=== PATIENT | female | born 1965 | race Caucasian/White ===

== ENCOUNTER → 2016-08-24 | Day surgery (SDC) | payer BC, OTHER ==
[2016-08-21 11:35] VITALS: Ht 162.6 cm; Wt 115.5 kg
[~2016-08-24] VITALS: Ht 162.6 cm; Wt 115.5 kg
[~2016-08-24] MED LIST: ATROPINE SULFATE 0.1 MG/ML 5ML SYR IV PRN; CALC500C70 PO; CYAN500T PO; EpHEDrine SULFATE INJ 50 MG/ML AMP IV PRN; FENTANYL CITRATE INJ 50 MCG/1 ML 2 ML VIAL ONE; LANS15CA6 PO; MULT-506 PO; PROPOFOL IV EMULSION 10 MG/ML 20 ML VIAL IV ONE; SIMV40TA2 PO; SODIUM CHLORIDE 0.9% 500ML 500 ML IV ONE; SUCR1TAB29 PO; SUMA50TA15 PO; ZNTT/150 PO
--- NOTE | 2016-08-24 11:50 | Endo History and Physical ---
History & Physical Date of Service: Aug 24, 2016. Chief Complaint: Reflux Referring Physician: Ramses Ng History of Present Illness 50 yo CF who presents for EGD secondary to GERD Past Medical History Arthritis, Reflux, Hypertension Past Surgical History Hx Cardiac Surgery: No Hx Internal Defibrillator: No Hx Pacemaker: No Hx Abdominal Surgery: Yes (MACI BSO, LAP BAND AND REMOVED AND GASTRIC BYPASS, LAP LYNN, APPY) Hx of Implantable Prosthesis: No Hx Post-Op Nausea and Vomiting: Yes Hx Cancer Surgery: No Hx Thoracic Surgery: No Hx Orthopedic: Yes (RT FOOT SURGERY) Hx Urinary Tract Surgery: Yes (CYSTO STONE BASKETING, LITHORIPSY, BLADDER SLING AND REPAIR TEAR) Social History Smoking Status: Never Smoker Hx Substance Use: No Hx Alcohol Use: No Allergies Coded Allergies: Penicillins (Verified Allergy, Unknown, ? REMEMBER, 08/24/16) Current Medications Reported Home Medications Medications Dose Route/Sig Max Daily Dose Days Date Category Carafate (Sucralfate) 1 Gm Tab 1 Tab PO QID 30 08/21/16 Reported Imitrex (Sumatriptan Succinate) 50 Mg Tab 50 Mg PO PRN PRN 08/21/16 Reported Prevacid (Lansoprazole) 15 Mg Capcr 15 Mg PO QAM 08/21/16 Reported Multivitamin (Multivitamins) Tab 1 Tab PO QAM 04/04/15 Reported Vitamin B-12 (Cyanocobalamin) 500 Mcg Tab 500 Mcg PO QAM 04/04/15 Reported Os-Chinedu 500 Plus D (Calcium/Vitamin D) Tab 1 Tab PO QAM 04/04/15 Reported Zocor (Simvastatin) 40 Mg Tab 40 Mg PO HS 10/25/08 Reported Zantac (Ranitidine HCl) 150 Mg Tab 300 Mg PO HS 10/25/08 Reported Vital Signs Weight (Kilograms): 115.45 Height (Feet): 5 Height (Inches): 4 Date Time Temp Pulse Resp B/P (MAP) Pulse Ox O2 Delivery O2 Flow Rate FiO2 08/24/16 11:26 36.6 88 20 149/87 (107) 95 Room Air Physical Exam General Appearance: WD/WN, no apparent distress Respiratory/Chest: Auscultation: breath sounds normal Cardiovascular: Heart Auscultation: RRR Abdomen: Bowel Sounds: normal Inspection & Palpation: soft, non-distended, no tenderness, guarding & rebound Assessment and Plan Assessment: 50 yo CF who presents for EGD secondary to GERD Plan: Proceed with EGD.
--- NOTE | 2016-08-24 12:12 | Discharge Instructions ---
Endoscopy Patient Instructions Date / Procedure(s) Performed Aug 24, 2016. EGD Allergy Information Coded Allergies: Penicillins (Verified Allergy, Unknown, ? REMEMBER, 08/24/16) Discharge Date / Findings Aug 24, 2016. Normal EGD s/p Ynaet-En-Y gastric bypass Medication Instructions OK to resume all medications today as prescribed Reported Home Medications Medications Dose Route/Sig Max Daily Dose Days Date Category Carafate (Sucralfate) 1 Gm Tab 1 Tab PO QID 30 08/21/16 Reported Imitrex (Sumatriptan Succinate) 50 Mg Tab 50 Mg PO PRN PRN 08/21/16 Reported Prevacid (Lansoprazole) 15 Mg Capcr 15 Mg PO QAM 08/21/16 Reported Multivitamin (Multivitamins) Tab 1 Tab PO QAM 04/04/15 Reported Vitamin B-12 (Cyanocobalamin) 500 Mcg Tab 500 Mcg PO QAM 04/04/15 Reported Os-Chinedu 500 Plus D (Calcium/Vitamin D) Tab 1 Tab PO QAM 04/04/15 Reported Zocor (Simvastatin) 40 Mg Tab 40 Mg PO HS 10/25/08 Reported Zantac (Ranitidine HCl) 150 Mg Tab 300 Mg PO HS 10/25/08 Reported Provider Instructions Activity Restrictions - No exercising or heavy lifting for 24 hours. - Do not drink alcohol the day of the procedure. - Do not drive a car or operate machinery until the day after the procedure. - Do not make any important decisions or sign important papers in 24 hours after the procedure. Following Day: - Return to full activity which may include returning to work/school. Diet Start your diet with liquids and light foods (jello, soup, juice, toast). Then eat your usual diet if not nauseated. Treatment For Common After Affects For mild abdominal pain, bloating, or excessive gas: - Rest - Eat lightly - Lie on right side Follow-Up Information Follow-up with Ramses Ng as scheduled Anesthesia Information What You Should Know You have had a procedure that required some medicine to reduce anxiety and discomfort. This treatment is called moderate sedation. After receiving the treatment, you may be sleepy, but you will be able to breathe on your own. The effects of the treatment may last for several hours. Follow these instructions along with Activity/Diet recommendations noted above: * Do NOT do anything where dizziness or clumsiness would be dangerous. * Rest quietly at home today, then you can be up and about tomorrow. * Have a responsible person stay with you the rest of today. * You may have had an I.V. today. If so, you may take the dressing off later today. Recommendations Call your doctor if: * Trouble breathing * Continuous vomiting for more than 24 hours * Temperature above 101 degrees * Severe abdominal pain or bloating * Pain not relieved by pain medicine ordered * There is increased drainage or redness from any incision * A large amount of rectal bleeding greater than 2-3 tablespoons. (If you had a polyp/s removed or have hemorrhoids, a small amount of blood - from the rectum is to be expected.) * You have any unanswered questions or concerns. IN THE EVENT OF A SERIOUS EMERGENCY, GO TO THE NEAREST EMERGENCY ROOM Your discharge instructions were prepared by provider Juan Jose Kat. Patient Instructions Signature Page Promise Wiseman Patient (or Guardian) Signature/Date: I have read and understand the instructions given to me by my caregivers. Caregiver/RN/Doctor Signature/Date: The above-named patient and/or guardian has received patient instructions on this date. + Original Patient Signature Page (only) stays with chart. Please make copy for patient.
--- NOTE | 2016-08-24 12:15 | GI REPORT ---
Procedure Date: 08/24/2016 11:46 AM Procedure: Upper GI endoscopy Indications: Suspected gastro-esophageal reflux disease Medicines: Monitored Anesthesia Care Complications: No immediate complications. Estimated Blood Loss: Estimated blood loss: none. Procedure: Pre-Anesthesia Assessment: - Prior to the procedure, a History and Physical was performed, and patient medications and allergies were reviewed. The patient's tolerance of previous anesthesia was also reviewed. The risks and benefits of the procedure and the sedation options and risks were discussed with the patient. All questions were answered, and informed consent was obtained. Prior Anticoagulants: The patient has taken no previous anticoagulant or antiplatelet agents. ASA Grade Assessment: III - A patient with severe systemic disease. After reviewing the risks and benefits, the patient was deemed in satisfactory condition to undergo the procedure. After obtaining informed consent, the endoscope was passed under direct vision. Throughout the procedure, the patient's blood pressure, pulse, and oxygen saturations were monitored continuously. The scope was introduced through the mouth, and advanced to the second part of duodenum. The upper GI endoscopy was accomplished without difficulty. The patient tolerated the procedure well. Findings: The esophagus was normal. Evidence of a Yanet-en-Y gastrojejunostomy was found. The gastrojejunal anastomosis was characterized by healthy appearing mucosa. This was traversed. The [id number] limb was not examined as it could not be found. The examined jejunum was normal. Impression: - Normal esophagus. - Yanet-en-Y gastrojejunostomy with gastrojejunal anastomosis characterized by healthy appearing mucosa. - Normal examined jejunum. - No specimens collected. Recommendation: - Resume previous diet. - Continue present medications. - Return to GI clinic as previously scheduled. Juan Jose Kat DO 08/24/2016 12:15:01 PM This report has been signed electronically. Note Initiated On: 08/24/2016 11:46 AM I attest to the content of the Intraoperative Record and orders documented therein, exceptions below
--- NOTE | 2016-08-24 12:32 | Anesthesiology Progress Note ---
Anesthesia Post Op Note Date & Time Aug 24, 2016 at 12:32 Vital Signs Pain Intensity: 0 Vital Signs Past 12 Hours Date Time Temp Pulse Resp B/P (MAP) Pulse Ox O2 Delivery O2 Flow Rate FiO2 08/24/16 12:18 77 16 137/77 (97) 94 Room Air 08/24/16 12:03 82 20 112/64 (80) 92 Room Air 08/24/16 11:26 36.6 88 20 149/87 (107) 95 Room Air Notes Mental Status: alert / awake / arousable, participated in evaluation Pt Amnestic to Procedure: Yes Nausea / Vomiting: adequately controlled Pain: adequately controlled Airway Patency, RR, SpO2: stable & adequate BP & HR: stable & adequate Hydration State: stable & adequate Anesthetic Complications: no major complications apparent
[2016-08-24 12:33] VITALS: BP 135/80; PULSE 82; O2SAT 95
== END | disposition home or self-care (01) ==
LOC: C.GI 11:08
PROVIDERS: ATTEND Internal Medicine
DX: K21.9 Gastro-esophageal reflux disease without esophagitis (principal); Z88.0 Allergy status to penicillin; Z98.84 Bariatric surgery status; Z90.49 Acquired absence of other specified parts of digestive tract; Z90.89 Acquired absence of other organs; Z98.890 Other specified postprocedural states; E66.01 Morbid (severe) obesity due to excess calories; Z68.41 Body mass index [BMI] 40.0-44.9, adult

== ENCOUNTER 2019-05-18 08:39 | Inpatient (IN) ==
--- NOTE | 2019-05-18 09:00 | Emergency Department Note ---
History of Present Illness General Chief complaint: Infection Stated complaint: PASSED KIDNEY STONE POSSIBLE INFECTION Time Seen by Provider: 05/18/19 08:53 History of Present Illness Maximum Pain Intensity: 8 This is a 53-year-old female that presents to the emergency department via priv ate vehicle with complaints of "passed kidney stone, possible infection". The patient states that on May 05 she underwent a laser procedure for nephrolithiasis. She notes that she then passed a part of the stone on Wednesday. She notes that since the procedure she has been experiencing low back pain, and now intermittent fevers, chills/aches, low back pain, diarrhea, nausea, vomiting. She notes the pain is achy like and does not radiate. Pain is worse with flexion and there are no upper respiratory symptoms. No recent travel. She did receive her flu vaccination. She notes decreased appetite. She notes watery bowel movements. She notes lower quadrant abdominal pain with pressure. She is worried there could be an infection. Overall discomfort is an 8/10. Home Medications Home Medications Medication Instructions Recorded Confirmed Type cyanocobalamin (vitamin B-12) 500 mcg PO QDL 05/18/19 05/18/19 History [Vitamin B-12] cyclobenzaprine 10 mg PO DAILY PRN 05/18/19 05/18/19 History famotidine [Pepcid] 20 mg PO BID 05/18/19 05/18/19 History metformin [Glucophage] 500 mg PO BID 05/18/19 05/18/19 History rosuvastatin [Crestor] 10 mg PO HS 05/18/19 05/18/19 History sumatriptan succinate [Imitrex] 50 mg PO DAILY PRN MDD 100 mg 05/18/19 05/18/19 History Allergies Allergy/AdvReac Type Severity Reaction Status Date / Time Penicillins Allergy Unknown ? REMEMBER Verified 05/18/19 09:29 codeine AdvReac Migraine Verified 05/18/19 09:29 levofloxacin [From Levaquin] AdvReac Dizziness Verified 05/18/19 09:29 Past Med/Surg History Medical History Hyperlipidemia Nephrolithiasis Type 2 diabetes mellitus Surgical History Status post laser lithotripsy of ureteral calculus Family History Father Myocardial infarction Uncle Myocardial infarction Uncle Myocardial infarction Denies family history of Stroke Social History Preferred Language: Romansh Communication Ability: Effective Director Of Convention Services Required: No Beliefs That Will Affect Care: None Current Living Situation: Spouse Feels Safe at Home: Yes Smoking Status: Never smoker Second Hand Exposure: No ; Hx Alcohol Use: No Hx Substance Use: No Review of Systems A total of 10 systems reviewed and were otherwise negative Physical Exam Vital Signs Vital Signs - 24 hr 05/18/19 08:43 05/18/19 11:00 Temperature 36.9 C Temperature Source Oral Pulse Rate 117 H Pulse Rate [Right Finger] 97 H Pulse Rhythm Regular Pulse Strength Normal Respiratory Rate 20 20 Respiratory Effort / Characteristics Non-Labored Spontaneous Non-Labored Spontaneous Respiratory Depth Normal Normal Respiratory Pattern Regular Regular Blood Pressure 168/82 H Blood Pressure [Right Arm] 178/70 H Blood Pressure Mean 110 Blood Pressure Mean [Right Arm] 106 Blood Pressure Position Sitting Blood Pressure Position [Right Arm] Lying Pulse Oximetry 93 93 Oxygen Delivery Method Room Air Room Air Sepsis Recent Fever Within 48 Hours Yes Sepsis New/Unexplained Change in Mental Status No Sepsis Action Taken by Nursing No Action Required VITAL SIGNS - Vital signs and nursing notes were reviewed. Tachycardic and afebrile. GENERAL -53-year-old female appearing her stated age who is in no acute distress. Communicates well with provider and answers questions appropriately. SKIN - Without rashes. HEAD - NC/AT. EYES - PERRL with EOMI bilaterally. Sclera anicteric. EARS - No deformities of external structures noted on gross examination bilaterally. NOSE - Midline and without cyanosis. No epistaxis or purulent drainage noted. MOUTH/OROPHARYNX - Without perioral cyanosis. No lymphadenopathy noted. No nuchal rigidity. LUNGS - Chest wall symmetric without accessory muscle use, intercostals retractions, or central cyanosis. Normal vesicular breath sounds CTA B/L. No wheezes, rales, or rhonchi appreciated. CARDIAC - RRR with S1/S2. No murmur, rubs, or gallops appreciated. ABDOMEN - Abdominal contour normal without pulsations or visible masses. BS normoactive all four quadrants. No tenderness, palpable masses, hepatosplenomegaly, or ascites noted. EXTREMITIES - No clubbing or peripheral cyanosis. No pretibial edema present. +5/5 strength noted in UE/LE bilaterally. NEUROLOGIC - Cranial nerves II through XII grossly intact. PSYCH - A&O, and cooperates fully with examiner. Pt is very pleasant and interacts well with examiner. Course Administered Medications Lactated Ringer's (Lr) 1,000 mls @ 120 mls/hr IV .Q8H20M FRED Stop: 06/17/19 14:18 Last Admin: 05/18/19 14:39 Dose: 120 mls/hr Documented by: [id number] Ioversol (Optiray 320 100ml) 93 ml IV ONCE PRN PRN Reason: Interaction Checking Stop: 05/22/19 10:42 Last Admin: 05/18/19 10:43 Dose: 93 ml Documented by: [id number] Discontinued Medications Sodium Chloride (Nss 1000ml) 1,000 mls @ 999 mls/hr IV .Q1H1M FRED Stop: 05/18/19 10:15 Last Infusion: 05/18/19 11:00 Dose: 0 mls/hr Documented by: [id number] Admin: 05/18/19 09:57 Dose: 999 mls/hr Documented by: [id number] Sodium Chloride (Nss 1000ml) 1,000 mls @ 999 mls/hr IV .Q1H1M FRED Stop: 05/18/19 12:45 Last Infusion: 05/18/19 15:08 Dose: 0 mls/hr Documented by: [id number] Admin: 05/18/19 12:32 Dose: 999 mls/hr Documented by: [id number] Ceftriaxone Sodium (Rocephin) 2,000 mg in 70 mls @ 140 mls/hr IV NOW STA Stop: 05/18/19 12:14 Last Infusion: 05/18/19 15:08 Dose: 0 mls/hr Documented by: [id number] Admin: 05/18/19 12:32 Dose: 140 mls/hr Documented by: [id number] Medical Decision Making Laboratory Data Result diagrams: 05/18/19 09:24 05/18/19 09:24 Lab Results 05/18/19 05/18/19 05/18/19 Range/Units 09:24 09:24 09:24 WBC 8.08 (4.8-10.8) K/uL RBC 4.74 (4.2-5.4) M/uL Hgb 14.7 (12.0-16.0) g/dL Hct 42.2 (37-47) % MCV 89.0 (80-100) fL MCH 31.0 (25-34) pg MCHC 34.8 (32-36) g/dL RDW Std Deviation 39.6 (36.4-46.3) fL RDW Coeff of Sayda 12.2 (11.5-14.5) % Plt Count 154 (130-400) K/uL MPV 9.5 (7.4-10.4) fL Immature Gran % (Auto) 0.4 % Neut % (Auto) 74.5 % Lymph % (Auto) 12.6 % [place] % (Auto) 11.0 % Eos % (Auto) 0.9 % Baso % (Auto) 0.6 % Immature Gran # (Auto) 0.03 H (0.00-0.02) K/uL Neut # (Auto) 6.02 (1.4-6.5) K/uL Lymph # (Auto) 1.02 L (1.2-3.4) K/uL [place] # (Auto) 0.89 H (0.11-0.59) K/uL Eos # (Auto) 0.07 (0-0.5) K/uL Baso # (Auto) 0.05 (0-0.2) K/uL Sodium 133 L (136-145) mmol/L Potassium 3.8 (3.5-5.1) mmol/L Chloride 102 (98-107) mmol/L Carbon Dioxide 24 (21-32) mmol/L Anion Gap 7.0 (3-11) BUN 12 (7-18) mg/dl Creatinine 0.95 (0.6-1.2) mg/dl Est Cr Clr Drug Dosing 84.5 ml/min Est GFR ( Amer) 79.3 Est GFR (Non-Af Amer) 68.4 BUN/Creatinine Ratio 12.3 (10-20) Glucose 268 H (70-99) mg/dl Calcium 8.9 (8.5-10.1) mg/dl Total Bilirubin 0.7 (0.2-1) mg/dl AST 17 (15-37) U/L ALT 45 (12-78) U/L Alkaline Phosphatase 102 (45-117) U/L Total Protein 7.4 (6.4-8.2) gm/dl Albumin 3.1 L (3.4-5.0) gm/dl Globulin 4.3 H (2.5-4.0) gm/dl Albumin/Globulin Ratio 0.7 L (0.9-2) Urine Color Dark Yellow Urine Appearance Cloudy A (Clear) Urine pH 5.5 (4.5-7.5) Ur Specific [place] 1.027 (1.000-1.030) Urine Protein 1+ H (Negative) Urine Glucose (UA) 3+ H (Negative) Urine Ketones 3+ H (Negative) Urine Blood 2+ H (Negative) Urine Nitrite Negative (Negative) Urine Bilirubin Negative (Negative) Urine Urobilinogen Negative (Negative) Ur Leukocyte Esterase Trace H (Negative) Urine WBC (Auto) >30 H (0-5) /hpf Urine RBC (Auto) 5-10 H (0-4) /hpf U Hyaline Cast (Auto) 10-30 H (0-5) /lpf U Epithel Cells (Auto) 20-30 H (0-5) /lpf Urine Bacteria (Auto) 2+ H (Negative) Urine Yeast Budding A (None Prsent) POC Ur Test (NEG) 05/18/19 Range/Units 09:24 WBC (4.8-10.8) K/uL RBC (4.2-5.4) M/uL Hgb (12.0-16.0) g/dL Hct (37-47) % MCV (80-100) fL MCH (25-34) pg MCHC (32-36) g/dL RDW Std Deviation (36.4-46.3) fL RDW Coeff of Sayda (11.5-14.5) % Plt Count (130-400) K/uL MPV (7.4-10.4) fL Immature Gran % (Auto) % Neut % (Auto) % Lymph % (Auto) % [place] % (Auto) % Eos % (Auto) % Baso % (Auto) % Immature Gran # (Auto) (0.00-0.02) K/uL Neut # (Auto) (1.4-6.5) K/uL Lymph # (Auto) (1.2-3.4) K/uL [place] # (Auto) (0.11-0.59) K/uL Eos # (Auto) (0-0.5) K/uL Baso # (Auto) (0-0.2) K/uL Sodium (136-145) mmol/L Potassium (3.5-5.1) mmol/L Chloride (98-107) mmol/L Carbon Dioxide (21-32) mmol/L Anion Gap (3-11) BUN (7-18) mg/dl Creatinine (0.6-1.2) mg/dl Est Cr Clr Drug Dosing ml/min Est GFR ( Amer) Est GFR (Non-Af Amer) BUN/Creatinine Ratio (10-20) Glucose (70-99) mg/dl Calcium (8.5-10.1) mg/dl Total Bilirubin (0.2-1) mg/dl AST (15-37) U/L ALT (12-78) U/L Alkaline Phosphatase (45-117) U/L Total Protein (6.4-8.2) gm/dl Albumin (3.4-5.0) gm/dl Globulin (2.5-4.0) gm/dl Albumin/Globulin Ratio (0.9-2) Urine Color Urine Appearance (Clear) Urine pH (4.5-7.5) Ur Specific [place] (1.000-1.030) Urine Protein (Negative) Urine Glucose (UA) (Negative) Urine Ketones (Negative) Urine Blood (Negative) Urine Nitrite (Negative) Urine Bilirubin (Negative) Urine Urobilinogen (Negative) Ur Leukocyte Esterase (Negative) Urine WBC (Auto) (0-5) /hpf Urine RBC (Auto) (0-4) /hpf U Hyaline Cast (Auto) (0-5) /lpf U Epithel Cells (Auto) (0-5) /lpf Urine Bacteria (Auto) (Negative) Urine Yeast (None Prsent) POC Ur Test NEG (NEG) Imaging Data Radiologist's Impression: CT abd pelvis IV con only CLINICAL HISTORY: 53 years-old Female presenting with back pain, tachycardia, fever, chills, aches. TECHNIQUE: Multidetector CT of the abdomen and pelvis was performed after the administration of intravenous contrast. IV contrast: 93 mL of Optiray 320. One or more dose lowering techniques were used consistent with the principles of ALARA (as low as reasonably achievable), including automatic exposure control, mA or kV adjustment to individual patient size, and/or use of iterative reconstruction. COMPARISON: 12/08/2017. CT DOSE (mGy.cm): The estimated cumulative dose is 1745.89 mGy.cm. FINDINGS: Head Of Precision Targeting topogram: Unremarkable. Lung bases: Normal heart size. No pericardial or pleural effusion. Minimal dependent changes likely atelectasis. Liver: Normal morphology. Density consistent with severe hepatic steatosis. No focal lesion. Patent hepatic vasculature. Biliary: No intrahepatic or extrahepatic biliary ductal dilatation. Gallbladder surgically absent. Pancreas: Moderate parenchymal atrophy. Spleen: Accessory spleen near the splenic hilum. Adrenal glands: Normal. Kidneys and ureters: Moderate to severe right pelvocaliectasis and distention of the right ureter with diffuse urothelial thickening. Obstructing 4 mm calculus in the distal right ureter a few centimeters proximal to the right ureterovesical junction. There is mild delayed perfusion of the right kidney. An additional right renal calculus is noted at the lower pole measuring 5 mm, which is nonobstructing. Right renal cysts noted. No left nephrolithiasis. Asymmetric right moderate perinephric fat stranding. Left ureter nondistended. Bladder: Normal. No bladder calculi. Pelvic organs: Uterus surgically absent. Bowel: Fatty atrophy of the appendix suspected. No bowel obstruction. Postsurgical changes of antecolic Yanet-en-Y gastric bypass. Distal anastomosis widely patent. No pathologic distention of the excluded stomach. Few foci of gas in the stomach are evident. A gastrogastric fistula is difficult to exclude. Peritoneal cavity: No free fluid or intraperitoneal gas. Trace retroperitoneal fluid on the right. Lymph nodes: No enlarged lymph nodes in the abdomen or pelvis. Vasculature: Atherosclerosis of the normal caliber abdominal aorta. IVC patent. Abdominal wall: Small fat-containing umbilical hernia. Musculoskeletal: Degenerative changes of the spine. Degenerative changes of the sacral iliac joints. IMPRESSION: 1. Obstructing 4 mm calculus in the distal right ureter a few centimeters proximal to the right UVJ with resultant moderate to severe right hydroureteronephrosis. 2. Additional nonobstructing right nephrolithiasis. 3. Postsurgical changes of Yanet-en-Y gastric bypass. No bowel obstruction. 4. The presence of gas in the stomach is nonspecific though can be seen in the setting of a gastrogastric fistula. Argument against the presence of such a fistula is lack of distention of the excluded stomach. Correlate if there has be en weight gain. 5. Severe hepatic steatosis. ACT 112: Negative or not required by law. Electronically signed by: Jeovanny Devine M.D. 05/18/2019 10:57 AM SINGLE VIEW CHEST CLINICAL HISTORY: Preoperative examination FINDINGS: An AP, portable, upright chest radiograph is compared to study dated 04/08/2015. The cardiomediastinal silhouette is unremarkable. There is mild elevation of the right hemidiaphragm and bibasilar atelectasis. No airspace consolidation or large pleural effusion is identified. No pneumothorax is seen. The bony thorax is grossly intact. IMPRESSION: No active disease in the chest. ACT 112: Negative or not required by law. Electronically signed by: Ryan Florence M.D. 05/18/2019 1:25 PM MDM Narrative Patient was seen and evaluated as above in room B9. Review was performed of nursing notes and vital signs. After obtaining a thorough history and physical examination the above work up was performed. She presents to us today with back pain in the setting of recent urologic procedure. She has a history of stones. She passed a small part of the stone a few days ago. She is nontoxic on exam but is tachycardic. Given the recent history with her presentation it was felt that further work-up here was warranted. A CT scan of the abdomen pelvis was obtained and there is an obstructing 4 mm calculus in the distal right ureter a few centimeters proximal to the right UVJ with resultant moderate to severe right-sided hydroureteronephrosis. Additionally, the urinalysis is concerning for that of infection. She also subjectively has fevers. With this finding I did reach out to our on-call urologist as that was the patient preference rather than being transferred back to [facility], and in speaking with our urology team recommendation is for admission to the medicine team with urology consult with a ddition of fluids, n.p.o. and antibiotics. IV Rocephin was ordered. There is no leukocytosis or anemia. No emergent metabolic disturbance. Mild hyperglycemia in the setting of known diabetes. UPT is negative. Patient remitted for further evaluation and management. I did add on blood culture. 2 g Rocephin was ordered. Fluids were also ordered. Please refer to further documentation regarding her stay. I was asked by the urology team preoperatively to obtain an EKG and chest x-ray. These are as above. EKG is normal sinus rhythm, rate of 92 bpm. There is a QTC of 425. No ST elevation. This 60. EKG of April 08, 2015 and no significant change was found. Case was discussed with the attending physician. In the evaluation and treatment of this patient the following differential diagnoses were entertained: UTI, pyelonephritis, sepsis, pneumonia, dissection, torsion, infected ureteral calculi, among others. Impression & Plan Hydronephrosis with urinary obstruction due to ureteral calculus, UTI (urinary tract infection) Discharge Plan Visit Data *Final* Discharge Date/Time: 05/18/19 13:56 Chief Complaint: Infection Stated Complaint: PASSED KIDNEY STONE POSSIBLE INFECTION ED Provider: Nikko Whipple ED Midlevel Provider: John Montanez Discharge Problem: Hydronephrosis with urinary obstruction due to ureteral calculus, UTI (urinary tract infection) Patient Disposition: Admitted As Inpatient Condition: Good Discharge Instructions Interventions: ED Discharge Assessment Last Done: 05/18/19 13:56
[2019-05-18] MEDS ORDERED: SODIUM CHLORIDE 0.9% 1000ML 1,000 ML IV SCH ×2 (09:15→11:45)
[2019-05-18 09:54] LABS: Basophils # (auto) 0.05 K/uL (0-0.2); Basophils % (auto) 0.6 %; Eosinophils # (auto) 0.07 K/uL (0-0.5); Eosinophils % (auto) 0.9 %; Hematocrit (blood only) 42.2 % (37-47); Hemoglobin 14.7 g/dL (12.0-16.0); Immature Granulocytes # (auto) 0.03 K/uL (0.00-0.02); Immature Granulocytes % (auto) 0.4 %; Lymphocytes # (auto) 1.02 K/uL (1.2-3.4); Lymphocytes % (auto) 12.6 %; Mean Corpuscular Hgb Conc 34.8 g/dL (32-36); Mean Platelet Volume 9.5 fL (7.4-10.4); Monocytes # (auto) 0.89 K/uL (0.11-0.59); Neutrophils # (auto) 6.02 K/uL (1.4-6.5); Neutrophils % (auto) 74.5 %; Platelet Count 154 K/uL (130-400); RDW Coefficient of Variation 12.2 % (11.5-14.5); RDW Standard Deviation 39.6 fL (36.4-46.3); Red Blood Count 4.74 M/uL (4.2-5.4); White Blood Count 8.08 K/uL (4.8-10.8)
[2019-05-18 10:01] LABS: Appearance Urine Cloudy (Clear); Bilirubin Urine Negative (Negative); Blood Urine 2+ (Negative); Color Urine Dark Yellow; Epithelial Cell Urine Auto 20-30 /lpf (0-5); Glucose Urine UA 3+ (Negative); Leukocyte Esterase Urine Trace (Negative); Nitrite Urine Negative (Negative); Protein Urine 1+ (Negative); Specific Gravity Urine 1.027 (1.000-1.030); Urobilinogen Urine Negative (Negative); WBC Urine Automated >30 /hpf (0-5); pH Urine 5.5 (4.5-7.5)
[2019-05-18 10:07] LABS: Ketones Urine 3+ (Negative)
[2019-05-18 10:14] LABS: Bacteria Urine Automated 2+ (Negative)
[2019-05-18 10:17] LABS: Albumin Level 3.1 gm/dl (3.4-5.0); BUN Creatinine Ratio 12.3 (10-20); Calcium 8.9 mg/dl (8.5-10.1); Creatinine Clr Calc Pharmacy 84.5 ml/min; Est GFR (African American) 79.3; Est GFR (Non-African American) 68.4; Potassium 3.8 mmol/L (3.5-5.1)
[2019-05-18 10:20] LABS: Albumin Globulin Ratio 0.7 (0.9-2); Bilirubin,Total 0.7 mg/dl (0.2-1); Globulin 4.3 gm/dl (2.5-4.0); Total Protein 7.4 gm/dl (6.4-8.2)
[2019-05-18] MEDS ORDERED: IOVERSOL 100ml IV PRN (10:43)
--- NOTE | 2019-05-18 10:58 | CT Scan Report ---
CT abd pelvis IV con only CLINICAL HISTORY: 53 years-old Female presenting with back pain, tachycardia, fever, chills, aches. TECHNIQUE: Multidetector CT of the abdomen and pelvis was performed after the administration of intra venous contrast. IV contrast: 93 mL of Optiray 320. One or more dose lowering techniques were used co nsistent with the principles of ALARA (as low as reasonably achievable), including automatic exposure control, mA or kV adjustment to individual patient size, and/or use of iterative reconstruction. COMPARISON: 12/08/2017. CT DOSE (mGy.cm): The estimated cumulative dose is 1745.89 mGy.cm. FINDINGS: Insurance Service Representative topogram: Unremarkable. Lung bases: Normal heart size. No pericardial or pleural effusion. Minimal dependent changes likely a telectasis. Liver: Normal morphology. Density consistent with severe hepatic steatosis. No focal lesion. Patent h epatic vasculature. Biliary: No intrahepatic or extrahepatic biliary ductal dilatation. Gallbladder surgically absent. Pancreas: Moderate parenchymal atrophy. Spleen: Accessory spleen near the splenic hilum. Adrenal glands: Normal. Kidneys and ureters: Moderate to severe right pelvocaliectasis and distention of the right ureter wit h diffuse urothelial thickening. Obstructing 4 mm calculus in the distal right ureter a few centimete rs proximal to the right ureterovesical junction. There is mild delayed perfusion of the right kidney . An additional right renal calculus is noted at the lower pole measuring 5 mm, which is nonobstructi ng. Right renal cysts noted. No left nephrolithiasis. Asymmetric right moderate perinephric fat stran ding. Left ureter nondistended. Bladder: Normal. No bladder calculi. Pelvic organs: Uterus surgically absent. Bowel: Fatty atrophy of the appendix suspected. No bowel obstruction. Postsurgical changes of antecol ic Yanet-en-Y gastric bypass. Distal anastomosis widely patent. No pathologic distention of the exclud ed stomach. Few foci of gas in the stomach are evident. A gastrogastric fistula is difficult to exclu de. Peritoneal cavity: No free fluid or intraperitoneal gas. Trace retroperitoneal fluid on the right. Lymph nodes: No enlarged lymph nodes in the abdomen or pelvis. Vasculature: Atherosclerosis of the normal caliber abdominal aorta. IVC patent. Abdominal wall: Small fat-containing umbilical hernia. Musculoskeletal: Degenerative changes of the spine. Degenerative changes of the sacral iliac joints. IMPRESSION: 1. Obstructing 4 mm calculus in the distal right ureter a few centimeters proximal to the right UVJ with resultant moderate to severe right hydroureteronephrosis. 2. Additional nonobstructing right nephrolithiasis. 3. Postsurgical changes of Yanet-en-Y gastric bypass. No bowel obstruction. 4. The presence of gas in the stomach is nonspecific though can be seen in the setting of a gastroga stric fistula. Argument against the presence of such a fistula is lack of distention of the excluded stomach. Correlate if there has been weight gain. 5. Severe hepatic steatosis. ACT 112: Negative or not required by law. Electronically signed by: Jeovanny Devine M.D. 05/18/2019 10:57 AM
[2019-05-18] MEDS ORDERED: cefTRIAXone SODIUM 2,000 MG/70 ML BAG IV STA (11:45)
--- NOTE | 2019-05-18 12:47 | History & Physical Report ---
Date of Service May 18, 2019 Assessment & Plan (1) Fever: Concerning given recent stent with removal on 05/10 UA noted for trace leuk est and neg nitrites, budding yeast Urine cx pending Started on rocephine, flagyl WBC WNL Blood cx pending (2) Nephrolithiasis: Noted on CTAP Urology c/s pending, ED states they discussed recs for NPO with IVF, abx Rocephin started in the ED, will continue (3) Type 2 diabetes mellitus: Last metformin dose was 05/14 due to feeling unwell SSI PRN Holding metformin A1c pending (4) Hyperlipidemia: holding statin (5) Migraine: None x6 months, continue home meds (6) GERD (gastroesophageal reflux disease): holding home meds (7) Hepatic steatosis: Discussed with pt, advised monitoring refined sugar and carbs t/c milk thistle (8) DVT prophylaxis: SCDs given possible need for procedure History of Present Illness Primary Care Provider: Ramses Ng 53 y/o F c/o feeling unwell. Pt states that she had a laser kidney stone removal with stent placement on the R at [facility] on 05/05 for an obstructing stone. She did well with this. She had f/u on 05/10 for stent removal and no issues at that time. On Wednesday, pt started to feel unwell. She started to have pain across her lower back, b/l. It has persistent but is not as intense and is much lower than the pain she had prior with her stone. She has developed nausea without emesis. She has diarrhea. She has crampy abd pain that comes and goes. No dysuria or increased frequency. She states that this feels different than with her stone in April. She is having fevers with this episode. Pt states she has not taken her metformin since Wednesday. She was dx with DM 07/2018. She does not check home BS. Pt denies SOB, chest pain, LE pain or swelling. Pt states she feels a bit improved s/p ED interventions, which so far are IVF and pain medications. Abx are ordered but not given yet. Allergies Allergy/AdvReac Type Severity Reaction Status Date / Time Penicillins Allergy Unknown ? REMEMBER Verified 05/18/19 09:29 codeine AdvReac Migraine Verified 05/18/19 09:29 levofloxacin [From Levaquin] AdvReac Dizziness Verified 05/18/19 09:29 Home Medications Home Medications Medication Instructions Recorded Confirmed Type cyanocobalamin (vitamin B-12) 500 mcg PO QDL 05/18/19 05/18/19 History [Vitamin B-12] cyclobenzaprine 10 mg PO DAILY PRN 05/18/19 05/18/19 History famotidine [Pepcid] 20 mg PO BID 05/18/19 05/18/19 History metformin [Glucophage] 500 mg PO BID 05/18/19 05/18/19 History rosuvastatin [Crestor] 10 mg PO HS 05/18/19 05/18/19 History sumatriptan succinate [Imitrex] 50 mg PO DAILY PRN MDD 100 mg 05/18/19 05/18/19 History Past Med/Surg History Family History (Updated 05/18/19 @ 13:01 by Chari Santos DO) Father Myocardial infarction Uncle Myocardial infarction Uncle Myocardial infarction Denies family history of Stroke Social History (Updated 05/18/19 @ 13:01 by Chari Santos DO) Preferred Language: Guatemalan Feels Safe at Home: Yes Smoking Status: Never smoker Hx Alcohol Use: No Hx Substance Use: No Review of Systems Review of Systems: Pertinent positives and negatives reviewed in HPI--all others negative Physical Exam Constitutional: WD/WN, vitals as above Eyes: normal visual brown by confrontation and + anicteric sclerae Neck: normal visual inspection and trachea midline Respiratory: normal respiratory effort, lungs clear to auscultation Cardiovascular: Rate/Rhythm: regular rate and regular rhythm Gastrointestinal (Abdomen): Inspection/Auscultation: abdomen not distended Percussion/Palpation: abdomen soft; abdomen nontender Musculoskeletal: Head/Neck/Chest: normocephalic and head atraumatic negative for edema, peripheral pulses intact B/L CVA TTPercussion Skin: no rashes, warm and dry Neurologic: awake; not confused Speech / Cognition: normal speech Psychiatric: A+Ox3, euthymic affect Results & Data Vital Signs (Past 12 Hours) Vital Signs Temp Pulse Pulse Resp BP BP Pulse Ox 05/18/19 11:00 97 H 20 178/70 H 93 05/18/19 08:43 36.9 C 117 H 20 168/82 H 93 Diagnostic Findings CTAP: R 4mm obstructing renal stone, possible fistula although listed as less likely, severe hepatic steatosis Code Status & VTE Plan Code Status Full code VTE Prophylaxis Plan VTE Prophylaxis will be ordered: Yes PG Care Time/CCT Total # of Minutes Spent Total Time Spent with Patient: Total time spent is greater than 50% in coordination of care (as documented) at patient's floor/unit and/or counseling patient: Coding Level of Care Code 17960 Initial Inpt Care Lvl 3 Diagnoses Fever R50.9 Nephrolithiasis N20.0 Type 2 diabetes mellitus E11.9 Hyperlipidemia E78.5 Migraine G43.909 GERD (gastroesophageal reflux disease) K21.9 Hepatic steatosis K76.0 DVT prophylaxis Z29.9
--- NOTE | 2019-05-18 13:26 | XRay Report ---
SINGLE VIEW CHEST CLINICAL HISTORY: Preoperative examination FINDINGS: An AP, portable, upright chest radiograph is compared to study dated 04/08/2015. The cardiome diastinal silhouette is unremarkable. There is mild elevation of the right hemidiaphragm and bibasila r atelectasis. No airspace consolidation or large pleural effusion is identified. No pneumothorax is seen. The bony thorax is grossly intact. IMPRESSION: No active disease in the chest. ACT 112: Negative or not required by law. Electronically signed by: Ryan Florence M.D. 05/18/2019 1:25 PM
--- NOTE | 2019-05-18 13:33 | Urology Consultation ---
Date of Consultation May 18, 2019 Assessment & Plan (1) Hydronephrosis: (2) Right ureteral stone: 53 yo F with multiple comorbidities admitted for suspected UTI, fever and hydronephrosis secondary to obstructing 4 mm right ureteral stone. - Keep NPO - Strain all urine Findings reviewed with Dr. Aguilera. Given her suspected UTI, fever, and hydronephrosis in the context of an obstructing 4 mm right ureteral stone, will proceed with OR for cystoscopy, right retrograde pyelogram and right stent placement. Risks and benefits to be reviewed with patient by Dr. Aguilera. OR notified. Preoperative CXR and EKG ordered in ED. Will cover with IV Ceftriaxone preoperatively, initiated in ED. History of Present Illness Reason for Consultation: Nephrolithiasis History of Present Illness 53 yo F with PMHx of type 2 diabetes, hyperlipidemia, migraine, nephrolithiasis, and hydronephrosis admitted with suspected UTI, fever, and hydronephrosis secondary to obstructing 4 mm right ureteral stone. Called from ED for urology consultation for ureteral stone. Patient known to our service, follows with Dr. Mahajan for nephrolithiasis and hydronephrosis. Patient presented to [facility] ED on 05/18/2019 with fever, back pain, and nausea x 2 days. Reports recent right ureteroscopy, laser lithotripsy, and right stent placement for ~5 mm right stone on 05/05/19 at [place]. Reports she passed a stone following procedure. She had right stent removed on 05/11/19. She states that 2 days ago she developed fever, low back pain and nausea. She reports fever of T-104 F yesterday, and T-102.1 F this morning. Chart review: Afebrile in ED - 36.9 C Creatinine 0.95 WBC 8.08 UA 2+ blood, trace leuks, WBC > 30, RBC 5-10, 2+ bacteria, budding yeast, negative nitrites UC&S obtained - pending BCx obtained - pending IV Ceftriaxone initiated Imaging: IMPRESSION: 1. Obstructing 4 mm calculus in the distal right ureter a few centimeters proximal to the right UVJ with resultant moderate to severe right hydroureteronephrosis. 2. Additional nonobstructing right nephrolithiasis. 3. Postsurgical changes of Yanet-en-Y gastric bypass. No bowel obstruction. 4. The presence of gas in the stomach is nonspecific though can be seen in the setting of a gastrogastric fistula. Argument against the presence of such a fistula is lack of distention of the excluded stomach. Correlate if there has been weight gain. 5. Severe hepatic steatosis. Pt examined in ED. Awake, alert and sitting up on litter. at bedside. Denies abdominal, flank, or suprapubic pain. Mild nausea, no vomiting. Denies fever or chills at present. Voiding spontaneously. No urgency, frequency, or dysuria. Reports intermittent hematuria since recent urology procedure, improved since stent removal. NPO since yesterday. Allergies Allergy/AdvReac Type Severity Reaction Status Date / Time Penicillins Allergy Unknown ? REMEMBER Verified 05/18/19 09:29 codeine AdvReac Migraine Verified 05/18/19 09:29 levofloxacin [From Levaquin] AdvReac Dizziness Verified 05/18/19 09:29 Home Medications Home Medications Medication Instructions Recorded Confirmed Type cyanocobalamin (vitamin B-12) 500 mcg PO QDL 05/18/19 05/18/19 History [Vitamin B-12] cyclobenzaprine 10 mg PO DAILY PRN 05/18/19 05/18/19 History famotidine [Pepcid] 20 mg PO BID 05/18/19 05/18/19 History metformin [Glucophage] 500 mg PO BID 05/18/19 05/18/19 History rosuvastatin [Crestor] 10 mg PO HS 05/18/19 05/18/19 History sumatriptan succinate [Imitrex] 50 mg PO DAILY PRN MDD 100 mg 05/18/19 05/18/19 History Patient History Medical History (Updated 05/18/19 @ 13:41 by AVEL Davis) Hyperlipidemia Nephrolithiasis Type 2 diabetes mellitus Surgical History (Updated 05/18/19 @ 13:41 by AVEL Davis) Status post laser lithotripsy of ureteral calculus Family History Father Myocardial infarction Uncle Myocardial infarction Uncle Myocardial infarction Denies family history of Stroke Social History Preferred Language: Maldivian Communication Ability: Effective Operation Specialist Required: No Beliefs That Will Affect Care: None Current Living Situation: Spouse Other Information That Helps Us Care for You: No Feels Safe at Home: Yes Safety Concerns: Feels Safe At This Time Smoking Status: Never smoker Do You Dip or Chew Tobacco: No ; Second Hand Exposure: No ; Tobacco Cessation Education Requested by Patient: No Hx Alcohol Use: No Hx Substance Use: No Review of Systems Constitutional: as per Subjective / HPI Gastrointestinal: as per Subjective / HPI Genitourinary: as per Subjective / HPI Physical Exam Constitutional: well developed, well nourished and + obese; no acute distress and not ill appearing nontoxic Respiratory: normal respiratory effort and able to speak in complete sentences; no respiratory distress and no labored breathing Cardiovascular: Extremities: no pedal edema Gastrointestinal (Abdomen): Inspection/Auscultation: abdomen normal to inspection; abdomen not distended Percussion/Palpation: abdomen soft; abdomen nontender and no guarding Skin: Facial flushing Neurologic: moves all extremities and awake Psychiatric: A+Ox3, euthymic affect Genitourinary: + CVA tenderness (mild tenderness to palpation on right ) Results & Data Vital Signs (Past 12 Hours) Vital Signs Temp Pulse Pulse Resp BP BP Pulse Ox 05/18/19 11:00 97 H 20 178/70 H 93 05/18/19 08:43 36.9 C 117 H 20 168/82 H 93 PG Care Time/CCT Total # of Minutes Spent Total Time Spent with Patient: Total time spent is greater than 50% in coordination of care (as documented) at patient's floor/unit and/or counseling patient: Coding Level of Care Code 69737 Inpt Consult Level 3 Diagnoses Hydronephrosis N13.30 Right ureteral stone N20.1
[2019-05-18] MEDS ORDERED: GLUCAGON FOR INJ 1 MG VIAL SQ PRN (14:19)
[2019-05-18] MEDS ORDERED: GLUCOSE 10 TABS/TUBE PO PRN (14:19)
[2019-05-18] MEDS ORDERED: SUMAtriptan succinate 50 MG TAB PO PRN (14:19)
[2019-05-18] MEDS ORDERED: CARBOHYDRATES FOR HYPOGLYCEMIA PO PRN (14:19)
[2019-05-18] MEDS ORDERED: GLUCOSE 40% GEL 15 GM TUBE PO PRN (14:19)
[2019-05-18] MEDS ORDERED: DEXTROSE 50% 50 ML SYRINGE IV PRN (14:19)
[2019-05-18] MEDS ORDERED: MAGNESIUM HYDROXIDE SUSP 30 ML UDC PO PRN (14:19)
[2019-05-18] MEDS ORDERED: ONDANSETRON INJ 2 MG/ML 2 ML VIAL IV PRN ×2 (14:19→16:49)
[2019-05-18] MEDS: LACTATED RINGER'S 1,000 ML IV SCH ×2 (14:39→21:02)
[2019-05-18] MEDS ORDERED: PROPOFOL IV EMULSION 10 MG/ML 20 ML VIAL IV ONE (16:43)
[2019-05-18] MEDS ORDERED: LIDOCAINE HCL 2% 2 ML VIAL/AMP(20MG/ML) INFIL ONE (16:43)
[2019-05-18] MEDS ORDERED: MIDAZOLAM HCL 1 MG/ML 2ML VIAL ONE (16:43)
[2019-05-18] MEDS ORDERED: ONDANSETRON INJ 2 MG/ML 2 ML VIAL ONE (16:43)
[2019-05-18] MEDS ORDERED: fentaNYL citrate 100 MCG/2 ML VIAL ONE (16:43)
--- NOTE | 2019-05-18 16:48 | Anesthesiology Consultation ---
Date of Service May 18, 2019 Assessment & Plan ASA ASA3 Proposed Anesthesia Anesthesia Type: MAC Risk / Benefits Reviewed With: PT / POA / Parent / Guardian, Accepts Plan and Informed Consent Obtained History Surgery Operation Date: 05/18/19 17:15 Proposed Procedures p Cystoscopy, Right Stent Placement - Zack Aguilera, DO Height/Weight Height: 5 ft 4 in Weight: 113.4 kg Allergies Allergy/AdvReac Type Severity Reaction Status Date / Time Penicillins Allergy Unknown ? REMEMBER Verified 05/18/19 09:29 codeine AdvReac Migraine Verified 05/18/19 09:29 levofloxacin [From Levaquin] AdvReac Dizziness Verified 05/18/19 09:29 Medications Home Medications Medication Instructions Recorded Confirmed Last Taken cyanocobalamin (vitamin B-12) 500 mcg PO QDL 05/18/19 05/18/19 05/16/19 [Vitamin B-12] cyclobenzaprine 10 mg PO DAILY PRN 05/18/19 05/18/19 Unknown famotidine [Pepcid] 20 mg PO BID 05/18/19 05/18/19 05/16/19 metformin [Glucophage] 500 mg PO BID 05/18/19 05/18/19 05/16/19 rosuvastatin [Crestor] 10 mg PO HS 05/18/19 05/18/19 05/16/19 sumatriptan succinate [Imitrex] 50 mg PO DAILY PRN MDD 100 mg 05/18/19 05/18/19 Unknown Active Medications Generic Name Dose Route Start Last Admin Trade Name Freq PRN Reason Stop Dose Admin Lactated Ringer's 1,000 mls @ 120 mls/hr 05/18/19 14:19 05/18/19 14:39 Lr IV 06/17/19 14:18 120 mls/hr .[id number] FRED Administration Ioversol 93 ml 05/18/19 10:43 05/18/19 10:43 Optiray 320 100ml IV 05/22/19 10:42 93 ml ONCE PRN Administration Interaction Checking NPO Date Last Intake of Fluids: 05/18/19 Time Last Intake of Fluids: 07:00 Last Intake of Fluids Comment: sips Date Last Intake of Solids: 05/17/19 Time Last Intake of Solids: 15:00 Past Medical History Medical History Hyperlipidemia Nephrolithiasis Type 2 diabetes mellitus Exercise / Class Metabolic Activity II 4-5 Yardwork/Stairs/Walk up hill Past Family History Family History Father Myocardial infarction Uncle Myocardial infarction Uncle Myocardial infarction Denies family history of Stroke Past Surgical History Surgical History Status post laser lithotripsy of ureteral calculus Past Anesthesia History No Hx of Anesthesia Complications and No Family Hx of Anesthesia Complications History of PONV No Hx of PONV and No Hx of Motion Sickness Social History Smoking Status: Never smoker Do You Dip or Chew Tobacco: No Hx Alcohol Use: No Hx Substance Use: No substance use type: does not use Review of Systems denies fever/cough/ colds/ chest pain/ SOB/ ABRAN Constitutional: no fever and no chills Respiratory: no cough and no dyspnea denies ABRAN Cardiovascular: no chest pain and no dyspnea on exertion Physical Exam Vital Signs Last Vital Signs Temp 38.3 C H 05/18/19 16:34 Pulse 100 H 05/18/19 16:34 Resp 20 05/18/19 16:34 BP 162/72 H 05/18/19 16:34 Pulse Ox 93 05/18/19 16:34 ENMT Mouth: no TMJ abnormality and no dentition abnormality Thyromental Distance: > or= 3.5 Finger Breadths Mallampati Class: II Neck neck extension not limited Respiratory normal respiratory effort; no respiratory distress Auscultation: lungs clear to auscultation bilaterally Cardiovascular Rate/Rhythm: regular rate and regular rhythm Neurologic moves all extremities Psychiatric Orientation: alert and oriented x 3 Testing Laboratory Results 05/18/19 09:24 05/18/19 09:24 Urine Color Dark Yellow 05/18/19 09:24 Urine Appearance Cloudy (Clear) A 05/18/19 09:24 Urine pH 5.5 (4.5-7.5) 05/18/19 09:24 Ur Specific [place] 1.027 (1.000-1.030) 05/18/19 09:24 Urine Protein 1+ (Negative) H 05/18/19 09:24 Urine Glucose (UA) 3+ (Negative) H 05/18/19 09:24 Urine Ketones 3+ (Negative) H 05/18/19 09:24 Urine Nitrite Negative (Negative) 05/18/19 09:24 Ur Leukocyte Esterase Trace (Negative) H 05/18/19 09:24 Urine WBC (Auto) >30 /hpf (0-5) H 05/18/19 09:24 Urine RBC (Auto) 5-10 /hpf (0-4) H 05/18/19 09:24 U Hyaline Cast (Auto) 10-30 /lpf (0-5) H 05/18/19 09:24 U Epithel Cells (Auto) 20-30 /lpf (0-5) H 05/18/19 09:24 Urine Bacteria (Auto) 2+ (Negative) H 05/18/19 09:24 05/18/19 16:29 POC Glucose 183 H 05/18/19 09:24 POC Ur Test NEG
[2019-05-18] MEDS ORDERED: ATROPINE SULFATE 0.1 MG/ML 10ML SYR IV PRN (16:49)
[2019-05-18] MEDS ORDERED: ePHEDrine sulfate 50 MG/ML AMP IV PRN (16:49)
[2019-05-18] MEDS ORDERED: HYDROmorphone INJ 2 MG/ML SYR/VIAL IV PRN (16:49)
[2019-05-18] MEDS ORDERED: fentaNYL citrate 100 MCG/2 ML VIAL IV PRN (16:49)
[2019-05-18] MEDS: metroNIDAZOLE 500 MG/100 ML BAG IV SCH ×2 (16:57→22:15)
[2019-05-18] MEDS ORDERED: CONRAY 60% 50 ML VIAL INSTIL ONE (17:15)
--- NOTE | 2019-05-18 17:15 | Operative Report ---
PG Post Operative Report Pre & Post Diagnosis Operation Date: 05/18/19 17:15 Pre-Op Diagnosis: Right ureteral Stone Post-Op Diagnosis: Right ureteral Stone I identified the patient and participated in the time-out.: Yes Procedure Operation Date: 05/18/19 17:15 Actual Procedures p Cystoscopy, Right stone extraction, retrograde pyelogram, aspiration, and Stent Placement(Right) - Zack Aguilera, Surgeon Zack Aguilera, II, DO Professor Of Biochemistry None Estimated Blood Loss 1 Findings Consistent with Post-Op Diagnosis Stent placed in good position. Specimens Urine Right Renal pelvis Right ureteral stone fragments Drains 6 Fr Multilength Anesthesia Type MAC Complications none Disposition Disposition: Recovery Room Indications Patient with obstruction. Risks and benefits discussed at length. Description of Procedure Patient was consented and brought back to the operating room. Patient was placed under anesthesia in the supine position and moved to the dorsal lithotomy position. Patient was prepped and draped in the regular sterile fashion. A time out was completed. A 30degree Cystoscope was placed into the bladder and the entire bladder was examined. The UO's were identified. The UO was cannulized with a catheter, urine was aspirated, and a retrograde pyelogram was completed. A wire was then placed. The stone had to be manipulated to allow wire placement. Part of the stone was extracted in order to allow the wire to advance. This was sent for analysis. With the wire in place, a 6 Fr Double J stent was placed. It was confirmed with fluoroscopy. With the stent in place, the bladder was emptied. The scope was removed. The patient was cleaned, aroused from anesthesia, and transferred to the pacu in stable condition having tolerated the procedure well with no complications. I was present and participated in all aspects of the procedure. The patient will be monitored in the PACU until transferred. I attest to the content of the Intraoperative Record and any orders documented therein. Any exceptions are noted below.
--- NOTE | 2019-05-18 17:21 | Fluoroscopy Report ---
FL retrograde includes kub CLINICAL HISTORY: RT SIDE RETROGRADE COMPARISON STUDY: 05/18/2019 FLUOROSCOPY TIME: 1 minute 28 seconds NUMBER OF FLUOROSCOPIC IMAGES: 2 FINDINGS: Successful right ureteral stent placement IMPRESSION: Successful right ureteral stent placement ACT 112: Negative or not required by law. The above report was generated using voice recognition software. It may contain grammatical, syntax or spelling errors. Electronically signed by: John Brink M.D. 05/18/2019 5:19 PM
--- NOTE | 2019-05-18 17:23 | Electrocardiogram Report ---
Test Reason : Blood Pressure : / mmHG Vent. Rate : 092 BPM Atrial Rate : 092 BPM P-R Int : 168 ms QRS Dur : 086 ms QT Int : 344 ms P-R-T Axes : 032 016 025 degrees QTc Int : 425 ms Normal sinus rhythm Normal ECG When compared with ECG of 08-APR-2015 15:04, No significant change was found Confirmed by Remigio Taylor ([id number]) on 05/18/2019 5:22:50 PM Referred By: REFERRED SELF Confirmed By:Remigio Taylor
--- NOTE | 2019-05-18 17:37 | Anesthesiology Progress Note ---
Date of Service May 18, 2019 Anesthesia Post Procedure Vital Signs Vital Signs: Temp Pulse Pulse Pulse Resp BP BP 05/18/19 17:30 98 H 24 128/65 05/18/19 17:21 37.4 C 98 H 23 113/78 05/18/19 16:34 38.3 C H 100 H 20 162/72 H 05/18/19 14:45 37.2 C 99 H 18 152/84 H 05/18/19 13:45 98 H 20 05/18/19 13:00 97 H 18 170/80 H 05/18/19 11:00 97 H 20 178/70 H 05/18/19 08:43 36.9 C 117 H 20 168/82 H Pulse Ox 05/18/19 17:30 95 05/18/19 17:21 96 05/18/19 16:34 93 05/18/19 14:45 95 05/18/19 13:45 95 05/18/19 13:00 94 05/18/19 11:00 93 05/18/19 08:43 93 Pain Intensity Lower Abdomen: Pain Intensity: 5 Bilateral Lower Back: Pain Intensity: 4 Transfer of Care Handoff Completed per policy Notes Mental Status: alert / awake / arousable and participated in evaluation Nausea / Vomiting: adequately controlled Pain: adequately controlled Airway Patency, RR, SpO2: stable & adequate BP & HR: stable & adequate Hydration State: stable & adequate Anesthetic Complications: no major complications apparent and Pt Satisfied with anesthetic care
[2019-05-18] MEDS: INSULIN ASPART 100 UNITS/ML 3 ML PEN SC SCH ×2 (20:25→22:03)
[2019-05-19] MEDS: ACETAMINOPHEN 325 MG TAB PO PRN ×3 (05:59→19:22)
[2019-05-19] MEDS: metroNIDAZOLE 500 MG/100 ML BAG IV SCH ×3 (05:59→23:14)
[2019-05-19] MEDS: LACTATED RINGER'S 1,000 ML IV SCH ×2 (05:59→18:50)
[2019-05-19 06:40] LABS: Basophils # (auto) 0.03 K/uL (0-0.2); Basophils % (auto) 0.4 %; Eosinophils # (auto) 0.17 K/uL (0-0.5); Eosinophils % (auto) 2.5 %; Hematocrit (blood only) 38.9 % (37-47); Hemoglobin 13.1 g/dL (12.0-16.0); Immature Granulocytes # (auto) 0.03 K/uL (0.00-0.02); Immature Granulocytes % (auto) 0.4 %; Lymphocytes % (auto) 14.5 %; Mean Corpuscular Hgb Conc 33.7 g/dL (32-36); Mean Platelet Volume 9.9 fL (7.4-10.4); Monocytes # (auto) 1.06 K/uL (0.11-0.59); Monocytes % (auto) 15.3 %; Neutrophils # (auto) 4.63 K/uL (1.4-6.5); Neutrophils % (auto) 66.9 %; Platelet Count 128 K/uL (130-400); RDW Coefficient of Variation 12.1 % (11.5-14.5); RDW Standard Deviation 39.2 fL (36.4-46.3); Red Blood Count 4.37 M/uL (4.2-5.4); White Blood Count 6.92 K/uL (4.8-10.8)
[2019-05-19 07:08] LABS: Estimated Average Glucose 235 mg/dl; Hemoglobin A1C 9.8 % (4.5-5.6)
[2019-05-19 07:16] LABS: BUN Creatinine Ratio 11.4 (10-20); Calcium 8.5 mg/dl (8.5-10.1); Creatinine Clr Calc Pharmacy 111.5 ml/min; Est GFR (African American) 110.8; Est GFR (Non-African American) 95.6; Potassium 3.5 mmol/L (3.5-5.1)
--- NOTE | 2019-05-19 08:30 | Anesthesiology Progress Note ---
Date of Service May 19, 2019 Anesthesia Post Procedure Vital Signs Vital Signs: Temp Pulse Pulse Pulse Resp BP BP 05/19/19 07:42 37.4 C 90 128/78 05/19/19 05:55 37.9 C H 05/19/19 03:43 37.8 C H 99 H 16 121/78 05/18/19 23:25 37.7 C H 94 H 16 127/76 05/18/19 21:06 37.4 C 96 H 18 125/74 05/18/19 20:10 37.3 C 85 16 127/80 05/18/19 18:52 37.7 C H 84 20 136/83 05/18/19 18:14 88 16 132/78 05/18/19 17:40 37.5 C 93 H 23 118/75 05/18/19 17:30 98 H 24 128/65 05/18/19 17:21 37.4 C 98 H 23 113/78 05/18/19 16:34 38.3 C H 100 H 20 162/72 H 05/18/19 14:45 37.2 C 99 H 18 152/84 H 05/18/19 13:45 98 H 20 05/18/19 13:00 97 H 18 170/80 H 05/18/19 11:00 97 H 20 178/70 H 05/18/19 08:43 36.9 C 117 H 20 168/82 H Pulse Ox 05/19/19 07:42 91 05/19/19 05:55 05/19/19 03:43 91 05/18/19 23:25 95 05/18/19 21:06 93 05/18/19 20:10 96 05/18/19 18:52 96 05/18/19 18:14 95 05/18/19 17:40 95 05/18/19 17:30 95 05/18/19 17:21 96 05/18/19 16:34 93 05/18/19 14:45 95 05/18/19 13:45 95 05/18/19 13:00 94 05/18/19 11:00 93 05/18/19 08:43 93 Pain Intensity Lower Abdomen: Pain Intensity: 5 Bilateral Lower Back: Pain Intensity: 4 Right Groin: Pain Intensity: 3 Notes Mental Status: alert / awake / arousable and participated in evaluation Patient Amnestic to Procedure: Yes Nausea / Vomiting: adequately controlled Pain: adequately controlled Airway Patency, RR, SpO2: stable & adequate BP & HR: stable & adequate Hydration State: stable & adequate Anesthetic Complications: no major complications apparent and Pt Satisfied with anesthetic care
[2019-05-19] MEDS: INSULIN ASPART 100 UNITS/ML 3 ML PEN SC SCH ×4 (08:56→21:26)
--- NOTE | 2019-05-19 10:38 | Urology Progress Note ---
Date of Service May 19, 2019 Assessment & Plan (1) Right ureteral stone: 53 yo F POD #1 cystoscopy, right stone extraction, and right stent placement with Dr. Aguilera. - UC&S, BCx pending - Continue IV antibiotics per primary team - Clinical course reviewed, all questions answered - Strain all urine - Will arrange outpatient follow-up with our service for definitive stone management. Thank you for allowing us to participate in the acute care of Mrs. Reed. Please reconsult us with additional questions, concerns or changes in patient status. Subjective 53 yo F POD #1 cystoscopy, right stone extraction, and right stent placement with Dr. Aguilera. Awake, sitting up in bed. at bedside. Feeling better today. No abdominal, flank, or suprapubic pain. Tolerating stent. Voiding spontaneously. No dysuria, frequency or urgency. Denies hematuria. Mild nausea, no vomiting. BM this morning, loose. Reports intermittent fever. Temp this morning 37.9. T max 38.3 on 05/17 @ 1630. Chart review: UC&S and BCx pending. Creatinine 0.72, WBC 6.92 Review of Systems Constitutional: as per Subjective / HPI Gastrointestinal: as per Subjective / HPI Genitourinary: as per Subjective / HPI Physical Exam Constitutional: well developed, well nourished and + obese; no acute distress and not ill appearing Respiratory: normal respiratory effort and able to speak in complete sentences; no respiratory distress and no labored breathing Cardiovascular: Extremities: no pedal edema Gastrointestinal (Abdomen): Inspection/Auscultation: abdomen normal to inspection; abdomen not distended Percussion/Palpation: abdomen soft; abdomen nontender and no guarding Neurologic: moves all extremities and awake Psychiatric: A+Ox3, euthymic affect Genitourinary: no CVA tenderness Voiding spontaneously, urine not visualized during exam Results & Data Vital Signs (Past 12 Hours) Vital Signs Temp Pulse Resp BP Pulse Ox 05/19/19 07:42 37.4 C 90 128/78 91 05/19/19 05:55 37.9 C H 05/19/19 03:43 37.8 C H 99 H 16 121/78 91 05/18/19 23:25 37.7 C H 94 H 16 127/76 95 PG Care Time/CCT Total # of Minutes Spent Total Time Spent with Patient: Total time spent is greater than 50% in coordination of care (as documented) at patient's floor/unit and/or counseling patient: Coding Level of Care Code 40883 Subseq Hosp Care Lvl 2 Diagnoses Right ureteral stone N20.1
[2019-05-19] MEDS ORDERED: cefTRIAXone SODIUM 2,000 MG in DEXTROSE 5% 50 ML IV SCH (12:00)
[2019-05-19] MEDS: INSULIN GLARGINE SOLOSTAR 100 UNITS/ML 3 ML PEN SC SCH (13:50)
--- NOTE | 2019-05-19 18:34 | Hospitalist Progress Note ---
Date of Service May 19, 2019 Assessment & Plan (1) Hydronephrosis with urinary obstruction due to ureteral calculus: POD #1 - repeat cysto, stone extraction and right ureteral stent placement by Dr Aguilera. Just had similar procedure at [facility] in the last couple of weeks. Low-grade fevers most of last pm - awaiting blood cx's, remains on rocephin. Follow blood cx's. (2) UTI (urinary tract infection): suspected, but urine cx neg (contamination). [id number], given the fevers, would cont rocephin and she should remain in hospital another 24-hours. follow blood cx's. (3) Hyperlipidemia: resume statin at d/c (4) Type 2 diabetes mellitus: uncontrolled a1c nearly 10% add lantus 15 units daily increase novolog correction likely will need even more lantus than above appreciate DM educator consult (5) Fever: see above (6) GERD (gastroesophageal reflux disease): no issues typically takes H2 francisca at home (7) Morbid obesity with BMI of 40.0-44.9, adult: BMI 42.9 (8) DVT prophylaxis: SCDs ambulation updated Admission and Anticipated Discharge Date Admission Date: May 18, 2019 Anticipated date of discharge: 05/20/19 Subjective had low-grade fevers through the night but this am she states "I feel ok". is willing to take once-daily basal insulin. dx with T2DM about 1 year ago. denies back or flank or abd pain. no vomiting. ate ok at breakfast. Review of Systems Constitutional: + fever Respiratory: no cough and no dyspnea Cardiovascular: no chest pain Gastrointestinal: no abdominal pain, no nausea and no vomiting Physical Exam Constitutional: + morbidly obese; no acute distress and no altered mental status ENMT: external ear and nose normal, oropharynx normal Respiratory: normal respiratory effort, lungs clear to auscultation Cardiovascular: RRR, no murmur, no edema Heart Sounds: normal S1 and normal S2 Vessels: posterior tibial pulses present and dorsalis pedis pulses present; no JVD Gastrointestinal (Abdomen): normal bowel sounds, soft, nontender, no hepatosplenomegaly Psychiatric: A+Ox3, euthymic affect Results & Data ([facility]) Vital Signs (Past 12 Hours) Vital Signs Temp Pulse Pulse Resp BP Pulse Ox 05/19/19 15:23 37.1 C 80 20 114/60 93 05/19/19 15:10 37.4 C 88 90 16 128/78 91 05/19/19 12:38 37.4 C 88 90 16 128/78 91 05/19/19 11:12 37.4 C 88 90 16 128/78 91 05/19/19 07:42 37.4 C 90 128/78 91 Laboratory Results Laboratory Results - last 24 hr 05/19/19 05/19/19 05/19/19 05:57 05:57 05:57 WBC 6.92 RBC 4.37 Hgb 13.1 Hct 38.9 MCV 89.0 MCH 30.0 MCHC 33.7 RDW Std Deviation 39.2 RDW Coeff of Sayda 12.1 Plt Count 128 L MPV 9.9 Immature Gran % (Auto) 0.4 Neut % (Auto) 66.9 Lymph % (Auto) 14.5 [place] % (Auto) 15.3 Eos % (Auto) 2.5 Baso % (Auto) 0.4 Immature Gran # (Auto) 0.03 H Neut # (Auto) 4.63 Lymph # (Auto) 1.00 L [place] # (Auto) 1.06 H Eos # (Auto) 0.17 Baso # (Auto) 0.03 Sodium 136 Potassium 3.5 Chloride 104 Carbon Dioxide 24 Anion Gap 8.0 BUN 8 Creatinine 0.72 Est Cr Clr Drug Dosing 111.5 Est GFR ( Amer) 110.8 Est GFR (Non-Af Amer) 95.6 BUN/Creatinine Ratio 11.4 Glucose 225 H POC Glucose Estimat Average Glucose 235 Hemoglobin A1c 9.8 H Calcium 8.5 05/19/19 05/19/19 05/19/19 06:07 08:22 12:13 WBC RBC Hgb Hct MCV MCH MCHC RDW Std Deviation RDW Coeff of Sayda Plt Count MPV Immature Gran % (Auto) Neut % (Auto) Lymph % (Auto) [place] % (Auto) Eos % (Auto) Baso % (Auto) Immature Gran # (Auto) Neut # (Auto) Lymph # (Auto) [place] # (Auto) Eos # (Auto) Baso # (Auto) Sodium Potassium Chloride Carbon Dioxide Anion Gap BUN Creatinine Est Cr Clr Drug Dosing Est GFR ( Amer) Est GFR (Non-Af Amer) BUN/Creatinine Ratio Glucose POC Glucose 201 H 213 H 219 H Estimat Average Glucose Hemoglobin A1c Calcium 05/19/19 05/19/19 17:14 20:40 WBC RBC Hgb Hct MCV MCH MCHC RDW Std Deviation RDW Coeff of Sayda Plt Count MPV Immature Gran % (Auto) Neut % (Auto) Lymph % (Auto) [place] % (Auto) Eos % (Auto) Baso % (Auto) Immature Gran # (Auto) Neut # (Auto) Lymph # (Auto) [place] # (Auto) Eos # (Auto) Baso # (Auto) Sodium Potassium Chloride Carbon Dioxide Anion Gap BUN Creatinine Est Cr Clr Drug Dosing Est GFR ( Amer) Est GFR (Non-Af Amer) BUN/Creatinine Ratio Glucose POC Glucose 195 H 250 H Estimat Average Glucose Hemoglobin A1c Calcium Diagnostic Findings blood cx's neg to date urine cx - contamination PG Care Time/CCT Total # of Minutes Spent Total Time Spent with Patient: Total time spent is greater than 50% in coordination of care (as documented) at patient's floor/unit and/or counseling patient: Coding Level of Care Code 11653 Subseq Hosp Care Lvl 2 Diagnoses Hydronephrosis with urinary obstruction due to ureteral calculus N13.2 UTI (urinary tract infection) N39.0 Hyperlipidemia E78.5 Type 2 diabetes mellitus E11.9 Fever R50.9 GERD (gastroesophageal reflux disease) K21.9 Morbid obesity with BMI of 40.0-44.9, adult E66.01; Z68.41 DVT prophylaxis Z29.9
[2019-05-20] MEDS: metroNIDAZOLE 500 MG/100 ML BAG IV SCH (06:25)
[2019-05-20 07:15] LABS: Hematocrit (blood only) 39.6 % (37-47); Hemoglobin 13.2 g/dL (12.0-16.0); Mean Corpuscular Hemoglobin 29.9 pg (25-34); Mean Corpuscular Hgb Conc 33.3 g/dL (32-36); Mean Corpuscular Volume 89.8 fL (80-100); Mean Platelet Volume 9.6 fL (7.4-10.4); Platelet Count 155 K/uL (130-400); RDW Coefficient of Variation 12.3 % (11.5-14.5); RDW Standard Deviation 40.2 fL (36.4-46.3); Red Blood Count 4.41 M/uL (4.2-5.4); White Blood Count 4.25 K/uL (4.8-10.8)
[2019-05-20 07:45] LABS: BUN Creatinine Ratio 10.9 (10-20); Calcium 8.4 mg/dl (8.5-10.1); Creatinine Clr Calc Pharmacy 107.1 ml/min; Est GFR (African American) 105.5; Potassium 3.5 mmol/L (3.5-5.1)
[2019-05-20] MEDS: INSULIN ASPART 100 UNITS/ML 3 ML PEN SC SCH (08:48)
[2019-05-20] MEDS: INSULIN GLARGINE SOLOSTAR 100 UNITS/ML 3 ML PEN SC SCH (08:49)
[2019-05-20] MEDS ORDERED: INSULIN GLARGINE SOLOSTAR 100 UNITS/ML 3 ML PEN SC SCH (09:00)
[2019-05-20] MEDS ORDERED: cephALEXin 500 MG CAP PO SCH (09:00)
--- NOTE | 2019-05-20 10:55 | Discharge Summary ---
Date of Service date of admission - May 18, 2019 date of discharge - May 20, 2019 Admission HPI Per Admitting Provider 53 y/o F c/o feeling unwell. Pt states that she had a laser kidney stone removal with stent placement on the right at [facility] on 05/05 for an obstructing stone. She did well with this. She had f/u on 05/10 for stent removal and no issues at that time. On Wednesday, pt started to feel unwell. She started to have pain across her lower back, b/l. It has persistent but is not as intense and is much lower than the pain she had prior with her stone. She has developed nausea without emesis. She has diarrhea. She has crampy abd pain that comes and goes. No dysuria or increased frequency. She states that this feels different than with her stone in April. She is having fevers with this episode. Pt states she has not taken her metformin since Wednesday. She was dx with DM 07/2018. She does not check home BS. Pt denies SOB, chest pain, LE pain or swelling. Pt states she feels a bit improved s/p ED interventions, which so far are IVF and pain medications. Abx are ordered but not given yet. Principal Diagnosis obstructing kidney stone on right s/p stent placement Discharge Exam Constitutional + morbidly obese; no acute distress and no altered mental status ENMT external ear and nose normal, oropharynx normal Respiratory normal respiratory effort, lungs clear to auscultation Cardiovascular RRR, no murmur, no edema Heart Sounds: normal S1 and normal S2 Vessels: posterior tibial pulses present and dorsalis pedis pulses present; no JVD Gastrointestinal (Abdomen) normal bowel sounds, soft, nontender, no hepatosplenomegaly Psychiatric A+Ox3, euthymic affect Discharge Data Allergies Allergy/AdvReac Type Severity Reaction Status Date / Time Penicillins Allergy Unknown ? REMEMBER Verified 05/18/19 09:29 codeine AdvReac Migraine Verified 05/18/19 09:29 levofloxacin [From Levaquin] AdvReac Dizziness Verified 05/18/19 09:29 Consultations [facility] Procedures Performed Operation Date: 05/18/19 Actual Procedures p Cystoscopy, Right Stent Placement, Retrograde Pyelogram(Right) - Zack Aguilera DO Ordered Studies 05/18/19 09:15 CT abd pelvis IV con only - IMPRESSION: 1. Obstructing 4 mm calculus in the distal right ureter a few centimeters proximal to the right UVJ with resultant moderate to severe right hydroureteronephrosis. 2. Additional nonobstructing right nephrolithiasis. 3. Postsurgical changes of Yanet-en-Y gastric bypass. No bowel obstruction. 4. The presence of gas in the stomach is nonspecific though can be seen in the setting of a gastrogastric fistula. Argument against the presence of such a fistula is lack of distention of the excluded stomach. Correlate if there has been weight gain. 5. Severe hepatic steatosis. 05/18/19 15:00 FL retrograde includes kub Routine Hospital Course (1) Hydronephrosis with urinary obstruction due to ureteral calculus: CT with 4mm right-sided ureteral stone (or stones). Underwent repeat cysto with stone extraction and right ureteral stent placement by Dr Aguilera. Just had similar procedure at [facility] in the last couple of weeks prior to admission. Post-op had low-grade fevers but blood cultures remained negative while here. Will follow-up with [facility] urology post-discharge for stent management. (2) UTI (urinary tract infection): Suspected, but urine culture x 2 were negative (contamination). Blood cultures were also negative. Kxde-fbu-xsuy, given her fevers, she received rocephin while hospitalized and was transitioned to oral keflex x 5 days at discharge to cover for possible UTI. (3) Hyperlipidemia: statin (4) Type 2 diabetes mellitus: uncontrolled a1c nearly 10% added lantus during this admission was seen by the DM educator will take once-daily lantus post-discharge (5) Fever: see above in "UTI" (6) GERD (gastroesophageal reflux disease): no issues typically takes H2 francisca at home (7) Morbid obesity with BMI of 40.0-44.9, adult: BMI 42.9 Total Time Total Time Spent Total Time Spent (In Minutes): 35 Total Time Includes: Examination of the Patient, Discharge Planning, Medication Reconciliation and Communication With Other Providers Discharge Plan Discharge Items Patient Disposition: Home - Self-Care Reason For Visit: RENAL STONE/UTI Discharge Diagnosis: 1. kidney stone on right with removal of stone by Dr Aguilera and stent placement in the ureter. 2. urinary tract infection - improved. 3. uncontrolled diabetes. Condition on Discharge: Good Activity: As commented below Activity Comment: light activities until seen by urology; avoid heavy exertional activities Non-emergency contact: Primary Care Provider and Urologist Call non-emergency contact if: you have any medication questions, your symptoms worsen, your pain is not controlled, your pain is worsening and you have a fever Follow-up/Referrals: Zack Aguilera DO [Physician] - (see Dr Aguilera this week for stent management ) Ramses Ng PA-C [Primary Care Provider] - (see your family doctor within 1 week for your diabetes ) Diet: Carb Consistent or DM2 Addtl Attending Provider Instructions: You were treated for kidney stone(s) on the right side. Cystoscopy was performed by Dr Aguilera with extraction of the stone(s) and placement of a right-sided stent. There was suspicion of UTI and you received IV antibiotics while here. Your fevers ultimately resolved with treatment of the suspected UTI. You have had uncontrolled diabetes and the tattooer saw you in consult. We have started you on long-acting lantus insulin to take once daily. Recommendations - 1. take cephalexin 500mg twice daily for 5 days; first dose TONIGHT. 2. flomax (tamsulosin) 0.4mg once daily until you see the urologist. 3. oxybutinin 2.5mg every 8 hours as needed for bladder pain/spasm. 4. lantus 20 units once daily every morning. start this TOMORROW on 05/21/19. 5. please check your blood sugars every morning upon awakening and at least 1 other time during the day (before lunch or before dinner or at bedtime). 6. ideal blood sugar upon awakening is 125 or less. 7. if your morning blood sugar is not less than 125 by 05/23/2019 please increase your lantus to 22 units on the AM of 05/23/19. If your blood sugar in the morning is still not less than 125 by the AM of 05/25/19 you can increase the lantus to 24 units. Further increases - defer to your family doctor. Follow-up - see separate section Return to [facility] if - * you have fevers over 100.5 degrees * you have worsening back, flank or abdominal pain * you have worsening blood in the urine * any other concerns Pending Studies at Discharge: Yes Studies:: blood cultures but thus far negative Stand-Alone Forms: [facility], Smoking Cessation Medications and DC Order Prescriptions: New Lantus Solostar U-100 Insulin 100 unit/mL (3 mL) Insulin Pen 20 unit SC QAM Qty: 15 RF: 2 tamsulosin [Flomax] 0.4 mg capsule 0.4 mg PO DAILY Qty: 30 RF: 0 oxybutynin chloride 5 mg tablet 2.5 mg PO Q8H PRN (Reason: bladder spasms/pain) Qty: 20 RF: 0 (DME) lancets [Accu-Chek Fastclix Lancet Drum] Misc See Rx Instructions .ROUTE .MEDSUPPLY Qty: 50 RF: 1 (DME) blood sugar diagnostic [Accu-Chek Guide] Strip See Rx Instructions .ROUTE .MEDSUPPLY Qty: 100 RF: 2 Continued cyclobenzaprine 10 mg tablet 10 mg PO DAILY PRN (Reason: Muscle Spasm) RF: 0 sumatriptan succinate [Imitrex] 50 mg Tablet 50 mg PO DAILY MDD 100 mg PRN (Reason: Migraine Headache) RF: 0 famotidine [Pepcid] 20 mg tablet 20 mg PO BID RF: 0 cyanocobalamin (vitamin B-12) [Vitamin B-12] 500 mcg Tablet 500 mcg PO QDL RF: 0 rosuvastatin [Crestor] 10 mg tablet 10 mg PO HS RF: 0 metformin [Glucophage] 500 mg tablet 500 mg PO BID RF: 0 Discharge Orders: Discharge Order (Routine); Ordered 05/20/19 Ordered By: Paul Pizano/Other Patient Handouts: Diabetes Returned Goods Sorter Complications, Diabetes Resources, Diabetes Type 2 Managing, Diabetes Healthy Meals, Understanding Carbohydrates, Diabetes Exercise Benefits, Kidney Stones Risk, Kidney Stones, Diabetes Living Life, Diabetes Manage A1C Test Admission Data Admit Date/Time: 05/18/19 12:50 Attending Provider: Paul Issa Admit Provider: Chari Santos Primary Care Provider: Ramses Ng Other Providers: Zack Aguilera Other Interventions: Discharge Summary Assessment (RN) Last Done: 05/20/19 11:03 DC Date/Time DO NOT enter until pt leaves facility: 05/20/19 11:35 Coding Level of Care Code D/C Day Management >30 mins Diagnoses Hydronephrosis with urinary obstruction due to ureteral calculus N13.2 UTI (urinary tract infection) N39.0 Hyperlipidemia E78.5 Type 2 diabetes mellitus E11.9 Fever R50.9 GERD (gastroesophageal reflux disease) K21.9 Morbid obesity with BMI of 40.0-44.9, adult E66.01; Z68.41
[2019-05-23 14:49] LABS: Calculus Nidus Not Observed; Component 2 DNR; Source URETER
== END 2019-05-20 11:35 | disposition home or self-care (01) | DRG 660 ==
LOC: ED 08:39 → 3N 12:50 → SUATTDRO 12:50 → 3N 13:56

== ENCOUNTER 2023-04-23 03:18 | Inpatient (IN) ==
[2023-04-23] MEDS: SODIUM CHLORIDE 0.9% 1,000 ML IV ONE (03:38)
--- NOTE | 2023-04-23 03:38 | Emergency Department Note ---
History of Present Illness General Chief complaint: Chest Pain Stated complaint: CHEST PAIN,LOWER BACK PAIN,CAN'T CATCH BREATH Time Seen by Provider: 04/23/23 03:26 History of Present Illness Maximum Pain Intensity: 9 This 57-year-old female presents the ER with spouse for evaluation of chest pain shortness of breath cough and fever and chills for the past 2 days who had a gastric bypass 2 weeks ago at [place]. Patient denies abdominal pain, vomiting, diarrhea, flank pain, problems with the gastric bypass. She states overall she feels well with the gastric bypass. No history of PE or heart disease. She does not smoke. No recent travel. No other concerns per patient. Home Medications Medication Instructions Recorded Confirmed Type cyclobenzaprine 10 mg tablet 10 mg PO DAILY PRN Muscle 05/18/19 12/23/22 History Spasm/migraines sumatriptan succinate 50 mg tablet 50 mg PO DAILY PRN Migraine 05/18/19 12/23/22 History (Imitrex) Headache lancets (Accu-Chek Fastclix Lancet #50 ea 05/20/19 11/29/20 Rx Drum) cyanocobalamin (vitamin B-12) 1,000 mcg IM MONTHLY 12/22/19 12/23/22 History 1,000 mcg/mL injection solution ergocalciferol (vitamin D2) 1,250 50,000 unit PO 2XWK 12/22/19 12/23/22 History mcg (50,000 unit) capsule (Vitamin D2) blood sugar diagnostic (Accu-Chek 02/19/20 11/29/20 History Guide test strips) pen needle, diabetic 32 gauge x 02/19/20 11/29/20 History 5/32" (BD Ultra-Fine Aaliyah Pen Needle) simvastatin 10 mg tablet (Zocor) 10 mg PO QPM 05/02/20 12/23/22 History metformin 500 mg tablet 500 mg PO BID 05/31/22 12/23/22 History ondansetron 4 mg disintegrating 4 mg PO Q6 PRN nausea and vomiting 05/31/22 12/23/22 Rx tablet #14 tabs semaglutide 1 mg/dose (4 mg/3 mL) 1 mg subcut WK 05/31/22 12/23/22 History subcutaneous pen injector (Ozempic) Allergies Allergy/AdvReac Type Severity Reaction Status Date / Time clindamycin Allergy Intermediate Fatigued Verified 12/23/22 13:23 Penicillins Allergy Unknown ? REMEMBER Verified 12/23/22 13:23 codeine AdvReac Severe Migraine Verified 12/23/22 13:23 levofloxacin [From Levaquin] AdvReac Severe Dizziness Verified 12/23/22 13:23 Past Med/Surg History Medical History History of COVID-19 2020 > not hospitalized Seasonal allergies Abdominal pain, LLQ Cervicalgia Constipation Dyslipidemia GERD without esophagitis Hydronephrosis Hyperlipidemia Migraine headache Nephrolithiasis Hx of neck injury as a young child had a bad fall and injured her neck to the point she was unable to move at all for 1 week -> after a home visit of a doctor she has no problems since. Spinal stenosis History of skin cancer all resolved Fatty liver Nausea and vomiting after administration of anesthetic agent Type 2 diabetes mellitus Surgical History History of tooth extraction History of tonsillectomy History of appendectomy History of cholecystectomy Hx of foot operation right tarsal tunnel release History of gastric bypass History of esophagogastroduodenoscopy (EGD) History of colonoscopy S/P epidural steroid injection H/O bladder repair surgery bladder tack x2 S/P laparoscopic hysterectomy with LSO S/P right knee arthroscopy Hx of radical excision of skin lesion History of cystoscopy with stone basketing Status post laser lithotripsy of ureteral calculus Family History Father Myocardial infarction Cancer Uncle Myocardial infarction Heart disease Uncle Myocardial infarction Mother Diabetes Allergies Asthma COPD (chronic obstructive pulmonary disease) Grandmother (Maternal) Diabetes Denies family history of No family history of adverse response to anesthesia Stroke Social History Smoking Status: Never smoker Second Hand Exposure: Yes (parents smoked when pt was child); Do You Dip or Chew Tobacco: No; Hx Alcohol Use: Yes Hx Substance Use: No Preferred Language: Bengali Communication Ability: Effective Supply Tech Required: No Beliefs That Will Affect Care: None marital status: Current Living Situation: Spouse current occupational status: employed 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 How many Children do You have: 2 Feels Safe at Home: Yes Assistive Devices: Glasses Review of Systems A total of 10 systems reviewed and were otherwise negative Physical Exam Vital Signs Vital Signs - 24 hr 04/23/23 03:21 04/23/23 03:42 04/23/23 03:43 Temperature 37.7 C H Temperature Source Temporal Artery Scan Pulse Rate 118 H 110 H 108 H Pulse Rate from SpO2 Sensor 109 H Pulse Rhythm Regular Respiratory Rate 20 22 Respiratory Depth Normal Blood Pressure 171/82 H 185/89 H Blood Pressure Mean 111 121 Blood Pressure Position Sitting Pulse Oximetry 92 93 Oxygen Delivery Method Room Air Room Air Sepsis New/Unexplained Change in Mental Status N/A Sepsis Action Taken by Nursing No Action Required 04/23/23 03:57 04/23/23 03:57 04/23/23 04:01 Temperature Temperature Source Pulse Rate 109 H Pulse Rate from SpO2 Sensor Pulse Rhythm Respiratory Rate 21 Respiratory Depth Blood Pressure 163/71 H Blood Pressure Mean 101 Blood Pressure Position Pulse Oximetry 97 97 94 Oxygen Delivery Method Room Air Room Air Room Air Sepsis New/Unexplained Change in Mental Status Sepsis Action Taken by Nursing VITALS: Vitals are noted on the nurse's note and reviewed by myself. Vital signs stable. GENERAL: Pleasant female, in no acute distress, nondiaphoretic, well-developed well-nourished. SKIN: The skin was without rashes, erythema, edema, or bruising. There is no tenting of the skin. Capillary reflex less than 2 seconds. HEAD: Normocephalic atraumatic. EARS: External auditory canals clear EYES: Pupils equal round and reactive to light and accommodation. Conjunctivae without injection, sclerae without icterus. Extraocular movements intact. NOSE: Patent, no discharge. MOUTH: Mucous membranes moist. Pharynx without erythema or exudate. Uvula midline. Airway patent. Tongue does not deviate. NECK: Supple without nuchal rigidity. No lymphadenopathy. No thyromegaly. Cervical spine is nontender. No JVD. HEART: Regular rate and rhythm LUNGS: Clear to auscultation bilaterally without wheezes, rales or rhonchi. No retractions or accessory muscle use. ABDOMEN: Positive bowel sounds x 4. Normal tympanic percussion. Soft, nontender, without masses or organomegaly. Wheatley sign negative. No guarding or rebound tenderness. No CVA tenderness MUSCULOSKELETAL: No muscle atrophy, erythema, or edema noted. Left calf tender to palpation. NEURO: Patient was alert and oriented to person place and time. Normal sensation to light and sharp touch. No focal neurological deficits. Course Administered Medications Discontinued Medications Azithromycin (Azithromycin 250 Mg Tab) 500 mg PO NOW ONE Stop: 04/23/23 04:37 Last Admin: 04/23/23 04:56 Dose: 500 mg Documented By: BRANDYN Sodium Chloride (Nss) 1,000 mls @ 999 mls/hr IV .Q1H1M ONE Stop: 04/23/23 04:32 Last Infusion: 04/23/23 04:43 Dose: Infused Documented By: Admin: 04/23/23 03:38 Dose: 999 mls/hr Documented By: ROGER Ceftriaxone Sodium (Rocephin) 2,000 mg in 50 mls @ 100 mls/hr IV NOW STA Stop: 04/23/23 05:05 Last Infusion: 04/23/23 05:41 Dose: Infused Documented By: Admin: 04/23/23 04:56 Dose: 100 mls/hr Documented By: BRANDYN Ioversol (Optiray 320 125ml) 125 ml IV ONCE ONE Stop: 04/23/23 03:54 Last Admin: 04/23/23 03:54 Dose: 76 ml Documented By: NATHALY Medical Decision Making Medical Records Attestation: I reviewed the patient's medical records. Home Medications Current Medication List: was personally reviewed by me Laboratory Data Attestation: I reviewed the patient's lab results. 04/23/23 03:37 04/23/23 03:37 Lab Results 04/23/23 04/23/23 Range/Units 03:37 03:44 WBC 15.11 H (4.8-10.8) K/ul RBC 4.26 (4.20-5.40) M/uL Hgb 12.4 (12.0-16.0) g/dl POC Hgb 12.9 (12.0-16.0) g/dl Hct 37.6 (37.0-47.0) % POC Hct 38 (37-47) % MCV 88.3 (80.0-100.0) fL MCH 29.1 (25.0-34.0) pg MCHC 33.0 (32.0-36.0) g/dL RDW Std Deviation 41.5 (36.4-46.3) fL RDW Coeff of Sayda 13.0 (11.5-14.5) % Plt Count 398 (130-400) K/uL MPV 9.0 L (9.4-12.4) fL Immature Gran % (Auto) 0.7 % Neut % (Auto) 74.6 % Lymph % (Auto) 11.8 % [place] % (Auto) 11.5 % Eos % (Auto) 0.8 % Baso % (Auto) 0.6 % Neut # (Auto) 11.26 H (1.40-6.50) K/uL Lymph # (Auto) 1.79 (1.20-3.40) K/uL [place] # (Auto) 1.74 H (0.11-0.59) K/uL Eos # (Auto) 0.12 (0.00-0.50) K/uL Baso # (Auto) 0.09 (0.00-0.20) K/uL Immature Gran # (Auto) 0.11 (0.01-0.20) K/uL PT 11.6 (9.0-12.0) Seconds INR 1.1 (0.9-1.1) APTT 31 (21-31) Seconds PTT Ratio 1.1 POC Sodium 139 (135-144) mmol/L Sodium 138 (136-145) mmol/L POC Potassium 3.7 (3.3-5.0) mmol/L Potassium 3.7 (3.5-5.1) mmol/L POC Chloride 103 (101-112) mmol/L Chloride 103 (98-107) mmol/L Carbon Dioxide 25 (21-32) mmol/L POC Total CO2 24 (24-31) mmol/L Anion Gap 10 (3-11) POC Anion Gap 17.0 (16-25) mmol/L POC BUN 7 (7-18) mg/dl BUN 9 (6-23) mg/dl Creatinine 0.64 (0.6-1.2) mg/dl POC Creatinine 0.6 (0.6-1.3) mg/dl Est Cr Clr Drug Dosing 112.5 ml/min Est GFR ( Amer) 114.8 ml/min Est GFR (Non-Af Amer) 99.1 ml/min BUN/Creatinine Ratio 14.1 (10-20) Glucose 137 H (70-99(Fasting)) mg/dl POC Glucose (other) 145 H (70-99) mg/dl Lactate 1.1 (0.4-2.0) mmol/L Calcium 9.1 (8.6-10.3) mg/dl POC Ioniz Calcium Leslie 1.09 L (1.12-1.32) mmol/l Magnesium 1.9 (1.7-2.4) mg/dl Total Bilirubin 0.7 (0.2-1.0) mg/dl AST 21 (13-39) U/L ALT 28 (7-52) U/L Alkaline Phosphatase 83 (34-104) U/L Troponin I High Sens 4.7 (0-14) pg/ml B-Natriuretic Peptide 29 (0-100) pg/ml Total Protein 7.6 (6.0-8.3) gm/dl Albumin 3.8 (3.4-5.0) gm/dl Globulin 3.8 (2.5-4.0) gm/dl Albumin/Globulin Ratio 1.0 (0.9-2) Lipase 8 L (11-82) U/L SARS-CoV-2 (PCR) NEGATIVE (Negative) Influenza Type A (PCR) Negative (Neg) Influenza Type B (PCR) Negative (Neg) RSV (RT-PCR) Negative (Neg) Imaging Data Attestation: I personally reviewed and interpreted this imaging study as follows: Radiologist's Impression: Chest CTA 04/23/23 03:27 Exam(s): CTA CHEST IV Amt: 76 ML OPTIRAY 320 EXAM: CT Angiography Chest With Intravenous Contrast CLINICAL HISTORY: Reason for exam: Chest Pain, eval for PE, gastric bypass 2 weeks ag. TECHNIQUE: Axial computed tomographic angiography images of the chest with intravenous contrast. CTDI is 27.64 mGy and DLP is 726.63 mGy-cm. Automated exposure control was utilized for the study. A dose lowering technique was utilized adhering to the principles of ALARA. MIP reconstructed images were created and reviewed. COMPARISON: No relevant prior studies available. FINDINGS: Pulmonary arteries: Unremarkable. No pulmonary embolism. Aorta: No acute findings. No thoracic aortic aneurysm. Lungs: Atelectasis in the left lower lobe. No mass. Pleural space: Moderate sized left pleural effusion. No pneumothorax. Heart: Unremarkable. No cardiomegaly. No significant pericardial effusion. No evidence of RV dysfunction. Bones/joints: No acute fracture. No dislocation. Soft tissues: Unremarkable. Lymph nodes: Unremarkable. No enlarged lymph nodes. Upper abdomen: Gastric bypass. There are a few air collections in the far upper abdomen. This seems unusual for 2 weeks following surgery. Appearance of a probable small infarct along the medial aspect of the spleen. IMPRESSION: No evidence of pulmonary emboli. Left pleural effusion. Gastric bypass. There are a few extraluminal areas of air. Consider CT scan of the abdomen and pelvis using water-soluble oral contrast. Electronically signed by: Frederic Snyder MD 04/23/23 04:22 AM [facility] Narrative Prior records/ancillary studies reviewed. Triage Nursing notes reviewed. Additional history obtained from family. The patient's history was concerning for chest pain. Differential diagnosis: Etiologies such as postsurgical complication, infection, cardiac ischemia, aortic dissection, pulmonary embolism, pneumonia, pneumothorax, musculoskeletal, infections, pericarditis, myocarditis, esophageal rupture, gastrointestinal, as well as others were entertained. Physical examination: As above. ER treatment provided: An order was placed for continuous cardiac monitoring. The monitor shows a rate of 60-1 20 with a sinus rhythm per my interpretation. I-STAT was ordered Rocephin and Zithromax for possible pneumonia as patient has a large pleural effusion and is febrile On reassessment the patient felt better. Diagnostic interpretation by me: The electrocardiogram was negative for pathologic change. Ordered for chest pain EKG: Normal sinus, normal intervals, no acute ST-T wave changes. Impression sinus tachycardia rate of 118 independently interpreted by myself I think arrhythmia is unlikely. EKG shows normal sinus rhythm with no interval abnormalities such as QT prolongation or WPW. There are no findings to suggest Brugada syndrome. Cardiac monitoring in the emergency department reveals no tachycardic or bradycardic dysrhythmia. Hypertrophic cardiomyopathy was considered but there are no clear historical elements pointing toward this. EKG is not suggestive. The QRS voltage is not extremely large and there are no suggestive Q waves. The labs Independently Interpreted by myself revealed leukocytosis, negative lactic. Hyperglycemia without DKA Imaging studies: Chest x-ray left-sided pleural effusion per my independent interpretation CT was reviewed and read by radiology above HEART SCORE: Hx: high/mod/low suspicion: 0 ECG: ST depression/nonspecific changes/normal: 0 Age: Greater than 65/45-64/less than 45: 1 Risk factors: (Hypertension, hyperlipidemia, diabetes, coronary disease, tobacco use, cocaine use): 2 Troponin: Greater than 2 times normal limits/1-2 times normal limits/normal: 0 Total: 3 Consultation: A consultation was placed with the hospitalist. The case was discussed and diagnostics were reviewed. The patient was evaluated in the ER for further treatment. Exam and history seem consistent with pneumonia with pleural effusion. Patient had no abdominal pain on exam. The area could be related to recent surgery. Patient started antibiotics for possible bacterial bacterial infection for pneumonia with the pleural effusion. Lactic was negative. White count was 15. Blood cultures are pending. Negative COVID. Patient is agreeable treatment plan of admission. Medicine was consulted case was assessed. She will be admitted to the medical service. No PE. Troponin negative. Nonischemic EKG. By the evaluation outlined above emergent etiologies such as cardiac ischemia, aortic dissection, pulmonary embolism, pneumothorax, pericarditis, myocarditis, gastrointestinal, as well as others were deemed relatively unlikely. The pt informed about the findings as listed above. All questions were answered and pleased with the treatment. The chart was completed utilizing [employer] Speech voice recognition software. Grammatical errors, random word insertions, pronoun errors, and incomplete sentences are an occassional consequence of this system due to software limitations, ambient noise, and hardware issues. Any formal questions or concerns about the content, text, or information contained within the body of this dictation should be directly addressed to the physician human resources executive assistant for clarification. Impression & Plan Chest pain, Pleural effusion on left, PNA (pneumonia) Discharge Plan Visit Data Chief Complaint: Chest Pain Stated Complaint: CHEST PAIN,LOWER BACK PAIN,CAN'T CATCH BREATH ED Provider: John Fitch ED Midlevel Provider: Tanesha Woodson Discharge Problem: Chest pain, Pleural effusion on left, PNA (pneumonia) Patient Disposition: Admitted As Inpatient Condition: Good Forms Stand Alone Forms: [employer] Prescriptions Prescriptions: No Action (DME) Accu-Chek Guide test strips Strip See Rx Instructions .ROUTE .MEDSUPPLY Rx Instructions: As directed - check blood sugars 2-3 times a day; pharmacy - please APRIL - needs brand name. (DME) pen needle, diabetic [BD Ultra-Fine Aaliyah Pen Needle] 32 gauge x 5/32" needle See Rx Instructions .ROUTE .MEDSUPPLY Rx Instructions: Use to inject once a day as directed. simvastatin [Zocor] 10 mg tablet 10 mg PO QPM cyclobenzaprine 10 mg tablet 10 mg PO DAILY PRN (Reason: Muscle Spasm/migraines) sumatriptan succinate [Imitrex] 50 mg Tablet 50 mg PO DAILY MDD 100 mg PRN (Reason: Migraine Headache) (DME) lancets [Accu-Chek Fastclix Lancet Drum] Misc See Rx Instructions .ROUTE .MEDSUPPLY Qty: 50 1RF Rx Instructions: As directed - check blood sugars twice a day cyanocobalamin (vitamin B-12) 1,000 mcg/mL Solution 1,000 mcg IM MONTHLY Patient Comments: due on 12/31/22 ergocalciferol (vitamin D2) [Vitamin D2] 1,250 mcg (50,000 unit) Capsule 50,000 unit PO 2XWK Patient Comments: Tues/Fri ondansetron 4 mg tablet,disintegrating 4 mg PO Q6 PRN (Reason: nausea and vomiting) Qty: 14 0RF metformin 500 mg tablet 500 mg PO BID Ozempic 1 mg/dose (4 mg/3 mL) pen injector 1 mg SUBCUT WK Patient Comments: has not taken for 5 weeks now 12/17/22 > last dose 10/23/22 Referrals Referrals: Ramses Ng, MADONNA [Primary Care Provider] - Discharge Problem: Chest pain Qualifiers: Chest pain type: unspecified Qualified Code(s): R07.9 - Chest pain, unspecified
[2023-04-23] MEDS: OPTIRAY 320 125ml IV ONE (03:54)
[2023-04-23 03:57] LABS: Basophils # (auto) 0.09 K/uL (0.00-0.20); Basophils % (auto) 0.6 %; Eosinophils # (auto) 0.12 K/uL (0.00-0.50); Eosinophils % (auto) 0.8 %; Hematocrit (blood only) 37.6 % (37.0-47.0); Hemoglobin 12.4 g/dl (12.0-16.0); Immature Granulocytes # (auto) 0.11 K/uL (0.01-0.20); Immature Granulocytes % (auto) 0.7 %; Lymphocytes # (auto) 1.79 K/uL (1.20-3.40); Lymphocytes % (auto) 11.8 %; Mean Corpuscular Hemoglobin 29.1 pg (25.0-34.0); Mean Corpuscular Volume 88.3 fL (80.0-100.0); Monocytes # (auto) 1.74 K/uL (0.11-0.59); Monocytes % (auto) 11.5 %; Neutrophils # (auto) 11.26 K/uL (1.40-6.50); Neutrophils % (auto) 74.6 %; Platelet Count 398 K/uL (130-400); RDW Standard Deviation 41.5 fL (36.4-46.3); Red Blood Count 4.26 M/uL (4.20-5.40); White Blood Count 15.11 K/ul (4.8-10.8)
[2023-04-23 03:58] LABS: iSTAT Creatinine 0.6 mg/dl (0.6-1.3); iSTAT Hemoglobin 12.9 g/dl (12.0-16.0); iSTAT Ionized Calcium 1.09 mmol/l (1.12-1.32); iSTAT Potassium 3.7 mmol/L (3.3-5.0)
[2023-04-23 04:13] LABS: Albumin Level 3.8 gm/dl (3.4-5.0); BUN Creatinine Ratio 14.1 (10-20); Bilirubin,Total 0.7 mg/dl (0.2-1.0); Calcium 9.1 mg/dl (8.6-10.3); Creatinine Clr Calc Pharmacy 112.5 ml/min; Est GFR (African American) 114.8 ml/min; Est GFR (Non-African American) 99.1 ml/min; Globulin 3.8 gm/dl (2.5-4.0); Magnesium 1.9 mg/dl (1.7-2.4); Potassium 3.7 mmol/L (3.5-5.1); Total Protein 7.6 gm/dl (6.0-8.3)
[2023-04-23 04:20] LABS: Troponin I High Sensitivity 4.7 pg/ml (0-14)
--- NOTE | 2023-04-23 04:23 | CT Scan Report ---
Exam(s): CTA CHEST IV Amt: 76 ML OPTIRAY 320 EXAM: CT Angiography Chest With Intravenous Contrast CLINICAL HISTORY: Reason for exam: Chest Pain, eval for PE, gastric bypass 2 weeks ag. TECHNIQUE: Axial computed tomographic angiography images of the chest with intravenous contrast. CTDI is 27.64 mGy and DLP is 726.63 mGy-cm. Automated exposure control was utilized for the study. A dose lowering technique was utilized adhering to the principles of ALARA. MIP reconstructed images were created and reviewed. COMPARISON: No relevant prior studies available. FINDINGS: Pulmonary arteries: Unremarkable. No pulmonary embolism. Aorta: No acute findings. No thoracic aortic aneurysm. Lungs: Atelectasis in the left lower lobe. No mass. Pleural space: Moderate sized left pleural effusion. No pneumothorax. Heart: Unremarkable. No cardiomegaly. No significant pericardial effusion. No evidence of RV dysfunction. Bones/joints: No acute fracture. No dislocation. Soft tissues: Unremarkable. Lymph nodes: Unremarkable. No enlarged lymph nodes. Upper abdomen: Gastric bypass. There are a few air collections in the far upper abdomen. This seems unusual for 2 weeks following surgery. Appearance of a probable small infarct along the medial aspect of the spleen. IMPRESSION: No evidence of pulmonary emboli. Left pleural effusion. Gastric bypass. There are a few extraluminal areas of air. Consider CT scan of the abdomen and pelvis using water-soluble oral contrast. Electronically signed by: Frederic Snyder MD 04/23/23 04:22 AM
[2023-04-23 04:30] LABS: Influenza A virus by PCR Negative (Neg); Influenza B virus by PCR Negative (Neg); RSV by PCR Negative (Neg); SARS CoV2 RNA(COVID-19) Ceph NEGATIVE (Negative)
[2023-04-23 04:34] LABS: INR 1.1 (0.9-1.1); Partial Thromboplastin Ratio 1.1; Partial Thromboplastin Time 31 Seconds (21-31); Prothrombin Time 11.6 Seconds (9.0-12.0)
[2023-04-23] MEDS: AZITHROMYCIN 250 MG TAB PO ONE (04:56)
[2023-04-23] MEDS: cefTRIAXone SODIUM 2,000 MG/50 ML BAG IV STA (04:56)
--- NOTE | 2023-04-23 05:25 | History & Physical Report ---
Date of Service April 23, 2023 Assessment & Plan (1) Pleural effusion on left: Plan: 57yo female with history of HLP, DM s/p gastric bypass surgery performed 2 weeks ago presenting with two days of fever, dry cough and chest pain. Elevated WBC at 15. CT of the chest with left sided pleural effusion. Question underlying PNA? Doubt post-operative complication but should be considered given recent history of surgery. -Admit to medical with telemetry -Check procalcitonin -Follow cultures -Continue antibiotics with Ceftriaxone and Azithromycin -Tylenol PRN -Morphine PRN pain (2) Status post gastric surgery: Plan: Patient's surgeon should be notified in the morning - [place] Lillian Porras[place] [facility] Records requested -Continue post-operative diet -Zofran PRN nausea (3) Hyperlipidemia: Plan: Chronic -Continue Simvastatin (4) Type 2 diabetes mellitus: Plan: Seems to have resolved - last A1C=5.8 in 2019 - ISS as needed History of Present Illness Chief Complaint: chest pain and shortness of breath Primary Care Provider: Ramses Ng Promise Reed is a 57yo female with history of DM, HLP and GERD, - had minimally invasive robotic gastric bypass surgery performed two weeks ago at [facility] [place]. Lillian Porras. She reports that the surgery went well with no complications identified. She was discharged home on April 09. She has a followup appointment scheduled for 05/06/23. She has been doing well overall until the last two days when she developed fever, chills, body aches as well as dry cough and anterior/left sided chest discomfort. Her fevers have been as high as 103.8. Denies abdominal pain, nausea, vomiting, diarrhea or constipation. She has been keeping to her post-op diet and vitamins. Steri strips are in place - no bleeding/dehiscence or redness. In the ER she is tachycardic, elevated temperature at 37.7. ER Course: Azithromycin Ceftriaxone NSS Allergies Allergy/AdvReac Type Severity Reaction Status Date / Time clindamycin Allergy Intermediate Fatigued Verified 12/23/22 13:23 Penicillins Allergy Unknown ? REMEMBER Verified 12/23/22 13:23 codeine AdvReac Severe Migraine Verified 12/23/22 13:23 levofloxacin [From Levaquin] AdvReac Severe Dizziness Verified 12/23/22 13:23 Home Medications Medication Instructions Recorded Confirmed Type cyclobenzaprine 10 mg tablet 10 mg PO DAILY PRN Muscle 05/18/19 12/23/22 History Spasm/migraines sumatriptan succinate 50 mg tablet 50 mg PO DAILY PRN Migraine 05/18/19 12/23/22 History (Imitrex) Headache lancets (Accu-Chek Fastclix Lancet #50 ea 05/20/19 11/29/20 Rx Drum) cyanocobalamin (vitamin B-12) 1,000 mcg IM MONTHLY 12/22/19 12/23/22 History 1,000 mcg/mL injection solution ergocalciferol (vitamin D2) 1,250 50,000 unit PO 2XWK 12/22/19 12/23/22 History mcg (50,000 unit) capsule (Vitamin D2) blood sugar diagnostic (Accu-Chek 02/19/20 11/29/20 History Guide test strips) pen needle, diabetic 32 gauge x 02/19/20 11/29/20 History 5/32" (BD Ultra-Fine Aaliyah Pen Needle) simvastatin 10 mg tablet (Zocor) 10 mg PO QPM 05/02/20 12/23/22 History metformin 500 mg tablet 500 mg PO BID 05/31/22 12/23/22 History ondansetron 4 mg disintegrating 4 mg PO Q6 PRN nausea and vomiting 05/31/22 12/23/22 Rx tablet #14 tabs semaglutide 1 mg/dose (4 mg/3 mL) 1 mg subcut WK 05/31/22 12/23/22 History subcutaneous pen injector (Ozempic) Past Med/Surg History Medical History History of COVID-19 2020 > not hospitalized Seasonal allergies Abdominal pain, LLQ Cervicalgia Constipation Dyslipidemia GERD without esophagitis Hydronephrosis Hyperlipidemia Migraine headache Nephrolithiasis Hx of neck injury as a young child had a bad fall and injured her neck to the point she was unable to move at all for 1 week -> after a home visit of a doctor she has no problems since. Spinal stenosis History of skin cancer all resolved Fatty liver Nausea and vomiting after administration of anesthetic agent Type 2 diabetes mellitus Surgical History History of tooth extraction History of tonsillectomy History of appendectomy History of cholecystectomy Hx of foot operation right tarsal tunnel release History of gastric bypass History of esophagogastroduodenoscopy (EGD) History of colonoscopy S/P epidural steroid injection H/O bladder repair surgery bladder tack x2 S/P laparoscopic hysterectomy with LSO S/P right knee arthroscopy Hx of radical excision of skin lesion History of cystoscopy with stone basketing Status post laser lithotripsy of ureteral calculus Family History Father Myocardial infarction Cancer Uncle Myocardial infarction Heart disease Uncle Myocardial infarction Mother Diabetes Allergies Asthma COPD (chronic obstructive pulmonary disease) Grandmother (Maternal) Diabetes Denies family history of No family history of adverse response to anesthesia Stroke Social History Smoking Status: Never smoker Second Hand Exposure: Yes (parents smoked when pt was child); Do You Dip or Chew Tobacco: No; Hx Alcohol Use: Yes Hx Substance Use: No Preferred Language: Hungarian Communication Ability: Effective Cleat Layer Required: No Beliefs That Will Affect Care: None marital status: Current Living Situation: Spouse current occupational status: employed 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 No erythema, bleeding, drainage or dehiscence HEENT: NC/AT, PERRL, EOMI, anicteric sclera, conjunctiva without injection, external ear normal to inspection and nontender, nares patent, moist mucus membranes, dentition intact, no oropharyngeal lesions, neck supple, trachea midline, no LAD, no thyromegaly, no JVD Heart: +S1/S2, regular, tachycardic, no m/r/g Lungs: equal air entry bilaterally, no rales/rhonchi/wheezes, diminished breath sounds in left base Abd: +BS, soft, NT/ND, no masses/organomegaly/ascites Ext: warm, 2+ pulses in UE/LE bilaterally, no clubbing/cyanosis or edema Neuro: nonfocal, patient AA&O x 4, speech intact, no facial droop, moving all extremities on command with equal strength 5/5 Results & Data Results & Data Vital Signs (Past 12 Hours) Vital Signs Temp Pulse Resp BP Pulse Ox O2 Del Method 04/23/23 04:01 109 H 21 163/71 H 94 Room Air 04/23/23 03:57 97 Room Air 04/23/23 03:57 97 Room Air 04/23/23 03:43 108 H 22 185/89 H 93 Room Air 04/23/23 03:42 110 H 04/23/23 03:21 37.7 C H 118 H 20 171/82 H 92 Room Air Laboratory Results Laboratory Results WBC 15.11 K/ul (4.8-10.8) H 04/23/23 03:37 RBC 4.26 M/uL (4.20-5.40) 04/23/23 03:37 Hgb 12.4 g/dl (12.0-16.0) 04/23/23 03:37 POC Hgb 12.9 g/dl (12.0-16.0) 04/23/23 03:44 Hct 37.6 % (37.0-47.0) 04/23/23 03:37 POC Hct 38 % (37-47) 04/23/23 03:44 MCV 88.3 fL (80.0-100.0) 04/23/23 03:37 MCH 29.1 pg (25.0-34.0) 04/23/23 03:37 MCHC 33.0 g/dL (32.0-36.0) 04/23/23 03:37 RDW Std Deviation 41.5 fL (36.4-46.3) 04/23/23 03:37 RDW Coeff of Sayda 13.0 % (11.5-14.5) 04/23/23 03:37 Plt Count 398 K/uL (130-400) 04/23/23 03:37 MPV 9.0 fL (9.4-12.4) L 04/23/23 03:37 Immature Gran % (Auto) 0.7 % 04/23/23 03:37 Neut % (Auto) 74.6 % 04/23/23 03:37 Lymph % (Auto) 11.8 % 04/23/23 03:37 Gaines % (Auto) 11.5 % 04/23/23 03:37 Eos % (Auto) 0.8 % 04/23/23 03:37 Baso % (Auto) 0.6 % 04/23/23 03:37 Neut # (Auto) 11.26 K/uL (1.40-6.50) H 04/23/23 03:37 Lymph # (Auto) 1.79 K/uL (1.20-3.40) 04/23/23 03:37 Gaines # (Auto) 1.74 K/uL (0.11-0.59) H 04/23/23 03:37 Eos # (Auto) 0.12 K/uL (0.00-0.50) 04/23/23 03:37 Baso # (Auto) 0.09 K/uL (0.00-0.20) 04/23/23 03:37 Immature Gran # (Auto) 0.11 K/uL (0.01-0.20) 04/23/23 03:37 PT 11.6 Seconds (9.0-12.0) 04/23/23 03:37 INR 1.1 (0.9-1.1) 04/23/23 03:37 APTT 31 Seconds (21-31) 04/23/23 03:37 PTT Ratio 1.1 04/23/23 03:37 POC Sodium 139 mmol/L (135-144) 04/23/23 03:44 Sodium 138 mmol/L (136-145) 04/23/23 03:37 POC Potassium 3.7 mmol/L (3.3-5.0) 04/23/23 03:44 Potassium 3.7 mmol/L (3.5-5.1) 04/23/23 03:37 POC Chloride 103 mmol/L (101-112) 04/23/23 03:44 Chloride 103 mmol/L (98-107) 04/23/23 03:37 Carbon Dioxide 25 mmol/L (21-32) 04/23/23 03:37 POC Total CO2 24 mmol/L (24-31) 04/23/23 03:44 Anion Gap 10 (3-11) 04/23/23 03:37 POC Anion Gap 17.0 mmol/L (16-25) 04/23/23 03:44 POC BUN 7 mg/dl (7-18) 04/23/23 03:44 BUN 9 mg/dl (6-23) 04/23/23 03:37 Creatinine 0.64 mg/dl (0.6-1.2) 04/23/23 03:37 POC Creatinine 0.6 mg/dl (0.6-1.3) 04/23/23 03:44 Est Cr Clr Drug Dosing 112.5 ml/min 04/23/23 03:37 Est GFR ( Amer) 114.8 ml/min 04/23/23 03:37 Est GFR (Non-Af Amer) 99.1 ml/min 04/23/23 03:37 BUN/Creatinine Ratio 14.1 (10-20) 04/23/23 03:37 Glucose 137 mg/dl (70-99(Fasting)) H 04/23/23 03:37 POC Glucose (other) 145 mg/dl (70-99) H 04/23/23 03:44 Lactate 1.1 mmol/L (0.4-2.0) 04/23/23 03:37 Calcium 9.1 mg/dl (8.6-10.3) 04/23/23 03:37 POC Ioniz Calcium Leslie 1.09 mmol/l (1.12-1.32) L 04/23/23 03:44 Magnesium 1.9 mg/dl (1.7-2.4) 04/23/23 03:37 Total Bilirubin 0.7 mg/dl (0.2-1.0) 04/23/23 03:37 AST 21 U/L (13-39) 04/23/23 03:37 ALT 28 U/L (7-52) 04/23/23 03:37 Alkaline Phosphatase 83 U/L (34-104) 04/23/23 03:37 Troponin I High Sens 4.7 pg/ml (0-14) 04/23/23 03:37 B-Natriuretic Peptide 29 pg/ml (0-100) 04/23/23 03:37 Total Protein 7.6 gm/dl (6.0-8.3) 04/23/23 03:37 Albumin 3.8 gm/dl (3.4-5.0) 04/23/23 03:37 Globulin 3.8 gm/dl (2.5-4.0) 04/23/23 03:37 Albumin/Globulin Ratio 1.0 (0.9-2) 04/23/23 03:37 Lipase 8 U/L (11-82) L 04/23/23 03:37 SARS-CoV-2 (PCR) NEGATIVE (Negative) 04/23/23 03:37 Influenza Type A (PCR) Negative (Neg) 04/23/23 03:37 Influenza Type B (PCR) Negative (Neg) 04/23/23 03:37 RSV (RT-PCR) Negative (Neg) 04/23/23 03:37 Impressions Chest CTA 04/23/23 03:27 Exam(s): CTA CHEST IV Amt: 76 ML OPTIRAY 320 EXAM: CT Angiography Chest With Intravenous Contrast CLINICAL HISTORY: Reason for exam: Chest Pain, eval for PE, gastric bypass 2 weeks ag. TECHNIQUE: Axial computed tomographic angiography images of the chest with intravenous contrast. CTDI is 27.64 mGy and DLP is 726.63 mGy-cm. Automated exposure control was utilized for the study. A dose lowering technique was utilized adhering to the principles of ALARA. MIP reconstructed images were created and reviewed. COMPARISON: No relevant prior studies available. FINDINGS: Pulmonary arteries: Unremarkable. No pulmonary embolism. Aorta: No acute findings. No thoracic aortic aneurysm. Lungs: Atelectasis in the left lower lobe. No mass. Pleural space: Moderate sized left pleural effusion. No pneumothorax. Heart: Unremarkable. No cardiomegaly. No significant pericardial effusion. No evidence of RV dysfunction. Bones/joints: No acute fracture. No dislocation. Soft tissues: Unremarkable. Lymph nodes: Unremarkable. No enlarged lymph nodes. Upper abdomen: Gastric bypass. There are a few air collections in the far upper abdomen. This seems unusual for 2 weeks following surgery. Appearance of a probable small infarct along the medial aspect of the spleen. IMPRESSION: No evidence of pulmonary emboli. Left pleural effusion. Gastric bypass. There are a few extraluminal areas of air. Consider CT scan of the abdomen and pelvis using water-soluble oral contrast. Electronically signed by: Frederic Snyder MD 04/23/23 04:22 AM ECG Additional Comments: EKG with ST at 118bpm, low voltage, KF=234, QRS=80, NSm=444, no acute ischemic changes Code Status & VTE Plan VTE Prophylaxis Plan VTE Prophylaxis will be ordered: Yes PG Care Time/CCT Total # of Minutes Spent Total Time Spent with Patient: Total time spent is greater than 50% in coordination of care (as documented) at patient's floor/unit and/or counseling patient: Coding Level of Care Code 50846 INT INP/OBS CARE 2/55MIN Diagnoses Pleural effusion on left J90 Status post gastric surgery Z98.890 Hyperlipidemia E78.5 Type 2 diabetes mellitus E11.9
[2023-04-23] MEDS ORDERED: MoRPHine SULFATE 4 MG/ML 1 ML CARP\\VIAL IV PRN (06:26)
[2023-04-23] MEDS ORDERED: GLUCOSE 40% GEL 15 GM TUBE PO PRN (06:26)
[2023-04-23] MEDS ORDERED: MoRPHine SULFATE 2 MG/ML CARP IV PRN (06:26)
[2023-04-23] MEDS ORDERED: CARBOHYDRATES FOR HYPOGLYCEMIA PO PRN (06:26)
[2023-04-23] MEDS ORDERED: GLUCOSE 10 TAB/TUBE PO PRN (06:26)
[2023-04-23] MEDS ORDERED: GLUCAGON FOR INJ 1 MG VIAL SQ PRN (06:26)
[2023-04-23] MEDS ORDERED: ONDANSETRON INJ 2 MG/ML 2 ML VIAL IV PRN (06:26)
[2023-04-23] MEDS ORDERED: DEXTROSE 50% 50 ML SYRINGE IV PRN (06:26)
--- NOTE | 2023-04-23 06:53 | XRay Report ---
XR chest 1V portable CLINICAL HISTORY: Chest pain, nonspecific COMPARISON STUDY: Chest CTs May 29, [address] performed earlier today. FINDINGS: Lung volumes are at the lower limits of normal. There is a small left pleural effusion. The re is associated left basilar opacity. No evidence for pulmonary edema. Cardiomediastinal silhouette is unremarkable. IMPRESSION: Small left pleural effusion with left basilar opacity that favors atelectasis. ACT 112: Negative or not required by law. Electronically signed by: Guanaco Ness M.D. 04/23/2023 6:51 AM
[2023-04-23] MEDS: INSULIN ASPART PER UNIT CHARGE SC SCH (07:24)
--- NOTE | 2023-04-23 07:29 | Pulmonary Consultation ---
Date of Consultation April 23, 2023 Assessment & Plan (1) Pleural effusion on left: (2) Chest pain: Chest pain type: unspecified Qualified Code(s): R07.9 - Chest pain, unspecified Plan CT chest 04/23/2023 personally reviewed: Moderate left-sided pleural effusion with compressive atelectasis of the subsegment of the left lower lobe Cardiomegaly No significant mediastinal lymphadenopathy Motion degraded study -- Left-sided pleural effusion with possible left lower lobe pneumonia COVID-19, influenza A/B and RSV negative Procalcitonin 0.14 --Probable ABRAN Plan: Left-sided pleural effusion with low-grade fever Will benefit from thoracentesis. Hold Lovenox IR has been consulted Follow-up nasal MRSA Given the recent abdominal surgery, would recommend CT abdomen pelvis to rule out intra-abdominal process Please note the above document was generated using voice recognition software. It may contain grammatical, syntax or spelling errors.Any formal questions or concerns about the content, text or information contained within the body of this dictation should be directly addressed to the provider for clarification. History of Present Illness Attending Physician: Promise Wells DO History of Present Illness 57-year-old female presented to the hospital because of fever and chills along with left-sided chest discomfort Past medical history: Diabetes, dyslipidemia, GERD Patient had minimally invasive gastric bypass surgery approximately 2 weeks ago, she was discharged on April 09. At the time of examination patient's was in the room She was saturating 98-99% on 2 L nasal cannula. She looked flushed Heart rate was in the 110s. Denied any nausea or or vomiting. Did complain of pleuritic chest pain especially when taking a deep breath. Denies any abdominal pain. No diarrhea. No dysuria. Is having bowel movements No headache, no blurry vision No recent travel history No personal or family history of any autoimmune disease like lupus, sarcoid, Sjogren's, rheumatoid Social history: Lifetime non-smoker. No pets at home Allergies Allergy/AdvReac Type Severity Reaction Status Date / Time clindamycin Allergy Intermediate Fatigued Verified 12/23/22 13:23 Penicillins Allergy Unknown ? REMEMBER Verified 12/23/22 13:23 codeine AdvReac Severe Migraine Verified 12/23/22 13:23 levofloxacin [From Levaquin] AdvReac Severe Dizziness Verified 12/23/22 13:23 Home Medications Medication Instructions Recorded Confirmed Type cyclobenzaprine 10 mg tablet 10 mg PO DAILY PRN Muscle 05/18/19 04/23/23 History Spasm/migraines sumatriptan succinate 50 mg tablet 50 mg PO DAILY PRN Migraine 05/18/19 04/23/23 History (Imitrex) Headache lancets (Accu-Chek Fastclix Lancet #50 ea 05/20/19 11/29/20 Rx Drum) cyanocobalamin (vitamin B-12) 1,000 mcg IM MONTHLY 12/22/19 04/23/23 History 1,000 mcg/mL injection solution ergocalciferol (vitamin D2) 1,250 50,000 unit PO 2XWK 12/22/19 04/23/23 History mcg (50,000 unit) capsule (Vitamin D2) blood sugar diagnostic (Accu-Chek 02/19/20 11/29/20 History Guide test strips) pen needle, diabetic 32 gauge x 02/19/20 11/29/20 History 5/32" (BD Ultra-Fine Aaliyah Pen Needle) simvastatin 10 mg tablet (Zocor) 10 mg PO QPM 05/02/20 04/23/23 History ondansetron 4 mg disintegrating 4 mg PO Q6 PRN nausea and vomiting 05/31/22 04/23/23 Rx tablet #14 tabs metformin 1,000 mg tablet 1,000 mg PO BID 04/23/23 04/23/23 History tirzepatide 5 mg/0.5 mL 5 mg subcut WK 04/23/23 04/23/23 History subcutaneous pen injector (Gallitounjulia) Patient History Medical History History of COVID-19 2020 > not hospitalized Seasonal allergies Abdominal pain, LLQ Cervicalgia Constipation Dyslipidemia GERD without esophagitis Hydronephrosis Hyperlipidemia Migraine headache Nephrolithiasis Hx of neck injury as a young child had a bad fall and injured her neck to the point she was unable to move at all for 1 week -> after a home visit of a doctor she has no problems since. Spinal stenosis History of skin cancer all resolved Fatty liver Nausea and vomiting after administration of anesthetic agent Type 2 diabetes mellitus Surgical History History of tooth extraction History of tonsillectomy History of appendectomy History of cholecystectomy Hx of foot operation right tarsal tunnel release History of gastric bypass History of esophagogastroduodenoscopy (EGD) History of colonoscopy S/P epidural steroid injection H/O bladder repair surgery bladder tack x2 S/P laparoscopic hysterectomy with LSO S/P right knee arthroscopy Hx of radical excision of skin lesion History of cystoscopy with stone basketing Status post laser lithotripsy of ureteral calculus Family History Father Myocardial infarction Cancer Uncle Myocardial infarction Heart disease Uncle Myocardial infarction Mother Diabetes Allergies Asthma COPD (chronic obstructive pulmonary disease) Grandmother (Maternal) Diabetes Denies family history of No family history of adverse response to anesthesia Stroke Social History Smoking Status: Never smoker Second Hand Exposure: Yes (parents smoked when pt was child); Do You Dip or Chew Tobacco: No; Hx Alcohol Use: No Hx Substance Use: No Preferred Language: Sammarinese Communication Ability: Effective Backrest Assembler Required: No Beliefs That Will Affect Care: None marital status: Current Living Situation: Spouse current occupational status: employed 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 How many Children do You have: 2 Feels Safe at Home: Yes Assistive Devices: None Review of Systems 2 Review of Systems: All systems reviewed & are unremarkable except as noted in Subjective Physical Exam 2 Physical Exam: Constitutional: No acute distress, lethargic HEENT: EOMI, PERRLA, flushed Respiratory system: Decreased air entry on the left side, no wheeze, no rhonchi, mild crackles CVS: S1-S2 positive, no murmurs or gallops, tachycardia Abdomen: Soft, nontender, nondistended, positive bowel sounds x4, obese, bandages on the laparoscopic holes appreciated, no redness Extremities: +2 pulses bilaterally radialis/ dorsalis pedis, no cyanosis, no edema Neuro: Awake alert oriented x3 Psych: Normal mood and affect G/U: No Smith Skin: no rashes, warm and dry Lymphatic: no cervical or axillary lymphadenopathy Results & Data Results & Data Vital Signs (Past 12 Hours) Vital Signs Temp Pulse Resp BP Pulse Ox O2 Del Method 04/23/23 07:00 103 H 04/23/23 06:24 Room Air 04/23/23 06:24 36.9 C 04/23/23 05:30 107 H 24 132/95 93 Room Air 04/23/23 05:00 105 H 22 174/89 H 94 Room Air 04/23/23 04:30 101 H 24 151/74 H 96 Room Air 04/23/23 04:01 109 H 21 163/71 H 94 Room Air 04/23/23 03:57 97 Room Air 04/23/23 03:57 97 Room Air 04/23/23 03:43 108 H 22 185/89 H 93 Room Air 04/23/23 03:42 110 H 04/23/23 03:21 37.7 C H 118 H 20 171/82 H 92 Room Air Laboratory Results 04/23/23 03:37 04/23/23 03:37 PG Care Time/CCT Total # of Minutes Spent Total Time Spent with Patient: Total time spent is greater than 50% in coordination of care (as documented) at patient's floor/unit and/or counseling patient: Coding Level of Care Code 83109 INT INP/OBS CARE 3/75MIN Diagnoses Pleural effusion on left J90 Chest pain R07.9 Chest pain type: unspecified
[2023-04-23] MEDS: ENOXAPARIN INJ 40 MG/0.4 ML SYR SQ SCH (07:34)
[2023-04-23 09:23] LABS: Albumin Level 3.5 gm/dl (3.4-5.0); Bilirubin,Total 0.5 mg/dl (0.2-1.0); Total Protein 6.9 gm/dl (6.0-8.3)
[2023-04-23] MEDS: ACETAMINOPHEN 325 MG TAB PO PRN (10:44)
[2023-04-23 11:36] LABS: Appearance Urine Clear (Clear); Bacteria Urine Automated Negative (Negative); Bilirubin Urine Negative (Negative); Blood Urine Trace (Negative); Color Urine Yellow; Epithelial Cell Urine Auto 20-30 /lpf (0-5); Glucose Urine UA Negative (Negative); Ketones Urine 2+ (Negative); Leukocyte Esterase Urine Trace (Negative); Nitrite Urine Negative (Negative); Protein Urine Negative (Negative); Specific Gravity Urine 1.024 (1.000-1.030); Urobilinogen Urine Negative (Negative); pH Urine 6.5 (4.5-7.5)
--- NOTE | 2023-04-23 11:48 | Electrocardiogram Report ---
Test Reason : Blood Pressure : / mmHG Vent. Rate : 118 BPM Atrial Rate : 118 BPM P-R Int : 156 ms QRS Dur : 080 ms QT Int : 312 ms P-R-T Axes : 029 011 027 degrees QTc Int : 437 ms Sinus tachycardia Low voltage QRS Borderline ECG When compared with ECG of 29-MAY-2022 14:10, No significant change was found Confirmed by Mesfin Pino ([id number]) on 04/23/2023 11:47:54 AM Referred By: REFERRED SELF Confirmed By:Mesfin Pino
--- OUTSIDE RECORDS SUMMARY | 2023-04-23 13:29 | External Medical Summary | Continuity of Care Document ---
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 Gastric bypass status for obesity(Discharge Diagnosis) - 04/07/23 Obesity(Discharge Diagnosis) - 04/07/23 GERD (gastroesophageal reflux disease)(Discharge Diagnosis) - 04/07/23 Hyperlipidemia(Discharge Diagnosis) - 04/07/23 Discharge Disposition: Home or Self Care Attending Physician: MD Vern, Michelle Pierre Admitting Physician: MD Abelardo, Dorina Woodall Allergies, Adverse Reactions, Alerts Substance Reaction Severity Status codeine migraine trigger Active clindamycin Abdominal pain Diarrhea Active penicillin rash Active Levaquin memory loss Vomiting Vertigo Nausea Active Functional Status 04/09/23 Neurological Symptoms None ADLs Minimal assistance Facial Symmetry Symmetric Gait Unable to assess Swallowing Difficulty None Level of Consciousness Neuro Alert Hallucinations Present None Speech Pattern Clear 04/09/23 History of Fall in Last 3 Months Mendez N o Presence of Secondary Diagnosis Mendez No Use of Ambulatory Aid Mendez None/bedrest /nurse assist IV/Heparin Lock Fall Risk Mendez Yes Gait/Transferring Fall Risk Mendez Normal /bedrest/immobile Mental Status Fall Risk Mendez Oriented t o own ability Mendez Fall Risk Score 20 Mendez Fall Risk No Risk Immunizations Given and Recorded Vaccine Date Status Refusal Reason SARS-CoV-2 (COVID-19) mRNA-1273 vaccine 1 03/04/21 Recorded SARS-CoV-2 (COVID-19) mRNA-1273 vaccine 2 01/29/21 Recorded poliovirus vaccine, inactivated 3 01/25/78 Recorde d diphth/haemophilus/pertuss/tetanus/polio 4 09/20/67 Recorded 1Result Comment: 2022-10-06: Historical information-source unspecified 2Result Comment: 2022-10-06: Historical information-source unspecified 3Result Comment: 2022-10-06: Historical information-source unspecified 4Result Comment: 2022-10-06: Historical information-source unspecified Medications Crestor 10 mg oral tablet Start: 07/13/18 8:28:00 EDT, 1 tab, PO, qhs Start Date: 07/13/18 Status: Ordered cyanocobalamin 1000 mcg/mL injectable solution INJECT 1 ML ONCE A WEEK FOR 4 WEEKS THEN ONCE MONTHLY Start Date: 09/29/19 Status: Ordered cyclobenzaprine 10 mg oral tablet Start: 07/14/22 11:56:00 EDT, 30 each, TAKE 1 TABLET BY MOUTH ONCE DAILY NEEDED Start Date: 07/14/22 Status: Ordered famotidine 40 mg/5 mL oral liquid Start: 12/31/22 13:53:00 EDT, 2.5 mL, PO, bid, Disp# 150 mL, Refills: 4, Pharmacy: [id number] Start Date: 12/31/22 Stop Date: 05/30/23 Status: Ordered Flexeril 10 mg oral tablet Start: 04/07/23 14:32:00 EST, 1 tab, PO, tid, Disp# 15 tab, Refills: 1, PRN: as needed for spasm, Pharm[place] [facility] Start Date: 04/07/23 Status: Ordered gabapentin 300 mg oral capsule Start: 04/07/23 14:33:00 EST, 1 cap, PO, bid, Disp# 6 cap, Refills: 0, Pharmacy: [facility] Start Date: 04/07/23 Status: Ordered HumaLOG Sliding Scale Low Dose Range: SSI, injection, subQ, 04/08/23 16:30:00 EST, 04/08/23 16:30:00 EST, Estimated correction need for patients using total insulin daily dose between 31 and 60 units., 04/07/23 10:55:00 EST Start Date: 04/08/23 Stop Date: 04/08/23 Status: Completed Lovenox 40 mg/0.4 mL injectable solution Start: 04/07/23 14:33:00 EST, 0.4 mL, subQ, q12h, Disp# 11.2 mL, Refills: 0, Pharmacy: [facility] Start Date: 04/07/23 Stop Date: 04/21/23 Status: Ordered metFORMIN 500 mg oral tablet Start: 04/15/22 16:13:00 EST, 2 tab, PO, bid, 1000 mg po BID Start Date: 04/15/22 Status: Ordered Mounjaro Start: 02/02/23 10:31:00 EST, 2.5 mg =, subQ, qSunday Start Date: 02/02/23 Status: Ordered omeprazole 40 mg oral delayed release capsule Start: 12/25/22 16:50:00 EDT, 1 cap, PO, Daily, Disp# 90 cap, Refills: 1, Take on empty stomach 30 minutes before breakfast, Pharmacy: [id number] Start Date: 12/25/22 Stop Date: 06/23/23 Status: Ordered SUMAtriptan Start: 05/04/19 11:01:00 EST, 100 mg =, PO, PRN Start Date: 05/04/19 Status: Ordered Tylenol 500 mg oral tablet Start: 04/07/23 14:33:00 EST, 2 tab, PO, tid, Disp# 50 tab, Refills: 1, PRN: as needed for pain, Pharmacy: [facility] Start Date: 04/07/23 Status: Ordered Vitamin D2 50,000 intl units (1.25 mg) oral capsule See Instructions, 1 cap twice a week, Tuesdays and Start Date: 09/29/19 Status: Ordered Mental Status 04/08/23 Communication Barrier Present No Primary Language French Problem List Condition Confirmation Course Effective Dates Status H ealth Status Informant Extruding suture Confirmed Active Arthrofibrosis of ankle joint Confirmed Active Ankle pain Confirmed Active Foot pain Confirmed Active Facet arthropathy, lumbar Confirmed Active Back pain with radiation Confirmed Active Bacterial pneumonia Confirmed Active Bacteriuria Confirmed Active Constipation Confirmed Active Alternating constipation and diarrhea Confirmed Active Cystocele with prolapse Confirmed Active Cystocele Confirmed Active Diabetes 1 Confirmed 07/2018 Active DJD (degenerative joint disease) Confirmed Active Facial rash 2 Confirmed 03/2021 Active Flank pain Confirmed Active Nondisplaced fracture of right fibula Confirmed Active GERD (gastroesophageal reflux disease) Confirmed Active History of dysplastic nevus Confirmed Active Gastric bypass status for obesity Confirmed Active History of kidney stones Confirmed Active Elevated cholesterol Confirmed Active Hyperlipidemia Confirmed Active 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, 4 Confirmed 09/26/19 Active RHEUMATOID ARTHRITIS Confirmed Active Johnson metatarsalgia Confirmed Active Elevated LFTs Confirmed Active Low back pain Confirmed Active Lumbar radiculopathy, right Confirmed Active 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 Active Migraines Confirmed Active Nephrolithiasis Confirmed Active Right knee pain Confirmed Active Pre-op exam Confirmed Active Plantar fasciitis Confirmed Active Preop examination Confirmed Active Right flank pain Confirmed Active RUQ pain Confirmed Active S/P gastric bypass Confirmed Active Sacroiliitis Confirmed Active Spring ligament tear Confirmed Active Fatty liver Confirmed Active Tarsal tunnel syndrome of right side Confirmed Active Weight disorder Confirmed Active 1Type 2 2upper chest, forehead, chin Urine 40 THOUSAND COLONIES/ML ESCHERICHIA COLI 4>100 THOUSAND COLONIES/ML ESCHERICHIA COLI (MDRO) present in urine collected 09/26/2019 Diagnosis Diagnosis Type Effective Dates Health Status Clinical Service Informant Obesity Discharge Diagnosis 04/07/23 Non-Specified Gastric bypass status for obesity Discharge Diagnosis 04/07/23 Hyperlipidemia Discharge Diagnosis 04/07/23 GERD (gastroesophageal reflux disease) Discharge Diagnosis 04/07/23 Gastrogastric fistula Discharge Diagnosis 04/07/23 Procedures Procedure Date Related Diagnosis Body Site Status Colonoscopy 1 12/23/22 Completed EGD - esophagogastroduodenoscopy 2 12/23/[address] of abdomen and pelvis 3, 4 05/31/[address] of abdomen and pelvis 5, 6 11/29/20 Completed Colonoscopy 7 12/29/19 Completed Upper GI endoscopy 8 12/29/19 Comp leted Laboratory findings data interpretation 9 11/09/19 Completed Anterior colporrhaphy 10/16/19 Com pleted Cystourethroscopy 10/16/19 Complet ed Uterosacral ligament 10/16/19 Comp leted Kidney stone surgery 05/2019 Comp leted Kidney stone surgery 05/05/19 Comp leted Meniscal repair- right knee 02/2018 Completed Tarsal tunnel release- right foot 2015 Completed Cystotomy 10/19/11 Completed Removal of Lap Band, Convers ion to Gastric bypass 05/20/11 Completed Anterior colporrhaphy 2011 Com pleted Gastric bypass 2011 Completed Bladder Suspension 2009 Comple cece Lap Band AP Standard 12/22/06 Comp leted Appendectomy 1992 Completed Cholecystectomy 1991 Completed Hysterectomy 10 1990 Completed 1The rectum, sigmoid colon, descending colon, splenic flexure, trasverse colon, hepatic flexure, ascending colon, cecum and recto-sigmoid colon are normall. No specimens collected. Repeat in 5 years. 2Normal esophagus. Gastric bypass with normal-sized pouch and intact staple line. Gastrojejunal anastomosis characterized by healthy appearing mucosa, biopsied. Noemal examined duodenum, biopsied. 3body of report s/p joanne, nl pancreas, renal cyst, umbilical hernia, fatty liver 4Impression: 1. No acute abnormalities and in particular no evidence of hydronephrosis or hydroureter in this patient with right-sided flank pain. Nonobstructive stones are seen. 2. Hepatic steatosis. 5Impression: 1. There are no acute infectious or inflammatory findings in the abdomen or pelvis. 2. There are punctate nonobstructing renal calculi. 3. Postoperative change is consistent with previous Yanet-en-Y gastric bypass surgery. No bowel obstruction is seen. 4. Additional findings as above. 6body of report s/p joanne, pancreas atrophy, tiny HH, focal dilatation at distal anastomosis likely from denervation similar to prev CT 02/2020., mild fecal retention, umbilical hernia, 7The entire examined colon is normal. The examined portion of the ileum was normal. No specimens collected. Repeat in 10 years. 8Z-line regular, 36 cm from the incisors. Normal esophagus. Yanet-en-Y gastrojejunostomy with gastrojejunal anastomosis characterized by healthy appearing mucosa. Normal examined duodenum. No specimens collected 9Outside labs 11/06/2019 CMP ALT 60 H, Lipids chol 268 H, Trigs 254 H, T3 and TSH nl, T4 H. HgbA1c 5.9%, CBC WBC 10.9 H, Mg nl, B12 nll, Vit D nl, UA small leukocytes, 1+ bacteria. 10Right ovary remains Results Laboratory List Name Date Glucose Meter (GLUCOSE METER) 2/2/24 Blood Glucose Monitoring Nurse POC (Gluc ose Meter Nurse POC) 24 Glucose Meter (GLUCOSE METER) 2/2/24 Blood Glucose Monitoring Nurse POC (Gluc ose Meter Nurse POC) 04/09/23 Troponin T ( 5th Gen) 04/09/23 Glucose Meter (GLUCOSE METER) 04/08/23 Troponin T ( 5th Gen) 04/08/23 Complete Blood Count 04/08/23 Nephrology Panel 04/08/23 Lactic Acid Level 04/08/23 Blood Glucose Monitoring Nurse POC (Gluc ose Meter Nurse POC) 04/07/23 Most recent to oldest [Reference Range]: 1 2 3 eGFR CKD-EPI [>60 mL/min/1.73 m2] >90 mL/min/1.73 m2 (04/08/23 5:15 PM) Blood Glucose [70-120 mg/dL] 75 mg/dL 1 (04/09/23 11:57 AM) 88 mg/dL 2 (04/09/23 9:25 AM) 116 mg/dL 3 (04/08/23 5:43 PM) Blood Glucose Ref Range [70 - 120 mg/dl] (04/09/23 11:57 AM) [70 - 120 mg/dl] (04/09/23 9:25 AM) [70 - 120 mg/dl] (04/07/23 12:17 PM) Troponin T ( 5th Gen) [<14 ng/L] 14 ng/L 4 *HI* (04/09/23 6:19 AM) 22 ng/L 5 *HI* (04/08/23 10:30 PM) Troponin T ( 5th Gen) Delta NOT CALCULATED (04/09/23 6:19 AM) NOT CALCULATED (04/08/23 10:30 PM) Estimated CrCl 101.80 mL/min (04/08/23 6:01 PM) MPV [9.0-12.2 fL] 9.6 fL (04/08/23 5:15 PM) RDW [11.5-14.2 %] 12.8 % (04/08/23 5:15 PM) Anion Gap [5-14 mmol/L] 9 mmol/L (04/08/23 5:15 PM) Alb [3.5-5.2 g/dL] 3.2 g/dL *LOW* (04/08/23 5:15 PM) BUN [6-23 mg/dL] 7 mg/dL (04/08/23 5:15 PM) Ca [8.4-10.2 mg/dL] 8.9 mg/dL (04/08/23 5:15 PM) Cl- [98-107 mmol/L] 105 mmol/L (04/08/23 5:15 PM) HCO3 [22-29 mmol/L] 27 mmol/L (04/08/23 5:15 PM) Cret [0.60-1.00 mg/dL] 0.71 mg/dL (04/08/23 5:15 PM) Glu [74-109 mg/dL] 135 mg/dL 6 *HI* (04/08/23 5:15 PM) Gluc Meter [74-109 mg/dL] 75 mg/dL (04/09/23 11:54 AM) 88 mg/dL (04/09/23 7:55 AM) 115 mg/dL *HI* (04/08/23 8:55 PM) Hct [35-44 %] 37.0 % (04/08/23 5:15 PM) Hgb [11.7-15.0 g/dL] 12.7 g/dL (04/08/23 5:15 PM) K [3.5-5.1 mmol/L] 3.8 mmol/L (04/08/23 5:15 PM) Lactate [0.5-2.2 mmol/L] 1.0 mmol/L (04/08/23 5:15 PM) MCH [28-33 pg] 29.7 pg (04/08/23 5:15 PM) MCHC [32-36 g/dL] 34.3 g/dL (04/08/23 5:15 PM) MCV [81-96 fL] 86.7 fL (04/08/23 5:15 PM) Na [136-145 mmol/L] 141 mmol/L (04/08/23 5:15 PM) PO4 [2.5-4.5 mg/dL] 1.4 mg/dL *LOW* (04/08/23 5:15 PM) Plts [150-350 K/uL] 154 K/uL (04/08/23 5:15 PM) RBC [3.90-5.00 M/uL] 4.27 M/uL (04/08/23 5:15 PM) WBC [4.0-10.4 K/uL] 13.99 K/uL *HI* (04/08/23 5:15 PM) 1Result Comment: Performed at: [facility], [address] [place] [address] [place] [address] 2Result Comment: Performed at: [address] [place] [address] 3Result Comment: Performed at: [address] [place] [address] 4Result Comment: To use the high-sensitivity cTnT assay, at least 2 blood samples should be drawnat time 0 and then at least 1h later. If the cTnT concentration at time 0 is greater than or equal to 53 ng/L in a patient whose clinicalpresentation is consistent with acute coronary syndrome, then there is a high likelihood that acutemyocardial injury is present. However, confirmation of acute myocardial injury still requires a second cTnT analia drawn. Delta cut-offs for determining the presence of acute myocardial injury have beenvalidated at the 1-hour and 2-hour time points referenced here. A 1-hour delta troponin >5 ng/L indicates acute myocardial injury. A 2h delta troponin >7 ng/L indicates acute myocardial injury. Values below these are consistent with chronic myocardial injury. For patients where there is a high index of suspicion for acute coronary syndrome, repeating the tests at 1 or 2 hours, and calculating a new delta, may be indicated. If the second sample is collected in less than 60 minutes, no delta calculationwill be performed. Deltas for blood samples drawn more than 3 hours apart have not been validated and will not be reported. Please interpret with caution. 5Result Comment: To use the high-sensitivity cTnT assay, at least 2 blood samples should be drawnat time 0 and then at least 1h later. If the cTnT concentration at time 0 is greater than or equal to 53 ng/L in a patient whose clinicalpresentation is consistent with acute coronary syndrome, then there is a high likelihood that acutemyocardial injury is present. However, confirmation of acute myocardial injury still requires a second cTnT analia drawn. Delta cut-offs for determining the presence of acute myocardial injury have beenvalidated at the 1-hour and 2-hour time points referenced here. A 1-hour delta troponin >5 ng/L indicates acute myocardial injury. A 2h delta troponin >7 ng/L indicates acute myocardial injury. Values below these are consistent with chronic myocardial injury. For patients where there is a high index of suspicion for acute coronary syndrome, repeating the tests at 1 or 2 hours, and calculating a new delta, may be indicated. If the second sample is collected in less than 60 minutes, no delta calculationwill be performed. Deltas for blood samples drawn more than 3 hours apart have not been validated and will not be reported. Please interpret with caution. 6Result Comment: ADA recommendation for FASTING Serum/Plasma Glucose: Normal: 70-100 mg/dL Prediabetes: 100-125 mg/dL Diabetes: 126 mg/dL or higher Radiology Reports * Exam Date Time Procedure Performing Provider Status 04/08/23 6:[address] Abdomen w/ + w/o + Pelvis w/ ContrJuli Harris; Final Notes: (CT Abdomen w/ + w/o + Pelvis w/ Contrast) Reason For Exam: tachycardia after bariatric surgery CT Abdomen w/ + w/o + Pelvis w/ Contrast EXAMINATION: CT Abdomen w/ + w/o + Pelvis w/ Contrast, CT Chest - PE CLINICAL HISTORY: bariatric protocol tachycardia after bariatric surgery COMPARISON: CT performed April 07, 2019. TECHNIQUE: CT Abdomen w/ + w/o + Pelvis w/ Contrast, CT Chest - PE CONTRAST: Contrast Type (IV): Omnipaque 350 Contrast Volume (IV) in ml: 100.00 Contrast Type (Oral): Omnipaque 240 Contrast Volume (Oral) in ml: 75.00 DOSE: Total Reported Dose Length Product (DLP) = 2685.26 mGy.cm FINDINGS: Chest This study is of diagnostic quality. Pulmonary vessels: The central, lobar and segmental arteries are free of embolus. The sub-segmentalarteries are variably seen but contain no filling defect to suggest embolus. Pleura and Lungs: There is scattered areas of atelectasis, worst at the lung bases. There are very small left and trace right pleural fluid collections. Central airways: Widely patent. Lymph nodes: There are no pathologically enlarged lymph nodes in the chest. Thyroid and Mediastinum: There is gas and fluid in the esophagus. There are tiny flecks of postoperative gas in the anterior mediastinum. Heart and Great vessels: The heart size is normal. There is no pericardial fluid collection. Abdomen Liver, Gallbladder \\T\\ bile ducts: There is mild diffuse hepatic steatosis. There are no focal lesions, nor is there biliary dilation. The gallbladder is surgically absent. Pancreas: The pancreas is atrophic. Spleen: There is a small wedge-shaped area of low attenuation in the upper medial aspect of the spleen. Adrenals: Normal in appearance. Kidneys, collecting system and ureters: There are small nonobstructing calculi in the lower poles of both kidneys. There is a probable cyst in the upper pole of the right kidney. There is no hydronephrosis. Retroperitoneum, lymph nodes, and vessels: There is no discrete retroperitoneal lymphadenopathy. The abdominal aorta and its major branches are mildly- moderately atherosclerotic. Bowel \\T\\ Mesentery: The patient has very recently undergone a Yanet-en-Y gastric bypass procedure. There is fat stranding and a small amount of fluid at the operative site. However, there is no extraluminal extravasation of oral contrast material to suggest a leak. There is mild distention of largeand small bowel loops in the central abdomen. There is no obstruction. Pelvis Bladder: The bladder is distended. Reproductive organs: No mass. Extraperitoneal, lymph nodes, vessels: No discrete pelvic lymphadenopathy. There is trace free pelvic fluid. Osseous and body wall: There is minimal multilevel disc degeneration of the thoracic and the lumbarspine. There are no concerning osteolytic or osteoblastic lesions. There is a very small umbilical hernia containing fat. IMPRESSION: 1. No pulmonary embolus. 2. Findings in keeping with very recent Yanet-en-Y gastric bypass procedure with a mild postoperative adynamic ileus. 3. No extraluminal extravasation of oral contrast material to suggest a leak. 4. Findings suggestive of an evolving small splenic infarct. [place] Act 112: This study does not meet the requirements of [place] Act 112. Workstation ID: [id number] Final Dictated by:MD Reno Christine M Dictated DT/TM:04/08/2023 6:49 Signed by:MD Reno Christine M Signed (Electronic Signature):04/08/2023 6:48 p * Exam Date Time Procedure Performing Provider Status 04/08/23 6:[address] Chest - PE Juli Figueroa; Final Notes: (CT Chest - PE) Reason For Exam: tachycardia after bariatric surgery CT Chest - PE EXAMINATION: CT Abdomen w/ + w/o + Pelvis w/ Contrast, CT Chest - PE CLINICAL HISTORY: bariatric protocol tachycardia after bariatric surgery COMPARISON: CT performed April 07, 2019. TECHNIQUE: CT Abdomen w/ + w/o + Pelvis w/ Contrast, CT Chest - PE CONTRAST: Contrast Type (IV): Omnipaque 350 Contrast Volume (IV) in ml: 100.00 Contrast Type (Oral): Omnipaque 240 Contrast Volume (Oral) in ml: 75.00 DOSE: Total Reported Dose Length Product (DLP) = 2685.26 mGy.cm FINDINGS: Chest This study is of diagnostic quality. Pulmonary vessels: The central, lobar and segmental arteries are free of embolus. The sub-segmentalarteries are variably seen but contain no filling defect to suggest embolus. Pleura and Lungs: There is scattered areas of atelectasis, worst at the lung bases. There are very small left and trace right pleural fluid collections. Central airways: Widely patent. Lymph nodes: There are no pathologically enlarged lymph nodes in the chest. Thyroid and Mediastinum: There is gas and fluid in the esophagus. There are tiny flecks of postoperative gas in the anterior mediastinum. Heart and Great vessels: The heart size is normal. There is no pericardial fluid collection. Abdomen Liver, Gallbladder \\T\\ bile ducts: There is mild diffuse hepatic steatosis. There are no focal lesions, nor is there biliary dilation. The gallbladder is surgically absent. Pancreas: The pancreas is atrophic. Spleen: There is a small wedge-shaped area of low attenuation in the upper medial aspect of the spleen. Adrenals: Normal in appearance. Kidneys, collecting system and ureters: There are small nonobstructing calculi in the lower poles of both kidneys. There is a probable cyst in the upper pole of the right kidney. There is no hydronephrosis. Retroperitoneum, lymph nodes, and vessels: There is no discrete retroperitoneal lymphadenopathy. The abdominal aorta and its major branches are mildly- moderately atherosclerotic. Bowel \\T\\ Mesentery: The patient has very recently undergone a Yanet-en-Y gastric bypass procedure. There is fat stranding and a small amount of fluid at the operative site. However, there is no extraluminal extravasation of oral contrast material to suggest a leak. There is mild distention of largeand small bowel loops in the central abdomen. There is no obstruction. Pelvis Bladder: The bladder is distended. Reproductive organs: No mass. Extraperitoneal, lymph nodes, vessels: No discrete pelvic lymphadenopathy. There is trace free pelvic fluid. Osseous and body wall: There is minimal multilevel disc degeneration of the thoracic and the lumbarspine. There are no concerning osteolytic or osteoblastic lesions. There is a very small umbilical hernia containing fat. IMPRESSION: 1. No pulmonary embolus. 2. Findings in keeping with very recent Yanet-en-Y gastric bypass procedure with a mild postoperative adynamic ileus. 3. No extraluminal extravasation of oral contrast material to suggest a leak. 4. Findings suggestive of an evolving small splenic infarct. [place] Act 112: This study does not meet the requirements of [place] Act 112. Workstation ID: [id number] Final Dictated by:MD Reno Christine M Dictated DT/TM:04/08/2023 6:49 Signed by:MD Reno Christine M Signed (Electronic Signature):04/08/2023 6:48 p Vital Signs Most recent to oldest [Reference Range]: 1 2 3 Height 162.6 cm (04/07/23 6:21 AM) Patient Weight 102.3 kg (04/07/23 6:21 AM) Body Mass Index 38.69 kg/m2 (04/07/23 6:21 AM) Temperature [36.5-37.9 DegC] 36.6 DegC (04/09/23 11: AM) 36.8 DegC (04/09/23 4:28 AM) 37.2 DegC (04/08/23 11:33 PM) Heart Rate 100 bpm (04/09/23: AM) 94 bpm (04/09/23 4:28 AM) 101 bpm (04/09/23 12:31 AM) Respiratory Rate 18 br/min (04/09/23 11: AM) 18 br/min (04/09/23 4:28 AM) 18 br/min (04/08/23 11:33 PM) Blood Pressure 149/56mmHg (04/09/23 11:27 AM) 130/58mmHg (04/09/23 4:28 AM) 116/61mmHg (04/09/23 12:31 AM) Mean Blood Pressure 75 mmHg (04/09/23 11:27 AM) 73 mmHg (04/09/23 4:28 AM) 74 mmHg (04/09/23 12:31 AM) Cuff Pulse Pressure 93 mmHg (04/09/23 11:27 AM) 72 mmHg (04/09/23 4:28 AM) 55 mmHg (04/09/23 12:31 AM) BP Location # 1 Right Arm (04/09/23 11:27 AM) Right Arm (04/09/23 4:28 AM) Right Arm (04/09/23 12:31 AM) Social History Social History Type Response Smoking Status Never smoked cigaret gregory Sex Female Implantable Device List Procedure Provider Procedure Date Device Type Site Unknown Unknown 04/07/23 Unknown Unknown Device Identifier Serial Number Lot or Batch Number Manufacturing Date Expiration Date Distinct Identification Code MRI Safety Implantable Status Assigning Authority Unknown Unknown [id number] Unknown 07/04/25 Unknown Unknown Active Unknown Unknown Unknown n/a Unknown 11/17/25 Unknown Unknown Active Unkn own Procedure Provider Procedure Date Device Type Site Unknown Unknown 05/05/19 Unknown Unknown Device Identifier Serial Number Lot or Batch Number Manufacturing Date Expiration Date Distinct Identification Code MRI Safety Implantable Status Assigning Authority Unknown Unknown [id number] Unknown Unknown Unknown Unknown Active Unknown Radiology * Contributor_system, [id number]: VERIFY, PERFORM Event Display: EKG Authored Date: [id number] Please click on link to see image. Surgical operation note * MD Vern, Michelle Pierre: PERFORM Event Display: .Operative Report Authored Date: [id number] OPERATIVE REPORT Name: SARAH MARCUS Patient Number: [id number] : 1965 Date of Service: 04/07/2023 SURGEON: Michelle Porras MD REDUCING MACHINE OPERATOR(s): Marleny Zhou MD PREOPERATIVE DIAGNOSIS: Weight recurrence secondary to gastrogastric fistula after gastric bypass; hiatal hernia of pouch. POSTOPERATIVE DIAGNOSIS: Same. OPERATION PERFORMED: Robotic revision of gastrojejunostomy; partial gastrectomy; gastroscopy; hiatal hernia repair with mesh. ANESTHESIA: General endotracheal COMPLICATIONS: None SPECIMEN(S): Gastrojejunostomy; partial gastrectomy. ESTIMATED BLOOD LOSS: 10cc INDICATIONS: This is a nice lady who underwent a laparoscopic gastric bypass by me about ten years ago after adjustable gastric band placement and subsequent removal for dysphagia. 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 Because of an associated enlarged pouch, she was referred back to me for surgical revision. The patient and I agreed she could undergo bypass revision. Informed consents were obtained from the patient prior to her presence in the operating room. FINDINGS: Enlarged gastric pouch with high gastrogastric fistula; otherwise normal post-bypass anatomy. OPERATION: The patient was placed on the operating table in the supine position with pressure points padded. After induction of satisfactory general endotracheal anesthesia, the abdominal wall was prepared with chloraprep solution and draped with sterile sheeting. We created a small transverse incis ion in the left upper quadrant and achieved entry here with an 8mm laparoscope through a 10mm optical trocar. The abdomen was insufflated through this port to a level of 15in Hg with CO2. We then created a small transverse incision in the epigastric area and introduced a 5mm port here in order to make a tract for the Laura liver retractor. The port was removed, and the retractor was placed to retract the left liver lobe. It was held in place with a mechanical arm. We then placed three additional working ports under laparoscopic vision. These were a 12mm robotic port in the right upper quadrant, an 8mm robotic port in the left upper quadrant and another 8mm port in the left flank. We then placed the patient in a reverse Trendelenberg position and examined the upper abdomen. There was adhesion formation between the upper aspect of the pouch and the underside of the left liver lobe. The robot was docked and targeting was accomplished. The previously mentioned adhesions were taken down sharply and we continued lysing adhesions between liver and stomach up to the level of the hiatus using a combination the monopolar cesar. Next we dissected the proximal alimentary limb and the reverse limb. The proximal alimentary limb was then traced back to the jejunojejunostomy, a distance ofabout 115cm. The biliopancreatic limb was traced back to the ligament of Treitz and was found to bein a normal configuration. The common alimentary limb was also traced downward and noted not to be herniated anywhere. The proximal alimentary limb was then transected a few cm distal to the gastrojeunostomy with a white load stapler and the mesentery to the reverse limb was transected with a series of white load staplers with applied Seamguard. We then turned our attention to the bypassed stomach and took epiploic branches starting about 2/[address] the greater curvature and finishing bytaking the short gastric vessels. Completing our dissection up and around to the lateral most aspect of the pouch allowed us to visualize the gastrogastric fistula, which measured about 1cm in diameter. We then administered some ICG in order to visualize the pouch blood supply, and it was briskly green. We undertook to dissected out the lateral pouch from adhesions to the bypassed stomach staple line. Some of this was done bluntly, but we completed the dissection with stapled transection, usinggreen and blue loads. Eventually we were able to circumferentially dissect the distal pouch. We then resected the upper corner of the bypassed stomach with a green and a blue load, hence also taking the associated gastrogastric fistula. The partial gastrectomy specimens was laid aside for later retrieval. At this time we dissected the gastrojejunostomy free from surrounding adhesions and after req uesting the iv administration of ICG by the anesthesia team, stapled the pouch above the gastrojejunostomy but just distal to the visible left gastric artery, transversely with a green followed by a blue load stapler. The resected gastrojejunostomy specimen was then laid aside for later retrieval. Next we turned our attention to the known hiatal hernia. We reopened the pars flaccida and dissectedup the anteromedial border of the right abby with the vessel sealer. A large replaced left hepatic artery was identified and preserved. We carried our dissection over the top of the hiatus and then dissected along the left abby in a similar fashion. Filmy adhesions between esophagus and mediastinumwere lysed. After confirming 3cm of esophageal length in the abdominal cavity, we performed a posterior cruraplasty with a running 2-0 vloc permanent suture.. We then opened the previously closed retroalimentary limb defect in order to free up the proximal alimentary limb and then brought the proximal stapled end of alimentary limb up to lie near the pouch. It was noted to reach there under no tension. We placed a posterior Lembert layer of 3-0 vloc (180 day) using serosa of small bowel to the pouch staple line. After this an enterotomy and a gastrotomy were then made with the monopolar shear. We then placed a running full thickness layer of 3-0 vloc. After this I performed a gastroscopy. The scope was passed through the anastomosis and placed to lie with its tip at a point approximately 6cm distal to the anastomosis. We then continued with an anterior full thickness layer with 3-0 vloc, followed by an anterior Lembert layer with the same suture material. At this time we placed a clamp across the proximal alimentary limb about 10cm distal to the anastomosis. We filled the upper abdomen with saline solution via the suction legal editor. We insufflated and performed an endoscopic leak test. There was no escape of air bubbles into the irrigation fluid and thus this test was negative. The scope was then removed from the body on intermittent suction. At this time the abdominal cavity was inspected and hemostasis was assured. We opted to reinforce the crural repair with a trimmed segment of enform mesh in a reverse "C" configuration. At this time the robot was undocked and we proceeded laparoscopically. First we performed a lap-assisted TAP block with 0.25% marcaine, for a total of 20cc bilaterally (1mg/kg). After this we retrieved the partial gastrectomy specimen followed by the gastrojejunostomy specimen via the right upper quadrant 12mm port site. All specimens were submitted off the field for pathologic examination. The fascia at this site was then closed with a transfascial suture of 0-vicryl deployed with a Virgilio-Ciara suture passer. This wound was copiously irrigated. At this time all other instruments and ports were removed under laparoscopic vision and no bleeding was noted from any site. The skin incisions were closed in a subcuticular fashion with 4-0 PDS. The wounds were cleaned and dried, then dressed with Mastisol and 1/2 inch Steri- strips.The patient tolerated the procedure well. She was awakened and extubated in the room. The sponge, needle andinstrument counts were reported as correct per the nursing staff in the room. Of note, Dr. Porras was present and scrubbed throughout the entire procedure. Dr. Zhou was present and scrubbed as assistant technician for lack of qualified resident help. She participated in all aspects of the procedure except for the gastroscopy, which I performed personally. The patient was awakened and extubated, and taken in satisfactory condition to the recovery area. Electronic Signature on File Electronically Reviewed/Signed by: Michelle Porras MD Author Signature Dt/Tm:04/07/2023 01:08 PM Division of Minimally Invasive Surgery [facility] Discharge instructions * JAVIER Dennison Cheyenne: MODIFY JAVIER Dennison Cheyenne: MODIFY Event Display: Patient Discharge Instructions Authored Date: [id number] SARAH MARCUS :1965 Visit Date:04/07/2023 Patient Discharge Instructions [facility] For medical concerns, call: . Date of Admission:04/07/2023 Date of Discharge:04/09/2023 Physician:MD Porras Ann M Service:Surgery, Minimally Invasive Discharge Disposition: . Advance Directive:None Reason for Hospitalization Gastrogastric fistula Your Diagnoses Gastrogastric fistula Gastric bypass status for obesity Obesity GERD (gastroesophageal reflux disease) Hyperlipidemia [facility] Patient Portal: [facility] makes it easy for you to manage your health information online. [employer] [facility] [employer] is a free service that provides you instant, secure access to your medical information anytime, anywhere. Sign in or set up your account today at [email or web address] Thank you for allowing us to assist you with your healthcare needs. If you need additional community resources, [place] [facility] can help at https://www.[place]211.org. 211 can assist you in connecting with social programs based on your unique needs and locations. 211 is an anonymous search that can help you locate resources for: Food, Housing, Transportation, Goods, Education and Healthcare. Medications Patient is enrolled in Rx-to-Go Program New medications will be delivered from [facility] to patient's room at discharge: Mon-Sun from 9AM-5 PM. Medications MUST be PICKED UP at [facility] if patient is discharged Mon-Sun after 5 PM or anytime on holidays. Please note, the [facility] closes at 8 PM on weekdays and 5:30 PM on Saturdays, Sundays, and holidays. What How Much When Instructions Next Dose New acetaminophen (Tylenol 500 mg oral tablet) 2 tab(s) by mouth 3 times daily as needed for as needed for pain Refills: 1 Pickup at [facility] 04/09 at 10pm New gabapentin (gabapentin 300 mg oral capsule) 1 cap by mouth 2 times daily Pickup at [facility] 04/09 9pm Changed cyclobenzaprine (cyclobenzaprine 10 mg oral tablet) 30 each, TAKE 1 TABLET BY MOUTH ONCE DAILY NEEDED Changed cyclobenzaprine (Flexeril 10 mg oral tablet) 1 tab(s) by mouth 3 times daily as needed for as needed for spasm Pickup at [facility] 04/09 9 pm Changed enoxaparin (Lovenox 40 mg/ 0.4 mL injectable solution) 0.4 Milliliter subcutaneously Every 12 hours Duration: 14 Days Pickup at [facility] 04/09 9pm Unchanged cyanocobalamin (cyanocobalamin 1000 mcg/ mL injectable solution) INJECT 1 ML ONCE A WEEK FOR 4 WEEKS THEN ONCE MONTHLY 04/09 9pm Unchanged ergocalciferol (Vitamin D2 50,000 intl units (1.25 mg) oral capsule) See instructions 1 cap twice a week, Tuesdays and Unchanged famotidine (famotidine 40 mg/ 5 mL oral liquid) 2.5 Milliliter by mouth 2 times daily Duration: 30 Days Unchanged metFORMIN (metFORMIN 500 mg oral tablet) 2 tab(s) by mouth 2 times daily 1000 mg po BID Unchanged omeprazole (omeprazole 40 mg oral delayed release capsule) 1 cap by mouth Once daily Duration: 90 Days Take on empty stomach 30 minutes before breakfast Unchanged rosuvastatin (Crestor 10 mg oral tablet) 1 tab(s) by mouth At bedtime Unchanged SUMAtriptan 100 Milligram by mouth PRN Unchanged tirzepatide (Mounjaro) 2.5 Milligram subcutaneously Every Wednesday Pharmacy Information [facility] [place]: [address] [place] [address] [place] [phone] What How Much When Comments Stop Taking clobetasol topical (clobetasol 0.05% topical ointment) 1 meli topically At bedtime apply a thin film Stop Taking tamsulosin (tamsulosin 0.4 mg oral capsule) 1 cap by mouth Every evening prn Allergies Levaquinmemory loss, Vomiting, Vertigo, Nausea clindamycinAbdominal pain, Diarrhea codeinemigraine trigger penicillinrash What to do next Instructions From Your Doctor Walk as much asyou are able to promote blood flow. If you start to have pain or swelling in one or both of your legs, this could be a sign of a blood clot. Please call the clinic or hospitalimmediately if this happens. Do not drive or operate machinery while taking pain medications that alter your level of consciousness or alertness. Please refer to your Surgical Weight Loss program manual for information regarding your postop dietprogression. However, if you still have questions regarding your diet, please call clinic and askto speak with one of the dieticians. DAILY VOMITING IS NOT NORMAL! If you start to have problems swallowing or keeping things down, this could be a sign of a stricture. Please call the clinic or hospital immediately if you are having difficulty swallowing. You may shower once you are home.You are allowed to get thesurgical tapes/ incisionswet in the shower. DoNOTsoakin a bathtub, swimming pool, hot tub,etc.forat least 2 weeks. DO NOT applyanything to your incisions (such as lotions,ointments, powders, peroxide, cocoa butter, scar cream, etc.) Leave the surgical tapesalone! Theyusuallyfall offin about 2 weeks. If they are still attached after 2 weeks,you cangently peel them off. Suture reaction vs. wound infection Suture reaction: Sometimes, the body reacts to the suture material that we use. This is called a suture reaction. A suture reaction will have redness just around the edges of your incision, butnot spread out across your skin. This is a normal reaction and does not need treatment. Infection: An infection of your incisions usually appears as red, hot, swollen, tender skin around the incision with the redness spreading away from your incision like a sunburn. You may also spike a fever. If you have these symptoms, please call the hospital or clinic immediately. Sleeve Gastrectomy Patients: You will have one incision on one side of your abdomen which is larger than the others. This is where they removed part of your stomach. This incision site can be quitesore for several weeks. Please apply ice packs to this area as needed to ease the pain. DO NOT TAKEaspirin productsor NSAIDs ANYMORE (includingAdvil, Motrin, Aleve, ibuprofen, naproxen, etc.) becausethese medications cancause stomach bleeding. Also avoid any other medications known to irritate the stomach or cause stomach bleeding. Please ask you PCP or pharmacist for guidance. Constipation: Several things can cause constipation after bariatric surgery. Liquid protein drinks can cause constipation. Also, pain medications can make your bowels sluggish. To prevent constipation: Drink plenty of fluids. You will know if you are well-hydrated if your urine is a pale yellow color. Dark, karin-colored urine is a sign of dehydration. If you still become constipated, you can try Miralax liquid or magnesium citrate liquid (both are available over the counter). We do not recommend fiber supplements because they require you to drink too much water. If none of these remedies work, please call the nurse at the [facility] at [phone]. For gastric bypass patients: Please call your family doctor and set up an appointment as soon as possible to review your usual medications. You can no longer take big pills. All of your oral medications must be small pills (smaller than a dime), be able to be crushed, chewed, or in liquid form. Please discuss your options with your family doctor or pharmacist. IF you are diabetic and take medications for diabetes: you will need to work closely with your PCP/route service manager regarding these medications. We do not prescribe/adjust these medications after your surgery. Please call your PCPas soon as possible after your discharge for instructions on how to take your diabetes medications. We usually suggest that you monitor your blood sugars closely (if you haven't done so before) and take medications as directed by your PCP. Multivitamins, calcium, and B12 supplements should be started right away when you get home. Please refer to your manual for instructions. If you have any problems or questions with your supplements, please call the dieticians at the [facility]. Supplements Adult Complete Multivitamin plus minerals: Should contain 400ug folic acid, 2mg Cu, zinc and selenium Choose a complete formula and avoid incomplete childrens formula like gummies, gum, flavor burst varieties (2 pills) 200% of Daily Value Calcium Citrate: Split into 500-600 mg doses: be mindful of serving size on label Do notcombine calcium with iron containing supplements Try to get 50% of calcium from dairy products 1200 mg Vitamin D 3: 3000IU Vitamin B12: to maintain normal levels Daily forms: sublingual, tablet, liquid, spray Alternative: Injection 1000 mcg / month 350-500 mcg or more Post-operative Tests - at 3 months, 6 months, 12 months, then annually Complete Blood Count (CBC) Comprehensive Metabolic Profile Iron profile, ferritin Vitamin B12, Thiamine, Folate, 25-hydroxy Vitamin D Copper, Magnesium, Zinc levels Lipid profile Intact Parathyroid Hormone (PTH) Other Post-operative Tests Bone Density - at 2 years postoperatively, thereafter as indicated by test results Call [phone] immediately with any shortness of breath or chest pain Call [phone] Wednesday through Wednesday between the hours of 7:30 am to 3:30 PM for questions or concerns regarding your surgery. This is the Minimally Invasive surgery office. Please call for fevers over 101; chills, increased abdominal pain, nausea and vomiting. Please callif you notice increasing, spreading redness and pain with drainage at your incision sites. If you have an urgent need nights weekends, or holidays, please call the [facility] at [phone] and ask for the minimally invasive surgery resident optoelectronics engineer to be paged. (pager [phone]). For emergencies, come to the emergency department If you notice the following symptoms Contact our Careline at . If unable to contact your physician and you feel it is an emergency, go to the nearest Emergency Room or call [phone] Diet Instructions Activity Instructions Follow-Up Appointments Scheduled Follow-Up Appointments Date/Time:Provider/Resource: Apr 03:15 AVEL Parisi Anna L Location/Instructions:[facility]s [facility] Gynecology, [address], [address], [place] [id number] Date/Time:Provider/Resource: Apr 08:00 TRACE Gallegos, Isamar Tompkins Location/Instructions:Please arrive 15 minutes prior to your appointment time with [facility], [address] [place] [address], [address], [place] [address] Date/Time:Provider/Resource: Apr 08:00 MD Ford Wayne J Location/Instructions:Please arrive 15 minutes prior to your appointment time with [facility], [address] [place] [address], [address], [place] [address] Date/Time:Provider/Resource: Apr 09:45 Chari Gallego Location/Instructions:[facility] [address] [facility], [address] Date/Time:Provider/Resource: Apr 10:30 MD Mcguire Ann M Location/Instructions:[facility] Surgical [facility] [address] [facility], [address] The Following Services Have Been Arranged for You No Post-Acute Placement(s) Listed No Post-Acute Service(s) Listed Tests Pending None Procedures Performed robotic gastric bypass revision with partial gastrectomy, GJ revi 04/07/2023 Special Instructions Common Emergency Awareness Tips Call 911 immediately if: experiencing any of the warning signs and symptoms of stroke: B.E. F.A.S.T. Balance: is there trouble with walking or coordination Eyes: is there double vision or visual loss Face: Smile, do both sides of face move equally Arm: Raise arms, do both arms move equally Speech: Is speech slurred or inappropriate Time: Time is critical, call 911 immediately Heart Attack Signs Chest discomfort: Most heart attacks involve discomfort in the center of the chest and lasts more than a few minutes, or goes away and comes back. It can feel like uncomfortable pressure, squeezing, fullness or pain. Discomfort in upper body: Symptoms can include pain or discomfort in one or both arms, back, neck, jaw or stomach. Shortness of breath: With or without discomfort. Other signs: Breaking out in a cold sweat, nausea, or lightheaded. Remember, MINUTES DO MATTER. If you experience any of these heart attack warning signs, call to get immediate medical attention! Note * MD Dexter, Karla: MODIFY, PERFORM, MODIFY Event Display: Brief Operative Note Authored Date: [id number] BRIEF OPERATIVE NOTE Name: SARAH MARCUS Patient Number: [id number] : 1965 Date of Service: 04/07/2023 Pre-op Diagnosis: prior gastric bypass complicated by development of gastric- gastric fistula Post-op Diagnosis: same Procedure: robotic revision of gastric bypass with partial gastrectomy and takedown of gastrojejunal anastomosis with revision upper endoscopy Surgeon: Vern Assistants: Abelardo Anesthesia: general Estimated Blood Loss: _ X Less than 50ml Drains: none Fluids: 900 mL Urinary Output: not recorded Condition: stable to PACU Complications: none apparent Specimen: 1) partial gastrectomy 2) gastrojejunal anastomosis Findings: GG fistula resected, GJ revised, negative leak test Check one _ Pharmacologic VTE prophylaxis not indicated X Standard VTE prophylactic regimen ordered _ Pharmacologic VTE prophylaxis contraindicated due to increased risk of intraoperative and / or postoperative bleeding Check one _ No antibiotics indicated X Standard prophylactic antibiotic regimen ordered _ Antibiotic regimen changed due to concern for infection Electronic Signature on File Electronically Reviewed/Signed by: Karla Renteria MD Author Signature Dt/Tm:04/07/2023 11:51 AM Resident Division of General Surgery [place] * MD Renteria Nina: PERFORM Event Display: Brief Operative Note Authored Date: [id number] Additionally, hiatal hernia repair with mesh Electronic Signature on File Electronically Reviewed/Signed by: Karla Renteria MD Author Signature Dt/Tm:04/07/2023 01:28 PM Resident Division of General Surgery [place] Surgical pathology study * Jessie Carbone: EMILY JIMENEZ MD, Xiaobang: VERIFY Event Display: SP Disclaimer Authored Date: [id number] The following statement applies to flow cytometry, immunohistochemical, histochemical, molecular genetics, immunofluorescence, and in situ hybridization assays. These tests were developed and their performance characteristics determined by a [facility] Department of Pathology Laboratory. All controls show appropriate reactivity. Not all tests have been cleared or approved by the U.S. Food and Drug Administration. The FDA has determined that such clearance or approval is not necessary. For decalcified specimen types, focused validation may have been done that may or may not apply to all decalcified specimen types. Results should be interpreted with caution. * Jessie Carbone: EMILY JIMENEZ MD, Xiaobang: VERIFY Event Display: SP Gross Authored Date: [id number] 1. Received fresh, labeled with the patient's name and medical record number, and ``partial gastrectomy is a 6.4 x 4.3 x 2.7 cm irregular portion of stomach with multiple staple lines. The serosais child-pink, smooth, and glistening. No perforations are identified. The lumen contains a moderate amount of red-brown fluid. The gastric wall measures 0.2 cm in thickness and underlies a child-red, focally sloughing mucosa exhibiting the usual rugal folds. No masses or lesions are grossly identified. Medical Affairs Leader sections are submitted. Block summary: 1A-1B: Medical Affairs Leader sections ([facility]) 2. Received fresh, labeled with the patient's name and medical record number, and ``gastrojejunostomy is an 11.2 x 4.6 x 2.9 cm irregular portion of probable bowel with multiple staple lines, embedded juaquin, and sutures. The serosa is child-pink, slightly dusky, with a moderate amount of adhesions. The wall measures 0.2 cm in thickness and underlies red-purple, congested mucosa. No masses or lesions are grossly identified. Medical Affairs Leader sections are submitted. Block Summary: 2A-2B ([facility])_ * MD Ashford Xiaobang: TRANSCRIBE, PERFORM, VERIFY Event Display: SP Dx Authored Date: 1. Stomach, partial gastrectomy: -Portion of stomach with focal mild chronic inflammation. -No Helicobacter pylori organisms seen on H&E stain. 2. Small intestine, gastrojejunostomy, resection: -Segment of small intestine with congestion. Tati Ashford MD (Electronically signed by) Verified: 04/09/2023 15:44 EST Performing Location: [facility] * Jessie Carbone: TRANSCRIBE, EMILY Ashford MD, Xiaobang: VERIFY Event Display: SP Clinical History Authored Date: [id number] Pre-operative diagnosis: Multiple medical conditions due to clinically severe obesity: Gastro-gastric fistula, hiatal hernia_ Post-operative diagnosis: Multiple medical conditions due to clinically severe obesity: Gastro-gastric fistula, hiatal hernia_ Signs and symptoms: _ _ Time out of body: _ Time in fixative: _ Special instructions: _ * MD Ashford Xiaobang: TRANSCRIBE, PERFORM, VERIFY Event Display: SP Micro Authored Date: Microscopic examination performed; see Final Diagnosis. Patient Care team information Care Team Personnel Name: MADONNA Ng Jeremy Daniel Position: Referring Member Role: Primary Care Provider Address: Address: [facility] Name: Karma Gomez Position: HIS Supervisor_P Member Role: HIS Lifetime Care Team Related Persons Name: SAMAN MARCUS Address: [place] Address: [address] [place] [id number] Address: temporary [address] [place] [phone] Name: SAMAN MARCUS Address: home [address] [place] [phone] Address: home [address] [place] [id number]
--- OUTSIDE RECORDS SUMMARY | 2023-04-23 13:30 | External Medical Summary | Continuity of Care Document ---
Author Name Unknown Organization [place] Address [address] [place] [address] Phone [phone] Problems Active Problems Provider Date Gastroesophageal reflux disease Ramses holden PA-C Onset: Hyperlipidemia Ramses Ng PA-C Onset: 0 Mixed hyperlipidemia Ramses Ng PA-C Ons et: 02/24/2017 Other migraine, intractable, without status migrainosus Ramses Ng PA-C Onset: 02/24/2017 Allergic rhinitis due to pollen Ramses holden PA-C Onset: 07/06/2017 Gastro-esophageal reflux dis ease with esophagitis Ramses Ng PA-C Onset: 11/18/2017 Hydronephrosis Ramses Ng PA-C Onset: 0 07/08/2018 Moderate recurrent major depression Ramses Mann PA-C Onset: 07/08/2018 Neoplasm of uncertain behavior of skin Ramses Ng PA-C Onset: 07/08/2018 Type II diabetes mellitus uncontrolled Ramses Ng PA-C Onset: 10/10/2018 History of calculus of kidney On set: Social History Type Date Description Comments Sex Unknown Tobacco Use Reviewed: 04/07/22 Never Smoked Cigarette s Tobacco Use Reviewed: 04/07/22 Never Smoked Cigars Tobacco Use Reviewed: 04/07/22 Never Smoked A Pipe Smoking Status Reviewed: 01/04/23 Never Smoked A Pipe Smokeless Tobacco 04/07/2022 Never Used Smokeless To bacco ETOH Use Rarely consumes alcohol Recreational Drug Use Denies Drug Use Allergies and adverse reactions Active Allergies Criticality Reaction | Severity Comments Date Penicillins Unable to assess criticality 02/24/2017 Levaquin Unable to assess criticality 08/10/2017 Codeine Unable to assess criticality Headache 04/27/2019 Clindamyocin Unable to assess criticality 03/31/2020 Medications Active Medications SIG Qnty Indications Order ing Provider Date Hibftnvoinx073ce Tablets take one tablet by mouth once weekly x 2 weeks 2tabs Millicent Johnston MD 03/12/2023 Loratadine-D 70PS1-822up Tablets ER 12HR one tablet daily as needed for sinus congestion drainage 30tabs Millicent Johnston MD 01/05/2023 Mounjaro2.5mg/0.5ML Solution Pen-Inject once weekly x 4 weeks 2ml Millicent Johnston MD 01/04/2023 Zdyshtnd5ck/0.5ML Solution Pen-Inject inject one pen weekly - start after 2.5mg completed 6ml Millicent Johnston MD 01/04/2023 Metformin [id number] Tablets take 1 tablet by mouth twice daily 180tabs E11.65 Millicent Johnston MD 01/04/2023 Cyclobenzaprine ELG88dg Tablets Take 1 Tablet By Mouth Once Daily as Needed 30tabs Millicent Johnston MD 10/06/2022 Tamsulosin HCL0.4mg Capsules 1 by mouth every evening 30caps Millicent Johnston MD 06/02/2022 Freestyle Lite TestStrips Use to check up to three times daily Dx: E11.9 300units Millicent Johnston MD 04/08/2022 Minocycline OBE963ya Capsules take 1 capsule by mouth everyday at bedtime 90caps Millicent Johnston MD 04/02/2021 BD Pen Needle/Aaliyah/Ultra -Fine/32G X 4mm32G X 4 mm Misc use with insulin as advised Dx; E11.9 100units Millicent Johnston MD 03/31/2021 Vormqqtyuijteq1496hrw/ ML Solution 1ml monthly 3units D51.9 Millicent Johnston MD 02/21/2020 Vitamin D (Ergocalciferol)1.25mg (69391 Ut) Capsules take 2 capsules by mouth once a week 24caps E55.9 Millicent Johnston MD 08/03/2019 Rosuvastatin Saexbss28cq Tablets 1 by mouth every day 90tabs E78.2 Millicent Johnston MD 07/09/2018 Noachbv990wx Tablets 1 tab by mouth as needed migraine onset; can be repeated 2 hours later 9tabs Frederic Mcgee JR, MD Freestyle LancetsMisc check blood sugar up to three times a day Dx E11.65 E11.65 Unknown Freestyle TestStrips use to check sugars up to three times daily Dx E11.65 E11.65 Unknown History Medications Bactrim [id number] Tablets one by mouth twice a day x 14 days 28tabs Millicent Johnston MD 03/12/2023 - 03/26/2023 Medications Administered in Office Medication SIG Qnty Indications Ordering Provider Date Injection Vitamin B-12 Up To 1000 mcgInjection Ramses brown PA-C 04/02/2023 Injection Ketorolac Trometha mine Per 15 mg/.5cc (Toradol)Injection Ramses fatima PA-C 03/12/2023 Injection Vitamin B-12 Up To 1000 mcgInjection Millicent Johnston MD 02/06 Injection Vitamin B-12 Up To 1000 mcgInjection Ramses brown PA-C 02/05/2023 Injection Vitamin B-12 Up To 1000 mcgInjection Ramsesgauri brown PA-C 01/04/2023 Injection Vitamin B-12 Up To 1000 mcgInjection Ramsesgauri brown PA-C 08/13/2022 Injection Vitamin B-12 Up To 1000 mcgInjection Ramsesgauri brown PA-C 07/15/2022 Injection Vitamin B-12 Up To 1000 mcgInjection Millicent Johnston MD 05/07 Injection Vitamin B-12 Up To 1000 mcgInjection Ramses brown PA-C 05/06/2022 Injection Vitamin B-12 Up To 1000 mcgInjection Ramses D. Margarita brown PA-C 04/07/2022 Injection Vitamin B-12 Up To 1000 mcgInjection Ramses D. Margarita brown PA-C 01/28/2022 Injection Vitamin B-12 Up To 1000 mcgInjection Ramses D. Margarita brown PA-C 12/29/2021 Injection Vitamin B-12 Up To 1000 mcgInjection Meme MMary ompson, [employer] OFFICE MECH[employer]IC 12/05/2021 Injection Vitamin B-12 Up To 1000 mcgInjection Meme [facility] ompson, CENTRAL OFFICE MECHANIC 10/27/2021 Injection Vitamin B-12 Up To 1000 mcgInjection Ramses D. Margarita brown PA-C 09/26/2021 Injection Vitamin B-12 Up To 1000 mcgInjection Ramses D. Margarita brown PA-C 08/29/2021 Injection Vitamin B-12 Up To 1000 mcgInjection Millicent Johnston MD 07/07 Injection Vitamin B-12 Up To 1000 mcgInjection Ramses D. Margarita brown PA-C 06/12/2021 Injection Vitamin B-12 Up To 1000 mcgInjection Ramses D. Margarita brown PA-C 05/01/2021 Injection Vitamin B-12 Up To 1000 mcgInjection Ramses D. Margarita brown PA-C 04/03/2021 Injection Vitamin B-12 Up To 1000 mcgInjection Ramses D. Margarita brown PA-C 03/04/2021 Injection Vitamin B-12 Up To 1000 mcgInjection Ramses D. Margarita brown PA-C 01/29/2021 Injection Vitamin B-12 Up To 1000 mcgInjection Lab - [place] 2020 Injection Dexamethasone Sodi um Phosphate, 1 MGInjection Ramses D. MADONNA Ng 12/02/2020 Injection Methylprednisolone Acetate 40 MGInjection Ramses D. MADONNA Ng 12/02/2020 Injection Vitamin B-12 Cyanocobalamin To 1000 mcgInjection Ramses D. Johanna holden PA-C 11/25/2020 Injection Kenalog 10 MG [facility] [id number] Ramses D. Leda moffett PA-C 10/11/2020 Injection Ketorolac Trometha mine Per 15 mg/.5cc (Toradol)Injection Ramses D. Minesh fatima PA-C 10/11/2020 Injection Dexamethasone Sodi um Phosphate, 1 MGInjection Ramses D. MADONNA Ng 10/11/2020 Injection Vitamin B-12 Cyanocobalamin To 1000 mcgInjection Meme smith, C[employer]AL OFFICE MECH[employer]IC 09/26/2020 Injection Vitamin B-12 Cyanocobalamin To 1000 mcgInjection Ramses D. Johanna holden PA-C 08/30/2020 Injection Methylprednisolone Acetate 40 MGInjection Ramses D. MADONNA Ng 07/30/2020 Injection Vitamin B-12 Cyanocobalamin To 1000 mcgInjection Ramses D. Johanna holden PA-C 07/26/2020 Injection Vitamin B-12 Up To 1000 mcgInjection Lab - [place] 2020 Injection Vitamin B-12 Up To 1000 mcgInjection Meme marshall, CENTR[employer] OFFICE MECH[employer]IC 05/02/2020 Injection Vitamin B-12 Up To 1000 mcgInjection Ramses D. Margarita brown PA-C 04/01/2020 Injection Vitamin B-12 Up To 1000 mcgInjection Ramses D. Margarita brown PA-C 03/05/2020 Injection Vitamin B-12 Up To 1000 mcgInjection Ramses D. Margarita brown PA-C 01/30/2020 Injection Dexamethasone Sodi um Phosphate, 1 MGInjection Ramses D. MADONNA Ng 01/15/2020 Injection Vitamin B-12 Up To 1000 mcgInjection Ramses D. Margarita brown PA-C 01/01/2020 Injection Vitamin B-12 Up To 1000 mcgInjection Ramses D. Margarita brown PA-C 12/01/2019 Injection Vitamin B-12 Up To 1000 mcgInjection Ramses D. Margarita brown PA-C 10/30/2019 Injection Vitamin B-12 Up To 1000 mcgInjection Ramses D. CONSUELO JoshuaC 09/28/2019 Injection Vitamin B-12 Up To 1000 mcgInjection Ramses D. Margarita brown PA-C 08/24/2019 Injection Vitamin B-12 Up To 1000 mcgInjection Ramses D. Margarita brown PA-C 08/18/2019 Injection Vitamin B-12 Up To 1000 mcgInjection Ramses brown PA-C 08/11/2019 Injection Ketorolac Trometha mine Per 15 mg/.5cc (Toradol)Injection Ramses fatima PA-C 08/10/2017 Injection Dexamethasone Sodi um Phosphate, 1 MGInjection Ramses Ng PA-C 08/10/2017 Immunizations CPT Code Status Date Vaccine Lot # [id number] Given 12/09/2021 Influenza Virus Vaccine, Quadrivalent (Cciiv4), Derived From Cell [id number] U-FLU Given 12/09/2021 Influenza,Unspecified as1 [id number] 00213 Given 03/04/2021 Moderna Sars-Co v-2 (Cov-19) vacc,100 mcg/ 0.5 mL 12Y+EMR Doc Only [id number] 15863 Given 01/29/2021 Moderna Sars-Co v-2 (Cov-19) vacc,100 mcg/ 0.5 mL 12Y+EMR Doc Only [id number] U-FLU Given 01/13/2021 Influenza,Unspecified 06392 Given 01/13/2021 Influenza Virus Vaccine, Quadrivalent (Cciiv4), Derived From Cell [id number] U-FLU Given 12/11/2019 Influenza,Unspecified 18106 Given 12/11/2019 Influenza Virus Vaccine, Quadrivalent (Cciiv4), Derived From 6 Given 01/09/2019 Influenza Virus Vaccine, Quadrivalent (Cciiv4), Derived From Cell [id number] U-FLU Given 01/09/2019 Influenza,Unspecified U-FLU Given 01/05/2017 Influenza,Unspecified U-FLU Given 03/16/2012 Influenza,Unspecified 44556 Given 04/18/1999 TB Intradermal Test U-POLIO Given 01/25/1978 Polio,Unspecified 98495 Given 01/25/1978 Poliovirus Vaccine, (IPV) 04619 Given 06/16/1972 MMR Vaccine U-DTAP Given 09/20/1967 DTaP,Unspecified 34199 Given 09/20/1967 DEaP-Jvl-LWA (Pentacel) V accine [id number] Refused 09/26/2020 Moderna Sars-Co v-2 (Cov-19) vacc,100 mcg/ 0.5 mL 12Y+EMR Doc Only [id number] Refused 08/03/2019 Pneumococcal Vaccine/Pneu movax 23 [id number] Refused 08/03/2019 Shingrix Vital Signs Date Vital Result Comment 01/04/2023 11:05am BP Systolic 140 mmHg BP Diastolic 88 mmHg BP Systolic Recheck 136 mmHg BP Diastolic Recheck 78 mmHg Body Temperature 97.4 F Heart Rate 87 /min Respiratory Rate 15 /min Weight 240.00 lb Weight 108.864 kg Height 64 inches 5'4" BMI (Body Mass Index) 41.2 kg/m2 O2 % BldC Oximetry 97 % [place] Body Weight 120 lb 04/07/2022 8:18am BP Systolic 142 mmHg BP Diastolic 80 mmHg BP Systolic Recheck 136 mmHg BP Diastolic Recheck 80 mmHg Body Temperature 98.0 F Heart Rate 94 /min Respiratory Rate 16 /min Weight 235.12 lb Weight 106.653 kg Height 64 inches 5'4" BMI (Body Mass Index) 40.4 kg/m2 Ripton Body Weight 120 lb Procedures Date Code Description Status 04/02/2023 J3420 Injection Vitamin B-12 Up To 1000 mcg Completed 04/02/2023 39809 Inj Subcutaneous Or Intramus cular Completed 04/01/2023 [id number] Mammogram Completed 03/12/2023 J1885 Injection Ketoro lac Tromethamine Per 15 mg/.5cc (Toradol) Completed 03/12/2023 34365 Inj Subcutaneous Or Intramus cular Completed 03/04/2023 J3420 Injection Vitamin B-12 Up To 1000 mcg Completed 03/04/2023 85065 Inj Subcutaneous Or Intramus cular Completed 01/04/2023 J3420 Injection Vitamin B-12 Up To 1000 mcg Completed 01/04/2023 77885 Inj Subcutaneous Or Intramus cular Completed 01/04/2023 3079F PVRP Diastolic BP 80-89 MMHG Completed 01/04/2023 3077F PVRP Systolic BP >/= 140 MMH G Completed 01/04/2023 3044F PVRP HGB-A1c <7.0% Completed 12/23/2022 [id number] Colonoscopy Completed Medical Devices Description No Information Available Encounters Type Date Location Provider Dx Diagnosis Office Visit 03/12/2023 10:45a Justus Ng PA-C J32.0 Chronic maxillary sinusitis R51.9 Headache, unspecifie d Office Visit 01/04/2023 11:00a [place] Ramses Ng PA-C I10 Essential (primary) hypertension E78.5 Hyperlipidemia, unsp ecified E11.65 Type 2 diabetes bib itus with hyperglycemia K75.81 Nonalcoholic steatoh epatitis (Rehman) K21.00 Gastro-esophageal re flux dis with esophagitis, without bleed D51.9 Vitamin B12 deficien cy anemia, unspecified Assessments Date Code Description Provider 04/02/2023 D51.9 Vitamin B12 deficiency anemi a, unspecified Ramses Ng PA-C 03/12/2023 J32.0 Chronic maxillary sinusitis Ramses Ng PA-C 03/12/2023 R51.9 Headache, unspecified Ramses Ng PA-C 03/04/2023 D51.9 Vitamin B12 deficiency anemi a, unspecified Millicent Johnston MD 02/05/2023 D51.9 Vitamin B12 deficiency anemi a, unspecified Ramses Ng PA-C 01/04/2023 I10 Essential (primary) hyperten sushma Ramses Ng PA-C 01/04/2023 E78.5 Hyperlipidemia, unspecified Ramses Ng PA-C 01/04/2023 E11.65 Type 2 diabetes mellitus wit h hyperglycemia Ramses Ng PA-C 01/04/2023 K75.81 Nonalcoholic steatohepatitis (Rehman) Ramses Ng PA-C 01/04/2023 K21.00 Gastro-esophagea l reflux disease with esophagitis, without bleeding Ramses Ng PA-C 01/04/2023 D51.9 Vitamin B12 deficiency anemi a, unspecified Ramses Ng PA-C Plan of Treatment Future Appointment(s):* 06/02/2023 11:45 am - Ramses Ng PA-C at [place] * 05/04/2023 9:30 am - Ramses Ng PA-C at [place] 03/12/2023 - Ramses Ng PA-C* J32.0 Chronic maxillary sinusitis* Comments:* Complete antibiotics Tylenol vqvm-ynz-biuaamv as needed Alternate ice and heat * R51.9 Headache, unspecified* Comments:* Toradol given Patient verbalizes understanding of care plan / instructions. * All* New Medication:* Fluconazole 150 mg - take one tablet by mouth once weekly x 2 weeks * Bactrim DS 800-160 mg - one by mouth twice a day x 14 days Functional Status Description No Information Available Mental Status Description No Information Available Referrals Description No Information Available
--- OUTSIDE RECORDS SUMMARY | 2023-04-23 13:30 | External Medical Summary | Continuity of Care Document ---
Author Name Unknown Organization [place] Address [address] [place] [address] Phone [phone] Problems Active Problems Provider Date Gastroesophageal reflux [...] SIG Qnty Indications Order ing Provider Date Edxlsrherkl736kr Tablets take one tablet by mouth once weekly x 2 weeks 2tabs Millicent Johnston MD 03/12/2023 Loratadine-D 87FV9-812go Tablets ER 12HR one tablet daily as needed for sinus congestion drainage 30tabs Millicent Johnston MD 01/05/2023 Mounjaro2.5mg/0.5ML Solution Pen-Inject once weekly x 4 weeks 2ml Millicent Johnston MD 01/04/2023 Hiqcpmvt7dm/0.5ML Solution Pen-Inject inject one pen weekly - start after 2.5mg completed 6ml Millicent Johnston MD 01/04/2023 Metformin GIQ3119av Tablets take 1 tablet by mouth twice daily 180tabs E11.65 Millicent Johnston MD 01/04/2023 Cyclobenzaprine TBJ92cw Tablets Take 1 Tablet By Mouth Once Daily as Needed 30tabs Millicent Johnston MD 10/06/2022 Tamsulosin HCL0.4mg Capsules 1 by mouth every evening 30caps Millicent Johnston MD 06/02/2022 Freestyle Lite TestStrips Use to check up to three times daily Dx: E11.9 300units Millicent Johnston MD 04/08/2022 Minocycline MMT785ie Capsules take 1 capsule by mouth everyday at bedtime 90caps Millicent Johnston MD 04/02/2021 BD Pen Needle/Aaliyah/Ultra -Fine/32G X 4mm32G X 4 mm Misc use with insulin as advised Dx; E11.9 100units Millicent Johnston MD 03/31/2021 Kmxarscuvyhqnk4315exv/ ML Solution 1ml monthly 3units D51.9 Millicent Johnston MD 02/21/2020 Vitamin D (Ergocalciferol)1.25mg (33532 Ut) Capsules take 2 capsules by mouth once a week 24caps E55.9 Millicent Johnston MD 08/03/2019 Rosuvastatin Jylisjf24av Tablets 1 by mouth every day 90tabs E78.2 Millicent Johnston MD 07/09/2018 Nfddsjl122kr Tablets 1 tab by mouth as needed migraine onset; can be repeated 2 hours later 9tabs Frederic Mcgee JR, MD Freestyle LancetsMisc check blood sugar up to three times a day Dx E11.65 E11.65 Unknown Freestyle TestStrips use to check sugars up to three times daily Dx E11.65 E11.65 Unknown History Medications Bactrim [id number] Tablets one by mouth twice a day [...] Up To 1000 mcgInjection Meme MMary ompson, PRINT JOURNALIST 12/05/2021 Injection Vitamin B-12 Up To 1000 mcgInjection Meme [facility] ompson, PRINT JOURNALIST 10/27/2021 Injection Vitamin B-12 Up To 1000 [...] B-12 Up To 1000 mcgInjection Lab - [place] 2020 Injection Dexamethasone Sodi um Phosphate, 1 MGInjection Ramses D. MADONNA Ng 12/02/2020 Injection Methylprednisolone Acetate 40 MGInjection Ramses D. MADONNA Ng 12/02/2020 Injection Vitamin B-12 Cyanocobalamin To 1000 mcgInjection Ramses D. Johanna holden PA-C 11/25/2020 Injection Kenalog [address] [facility] [id number] Rmases D. Leda moffett PA-C 10/11/2020 Injection Ketorolac Trometha mine Per 15 mg/.5cc (Toradol)Injection Ramses D. Minesh fatima PA-C 10/11/2020 Injection Dexamethasone Sodi um Phosphate, 1 MGInjection Ramses D. MADONNA Ng 10/11/2020 Injection Vitamin B-12 Cyanocobalamin To 1000 mcgInjection Meme smith, PRINT JOURNALIST 09/26/2020 Injection Vitamin B-12 Cyanocobalamin To 1000 mcgInjection Ramses D. Johanna holden PA-C 08/30/2020 Injection Methylprednisolone Acetate 40 MGInjection Ramses D. MADONNA Ng 07/30/2020 Injection Vitamin B-12 Cyanocobalamin To 1000 mcgInjection Ramses D. Johanna holden PA-C 07/26/2020 Injection Vitamin B-12 Up To 1000 mcgInjection Lab - [place] 2020 Injection Vitamin B-12 Up To 1000 mcgInjection Meme masrhall, PRINT JOURNALIST 05/02/2020 Injection Vitamin B-12 Up To 1000 [...] CPT Code Status Date Vaccine Lot # 31959 Given 12/09/2021 Influenza Virus Vaccine, Quadrivalent (Cciiv4), Derived From Cell [id number] U-FLU Given 12/09/2021 Influenza,Unspecified as1 [id number] 35608 Given 03/04/2021 Moderna Sars-Co v-2 (Cov-19) vacc,100 mcg/ 0.5 mL 12Y+EMR Doc Only [id number] 68825 Given 01/29/2021 Moderna Sars-Co v-2 (Cov-19) vacc,100 mcg/ 0.5 mL 12Y+EMR Doc Only [id number] U-FLU Given 01/13/2021 Influenza,Unspecified 30621 Given 01/13/2021 Influenza Virus Vaccine, Quadrivalent (Cciiv4), Derived From Cell [id number] U-FLU Given 12/11/2019 Influenza,Unspecified 19656 Given 12/11/2019 Influenza Virus Vaccine, Quadrivalent (Cciiv4), Derived From 4 Given 01/09/2019 Influenza Virus Vaccine, Quadrivalent (Cciiv4), Derived From Cell [id number] U-FLU Given 01/09/2019 Influenza,Unspecified U-FLU Given 01/05/2017 Influenza,Unspecified U-FLU Given 03/16/2012 Influenza,Unspecified 58583 Given 04/18/1999 TB Intradermal Test U-POLIO Given 01/25/1978 Polio,Unspecified 22513 Given 01/25/1978 Poliovirus Vaccine, (IPV) 99343 Given 06/16/1972 MMR Vaccine U-DTAP Given 09/20/1967 DTaP,Unspecified 58160 Given 09/20/1967 HJiN-Rks-RQH (Pentacel) V accine 48898 Refused 09/26/2020 Moderna Sars-Co v-2 (Cov-19) vacc,100 mcg/ 0.5 mL 12Y+EMR Doc Only 64469 Refused 08/03/2019 Pneumococcal Vaccine/Pneu movax 23 [id number] Refused 08/03/2019 Shingrix Vital Signs Date Vital Result Comment 01/04/2023 11:05am BP Systolic 140 mmHg BP Diastolic 88 mmHg BP Systolic Recheck 136 mmHg BP Diastolic Recheck 78 mmHg Body Temperature 97.4 F Heart Rate 87 /min Respiratory Rate 15 /min Weight 240.00 lb Weight 108.864 kg Height 64 inches 5'4" BMI (Body Mass Index) 41.2 kg/m2 O2 % BldC Oximetry 97 % Iva Body Weight 120 lb 04/07/2022 8:18am BP Systolic 142 mmHg BP Diastolic 80 mmHg BP Systolic Recheck 136 mmHg BP Diastolic Recheck 80 mmHg Body Temperature 98.0 F Heart Rate 94 /min Respiratory Rate 16 /min Weight 235.12 lb Weight 106.653 kg Height 64 inches 5'4" BMI (Body Mass Index) 40.4 kg/m2 Iva Body Weight 120 lb Procedures Date Code Description Status 04/02/2023 J3420 Injection Vitamin B-12 Up To 1000 mcg Completed 04/02/2023 55895 Inj Subcutaneous Or Intramus cular Completed 04/01/2023 49099382 Mammogram Completed 03/12/2023 J1885 Injection Ketoro lac Tromethamine Per 15 mg/.5cc (Toradol) Completed 03/12/2023 04973 Inj Subcutaneous Or Intramus cular Completed 03/04/2023 J3420 Injection Vitamin B-12 Up To 1000 mcg Completed 03/04/2023 38346 Inj Subcutaneous Or Intramus cular Completed 01/04/2023 J3420 Injection Vitamin B-12 Up To 1000 mcg Completed 01/04/2023 10831 Inj Subcutaneous Or Intramus cular Completed 01/04/2023 3079F PVRP Diastolic BP 80-89 MMHG Completed 01/04/2023 3077F PVRP Systolic BP >/= 140 MMH G Completed 01/04/2023 3044F PVRP HGB-A1c <7.0% Completed 12/23/2022 [id number] Colonoscopy Completed Medical Devices Description No Information Available Encounters Type Date Location Provider Dx Diagnosis Office Visit 03/12/2023 10:45a Justus Ng PA-C J32.0 Chronic maxillary sinusitis R51.9 Headache, unspecifie d Office Visit 01/04/2023 11:00a [place] Ramses Ng PA-C I10 Essential (primary) hypertension [...] 11:45 am - Ramses Ng PA-C at [place] * 05/04/2023 9:30 am - Ramses Ng PA-C at [place] 03/12/2023 - Ramses Ng PA-C* J32.0 Chronic maxillary sinusitis* Comments:* Complete antibiotics Tylenol ltvo-xip-vaqvunn as needed Alternate ice and heat * [...]
--- NOTE | 2023-04-23 14:16 | Ultrasound Report ---
ULTRASOUND-GUIDED LEFT THORACENTESIS CLINICAL HISTORY: Small left pleural effusion COMPARISON STUDY: CT chest 04/23/2023 PROCEDURE: Procedure and risks were explained. Informed consent was obtained. A final timeout was com pleted. The left posterior thorax was prepped and draped in sterile fashion. 1% buffered lidocaine wa s utilized for skin anesthesia. Utilizing ultrasound guidance, a 5 [place]une[place] safety centesis catheter was advanced into the small left p leural effusion. Ultrasound images were obtained. Approximately 400 mL of cloudy pleural fluid was re moved and sent to the lab for analysis. The catheter was removed and Band-Aid applied. The patient to lerated the procedure well. Vital signs will be monitored on the floor and a chest x-ray will be obta ined post procedure. IMPRESSION: Ultrasound-guided left thoracentesis as detailed above. Performed, dictated, and signed by Rocky Aguilera PA-C; to be co-signed by Dr. Ryan Florence. Electronically signed by: Ryan Florence M.D. 04/23/2023 2:28 PM
--- NOTE | 2023-04-23 14:41 | XRay Report ---
SINGLE VIEW CHEST CLINICAL HISTORY: Status post left thoracentesis. FINDINGS: An AP upright chest radiograph is compared to chest x-ray and chest CT performed earlier th e same day 04/23/2023. The heart is mildly enlarged. The pulmonary vasculature is noncongested. There is a small residual left pleural effusion with left basilar consolidation. The right lung appears ron ar. No pneumothorax is seen. The skeletal structures are osteopenic. The bony thorax is grossly intac t. IMPRESSION: 1. No pneumothorax is identified post procedure. 2. Small residual left pleural effusion with left basilar consolidation. ACT 112: Negative or not required by law. Electronically signed by: Ryan Florence M.D. 04/23/2023 2:39 PM
[2023-04-23 15:38] LABS: Amylase Pleural Fluid < 10 U/L
[2023-04-23 15:43] LABS: Glucose Pleural Fluid 113 mg/dl; LDH Pleural Fluid 239 U/L; Total Protein Pleural Fluid 4.2 gm/dl
[2023-04-23 16:50] LABS: Appearance Pleural Fluid Cloudy; Color Pleural Fluid Yellow; RBC Pleural Fluid Auto 10000 /uL; Source Pleural Fluid Left Lung; WBC Pleural Fluid Auto 7423 /uL
[2023-04-23 16:54] LABS: Lymphocytes, Fluid 44 %; Mono,Macrophage,Mesothelial 20 %; Neutrophils, Fluid 36 %
[2023-04-23] MEDS: OPTIRAY 320 500ml IV ONE (17:23)
--- NOTE | 2023-04-23 17:46 | CT Scan Report ---
ABDOMEN AND PELVIS CT WITH IV AND ORAL CONTRAST CT DOSE: 1881.31 mGy.cm HISTORY: Abnormal chest CTA. air intra-abdominal fat,s/p gastric bypass surgery 2wk TECHNIQUE: Multiaxial CT images of the abdomen and pelvis were performed following the use of intrave nous and oral contrast. A dose lowering technique was utilized adhering to the principles of ALARA. COMPARISON STUDY: Abdomen and pelvis CT 05/31/2022. Chest CTA 04/23/2023. FINDINGS: There is again noted a small left pleural effusion and left lower lobe consolidation. This may represent atelectasis or a pneumonia. The right lung base is clear. No acute fractures identified . Small ill-defined subcutaneous fluid collection within the right anterior abdominal wall measuring 2.9 cm. This may represent postoperative seroma from the port site given the recent surgery. There is a tiny fat-containing umbilical hernia. Hepatic steatosis. Prior cholecystectomy. The main portal ve in is patent. The pancreas is atrophic. No splenic masses. Normal adrenal glands. There are small rig ht renal cysts. Bilateral nephrolithiasis. No ureteral stones. No hydronephrosis. Calcified plaque wi thin the normal caliber abdominal aorta. No retroperitoneal or pelvic lymphadenopathy. Trace pelvic f ree fluid. Residual contrast within the bladder. Prior hysterectomy. Mild pelvic floor collapse. No d ilated loops of bowel to suggest an obstruction. Postoperative changes consistent with a prior Yanet-e n-Y gastric bypass. Normal caliber esophagus. There is a multiloculated gas and fluid collection at t he expected location of the gastric pouch within the epigastric region. There is surrounding inflamma tory change. This fluid collection abuts the left hepatic lobe and medial aspect of the spleen and ap pears to be septated. This is concerning for an abscess and/or anastomotic leak. This gas and fluid c ollection is difficult to measure given its multiloculated appearance but appears to measure approxim ately 7.8 x 2.5 cm. IMPRESSION: 1. Postoperative changes consistent with a prior Yanet-en-Y gastric bypass. There is a multiloculated gas and fluid collection at the expected location of the gastric pouch within the epigastric region. There is associated surrounding inflammatory change. This fluid collection abuts the left hepatic lob e and medial aspect of the spleen and appears to be septated. This is concerning for an abscess and/o r anastomotic leak. This gas and fluid collection is difficult to measure given its multiloculated ap pearance but appears to measure approximately 7.8 x 2.5 cm. This would not be amenable to percutaneou s drainage given the location. 2. Small left pleural effusion and left basilar consolidation. This may represent atelectasis or pneu monia. 3. Bilateral nephrolithiasis. No hydronephrosis. 4. Additional findings as described above. ACT 112: Negative or not required by law. Electronically signed by: Jose Daniels M.D. 04/23/2023 5:43 PM
[2023-04-23] MEDS ORDERED: VANCOMYCIN CONSULT ACTIVE PRN (18:18)
[2023-04-23] MEDS ORDERED: VANCOMYCIN HCL 1,000 MG in SODIUM CHLORIDE 0.9% 250 ML IV SCH (18:30)
[2023-04-23] MEDS: LACTATED RINGER'S 1,000 ML IV SCH (19:18)
--- NOTE | 2023-04-23 19:37 | Discharge Summary ---
Discharge Summary Date of Service April 23, 2023 Notes For Next Care Provider Medication Changes From Visit Ertapenem 1000 mg IV every 24 hours Vancomycin 2250 mg IV every 24 hours LR at 125 MLS per hour Admission HPI Per Admitting Provider Promise Reed is a 57yo female with history of DM, HLP and GERD, - had minimally invasive robotic gastric bypass surgery performed two weeks ago at [facility] [place] by Dr. Lillian Porras. She reports that the surgery went well with no complications identified. She was discharged home on April 09. She has a followup appointment scheduled for 05/06/23. She has been doing well overall until the last two days when she developed fever, chills, body aches as well as dry cough and anterior/left sided chest discomfort. Her fevers have been as high as 103.8. Denies abdominal pain, nausea, vomiting, diarrhea or constipation. She has been keeping to her post-op diet and vitamins. Steri strips are in place - no bleeding/dehiscence or redness. In the ER she is tachycardic, elevated temperature at 37.7. ER Course: Azithromycin Ceftriaxone NSS Principal Dx & Hospital Course #1 = Principal Diagnosis (1) Sepsis: 57yo female with history of HLP, DMII, and s/p gastric bypass surgery revision performed 2 weeks ago at [facility] by Dr. Michelle Porras who is presenting with two days of fatigue, and 1 day of fever, dry cough and rib pain from coughing. With leukocytosis WBC at 15, tachycardia, and fever. Fortunately, blood pressures are normal to hypertensive. CT angiogram of the chest negative for PE, with atelectasis in the left lower lobe and a moderate-sized left pleural effusion. Also noted are a few air collections in the far upper abdomen and a probable small infarct in the medial aspect of spleen Patient initially sent for thoracentesis and pleural fluid was exudative but pH was 7.44 and Gram stain negative, cultures pending. Most likely reactive to intra-abdominal abscess found on CT abdomen/pelvis later in the day after she was able to drink oral contrast. CT abdomen/pelvis showed multiloculated gas and fluid collection at expected location of gastric pouch in the epigastric region abutting the left hepatic lobe and medial aspect of the spleen, appearing septated concerning for abscess and/or anastomotic leak, approximately 7.8 x 2.5 cm and not amenable to percutaneous drainage given the location. Patient was initially started on ceftriaxone and azithromycin for pulmonary source of infection, but after intra-abdominal likely abscess found on CT abdomen/pelvis, started IV ertapenem and vancomycin -Keep n.p.o. -Start LR at 125 MLS per hour -Continue IV ertapenem and vancomycin, follow Vanco levels and renal function -Follow CBC, CMP -Blood cultures are drawn and pending -UA with 10-30 WBC, epithelial cells 20-30, trace leukocyte Estrace, trace blood, negative bacteria, urine culture pending -Pleural fluid culture pending -I discussed her care with Dr. Hitesh Godwin at [facility] of the surgery department and he has accepted the patient in transfer (2) Intra-abdominal abscess: As above (3) Pleural effusion on left: As above, pleural fluid culture pending at time of transfer Exudative by Light's criteria Appreciate pulmonology consultation (4) Status post gastric surgery: Transfer back for intra-abdominal abscess versus anastomotic leak Hold home vitamins for now while n.p.o. (5) Hyperlipidemia: Chronic -Continue Simvastatin once taking p.o. (6) Type 2 diabetes mellitus: Seems to have resolved - last A1C=5.8 in 2019 - ISS as needed Holding home Mounjaro and metformin Plan DVT prophylaxis-was on Lovenox injections at home but hold in case of need for surgery Disposition-transfer urgently to [facility], Dr. Hitesh Godwin is the accepting physician Discharge Exam Constitutional WD/WN, vitals as above Respiratory normal respiratory effort Auscultation: + diminished lung sounds (Left base) Cardiovascular Rate/Rhythm: regular rhythm and + tachycardic Heart Sounds: normal S1 and normal S2; no murmur Extremities: no edema Gastrointestinal (Abdomen) Inspection/Auscultation: + abdomen abnormal to inspection (5 laparoscopic incisions healing with Steri-Strips in place) Percussion/Palpation: + abdomen tender (Mild in mid to epigastric region without guarding or rebound) and abdomen soft; no guarding and no hernia Skin no rashes, warm and dry Neurologic PERRL, EOMI, accommodation nl, no face palsy, no dysarthria Psychiatric A+Ox3, euthymic affect Updated Medication List Medication Instructions Recorded Confirmed Type cyclobenzaprine 10 mg tablet 10 mg PO DAILY PRN Muscle 05/18/19 04/23/23 History Spasm/migraines sumatriptan succinate 50 mg tablet 50 mg PO DAILY PRN Migraine 05/18/19 04/23/23 History (Imitrex) Headache lancets (Accu-Chek Fastclix Lancet #50 ea 05/20/19 11/29/20 Rx Drum) cyanocobalamin (vitamin B-12) 1,000 mcg IM MONTHLY 12/22/19 04/23/23 History 1,000 mcg/mL injection solution ergocalciferol (vitamin D2) 1,250 50,000 unit PO 2XWK 12/22/19 04/23/23 History mcg (50,000 unit) capsule (Vitamin D2) blood sugar diagnostic (Accu-Chek 02/19/20 11/29/20 History Guide test strips) pen needle, diabetic 32 gauge x 02/19/20 11/29/20 History 532" (BD Ultra-Fine Aaliyah Pen Needle) simvastatin 10 mg tablet (Zocor) 10 mg PO QPM 05/02/20 04/23/23 History ondansetron 4 mg disintegrating 4 mg PO Q6 PRN nausea and vomiting 05/31/22 04/23/23 Rx tablet #14 tabs metformin 1,000 mg tablet 1,000 mg PO BID 04/23/23 04/23/23 History tirzepatide 5 mg/0.5 mL 5 mg subcut WK 04/23/23 04/23/23 History subcutaneous pen injector (Mounjaro) Hospital Stay Data Consultations 04/23/23 04:48 ED Decision to Admit Stat 04/23/23 05:24 Consult Pulmonology Routine Diagnostic Imagining Performed 04/23/23 03:27 CT angio chest PE protocol Stat 04/23/23 07:26 IR thoracentesis wo tube US Routine 04/23/23 11:15 CT abd pelvis oral and IV con Urgent Pending Results Patient Have Any Pending Studies at Discharge: Yes (Blood cultures, urine culture, pleural fluid culture) Discharge Instructions Given to Patient (Per Discharging Provider) Transferred to [facility] Total Time Total Time Spent Total Time Spent (In Minutes): 75 minutes Coding Level of Care Code 65215 INP/OBS DISCH >30 MIN Diagnoses Sepsis A41.9 Intra-abdominal abscess K65.1 Pleural effusion on left J90 Status post gastric surgery Z98.890 Hyperlipidemia E78.5 Type 2 diabetes mellitus E11.9
[2023-04-23] MEDS: ERTAPENEM SODIUM 1,000 MG in SYRINGE 0 ML IV SCH (20:11)
[2023-04-23] MEDS: VANCOMYCIN HCL 2,250 MG in SODIUM CHLORIDE 0.9% 500 ML IV ONE (20:21)
[2023-04-23] MEDS: SIMVASTATIN 10 MG TAB PO SCH (20:29)
[2023-04-24] MEDS ORDERED: AZITHROMYCIN 250 MG in DEXTROSE 5% 250 ML IV SCH (05:00)
[2023-04-24] MEDS ORDERED: cefTRIAXone SODIUM 2,000 MG in DEXTROSE 5 % MINI-B 50 ML IV SCH (05:00)
[2023-04-24 07:18] LABS: Hemoglobin 10.9 g/dl (12.0-16.0); Mean Corpuscular Hemoglobin 29.2 pg (25.0-34.0); Mean Corpuscular Volume 88.5 fL (80.0-100.0); Mean Platelet Volume 9.7 fL (9.4-12.4); Platelet Count 326 K/uL (130-400); RDW Coefficient of Variation 12.9 % (11.5-14.5); RDW Standard Deviation 41.7 fL (36.4-46.3); Red Blood Count 3.73 M/uL (4.20-5.40); White Blood Count 12.64 K/ul (4.8-10.8)
--- NOTE | 2023-04-24 07:23 | Pulmonology Progress Note ---
Date of Service April 24, 2023 Assessment & Plan (1) Pleural effusion on left: (2) Chest pain: Chest pain type: unspecified Qualified Code(s): R07.9 - Chest pain, unspecified Plan CT chest 04/23/2023 personally reviewed: Moderate left-sided pleural effusion with compressive atelectasis of the subsegment of the left lower lobe Cardiomegaly No significant mediastinal lymphadenopathy Motion degraded study -- Left-sided pleural effusion with possible left lower lobe pneumonia COVID-19, influenza A/B and RSV negative Procalcitonin 0.14 S/p thoracentesis 04/23/2023, removal of 400 mL of cloudy fluid, exudative as per lights criteria Likely reactive to the infradiaphragmatic process/abscess. Follow-up cultures Pleural fluid: LDH 239, protein 4.2, pH 7.44 --Probable ABRAN Plan: Will benefit from incentive spirometry Probability of reaccumulation of pleural fluid is there if the underlying intra- abdominal issue have not been taken care of. Patient is waiting to be transferred to [place] where she had the initial surgery done. Please note the above document was generated using voice recognition software. It may contain grammatical, syntax or spelling errors.Any formal questions or concerns about the content, text or information contained within the body of this dictation should be directly addressed to the provider for clarification. Admission and Anticipated Discharge Date Admission Date: April 23, 2023 Subjective Patient seen and examined at bedside. No acute distress, notable since overnight She says she is feeling more comfortable compared to yesterday Her coughing has come back. But denies any pleuritic chest pain No nausea or vomiting No headache, blurry vision Review of Systems 2 Review of Systems: All systems reviewed & are unremarkable except as noted in Subjective Physical Exam 2 Physical Exam: Constitutional: No acute distress, lethargic HEENT: EOMI, PERRLA Respiratory system: Decreased air entry on the left side, no wheeze, no rhonchi, mild crackles bilateral lower lobes more on the left CVS: S1-S2 positive, no murmurs or gallops, tachycardia Abdomen: Soft, nontender, nondistended, positive bowel sounds x4, obese, bandages on the laparoscopic holes appreciated, no redness Extremities: +2 pulses bilaterally radialis/ dorsalis pedis, no cyanosis, no edema Neuro: Awake alert oriented x3 Psych: Normal mood and affect G/U: No Smith Skin: no rashes, warm and dry Lymphatic: no cervical or axillary lymphadenopathy Results & Data Results & Data Vital Signs (Past 12 Hours) Vital Signs Temp Pulse Pulse Resp BP BP Pulse Ox 04/24/23 03:52 37.1 C 109 H 14 120/72 98 04/24/23 03:28 04/23/23 22:50 37.4 C 102 H 18 127/52 L 97 04/23/23 21:56 94 H 04/23/23 19:38 36.5 C 106 H 18 127/75 94 O2 Del Method O2 Flow Rate 04/24/23 03:52 Room Air 04/24/23 03:28 Nasal Cannula 2 04/23/23 22:50 Room Air 04/23/23 21:56 04/23/23 19:38 Nasal Cannula 2 Laboratory Results 04/24/23 06:26 PG Care Time/CCT Total # of Minutes Spent Total Time Spent with Patient: Total time spent is greater than 50% in coordination of care (as documented) at patient's floor/unit and/or counseling patient: Coding Level of Care Code 11562 SUB INP/OBS CARE 2/35MIN Diagnoses Pleural effusion on left J90 Chest pain R07.9 Chest pain type: unspecified
[2023-04-24 07:36] LABS: BUN Creatinine Ratio 11.1 (10-20); Calcium 8.7 mg/dl (8.6-10.3); Creatinine Clr Calc Pharmacy 132.6 ml/min; Est GFR (African American) 121.4 ml/min; Est GFR (Non-African American) 104.8 ml/min; Potassium 3.6 mmol/L (3.5-5.1)
[2023-04-24] MEDS ORDERED: VANCOMYCIN HCL 1,250 MG in SODIUM CHLORIDE 0.9% 250 ML IV SCH (09:00)
== END 2023-04-24 09:47 | disposition short-term general hospital (02) | DRG 872 ==
LOC: SUATTDRO → ED 03:18 → SUATTDRO 05:24 → EDINP 05:24 → 2N 06:27
DX: E78.5 Hyperlipidemia, unspecified; A41.9 Sepsis, unspecified organism; Z88.0 Allergy status to penicillin; J90 Pleural effusion, not elsewhere classified; E11.9 Type 2 diabetes mellitus without complications; Z88.5 Allergy status to narcotic agent; Z79.899 Other long term (current) drug therapy; Z79.84 Long term (current) use of oral hypoglycemic drugs; Z88.1 Allergy status to other antibiotic agents; G47.33 Obstructive sleep apnea (adult) (pediatric)

== ENCOUNTER 2023-11-23 16:31 | Inpatient (IN) ==
--- NOTE | 2023-11-23 17:06 | ED Triage Note ---
Date of Service November 23, 2023 Provider in Triage Author: Sumaya Whittaker History of Present Illness This patient was briefly evaluated while in triage. An abbreviated physical exam was performed. This patient is a 57-year-old Female who presents to the ED for evaluation of multiple symptoms. She has had a headache, weakness, and lightheadedness. She reports nausea and vomiting. She had an appointment with her PCP today and they told her to come here. She had gastric bypass surgery at the beginning of the year and has had complications - a leak and has had multiple endoscopies for this and obstruction. She does report abdominal pain and that it feels similar to when she has had issues with her gastric bypass. Physical Exam GENERAL: Non-toxic and in no acute distress. HEENT: Pupils equal. No obvious scleral icterus. HEART: Regular rate and rhythm. LUNGS: Clear to auscultation. No accessory muscle use. ABDOMEN: Tenderness in the LUQ and epigastric region. NEURO: Alert and oriented. No obvious neurological deficits on quick neuro exam. Initial orders for labs and / or imaging were placed and patient was placed in the waiting area until a bed is available. Please see further documentation for the full ED course.
[2023-11-23] MEDS: ONDANSETRON INJ 2 MG/ML 2 ML VIAL IV STA (17:31)
[2023-11-23] MEDS: SODIUM CHLORIDE 0.9% 1,000 ML IV ONE (17:31)
[2023-11-23 18:12] LABS: Basophils # (auto) 0.06 K/uL (0.00-0.20); Basophils % (auto) 0.7 %; Eosinophils # (auto) 0.14 K/uL (0.00-0.50); Eosinophils % (auto) 1.5 %; Hematocrit (blood only) 40.6 % (37.0-47.0); Hemoglobin 14.1 g/dl (12.0-16.0); Immature Granulocytes # (auto) 0.03 K/uL (0.01-0.20); Immature Granulocytes % (auto) 0.3 %; Lymphocytes # (auto) 2.76 K/uL (1.20-3.40); Lymphocytes % (auto) 29.9 %; Mean Corpuscular Hgb Conc 34.7 g/dL (32.0-36.0); Mean Corpuscular Volume 86.4 fL (80.0-100.0); Mean Platelet Volume 10.8 fL (9.4-12.4); Monocytes # (auto) 0.89 K/uL (0.11-0.59); Monocytes % (auto) 9.7 %; Neutrophils # (auto) 5.34 K/uL (1.40-6.50); Neutrophils % (auto) 57.9 %; Platelet Count 238 K/uL (130-400); RDW Coefficient of Variation 11.8 % (11.5-14.5); RDW Standard Deviation 37.3 fL (36.4-46.3); White Blood Count 9.22 K/ul (4.8-10.8)
[2023-11-23 18:26] LABS: Albumin Globulin Ratio 1.7 (0.9-2); Albumin Level 4.8 gm/dl (3.4-5.0); BUN Creatinine Ratio 22.1 (10-20); Bilirubin,Total 0.9 mg/dl (0.2-1.0); Calcium 9.9 mg/dl (8.6-10.3); Est GFR (African American) 112.5 ml/min; Est GFR (Non-African American) 97.1 ml/min; Globulin 2.9 gm/dl (2.5-4.0); Potassium 3.7 mmol/L (3.5-5.1); Total Protein 7.7 gm/dl (6.0-8.3)
[2023-11-23 18:33] LABS: Appearance Urine Cloudy (Clear); Bacteria Urine Automated None Seen (None Seen); Bilirubin Urine Negative (Negative); Blood Urine Negative (Negative); Color Urine Yellow; Epithelial Cell Urine Auto 0-2 /hpf (0-2); Glucose Urine UA Negative (Negative); Ketones Urine Negative (Negative); Leukocyte Esterase Urine 3+ (Negative); Nitrite Urine Negative (Negative); Protein Urine Negative (Negative); RBC Urine Automated 0-2 /hpf (0-2); Specific Gravity Urine 1.008 (1.000-1.030); Urobilinogen Urine Negative (Negative); WBC Urine Automated >50 /hpf (0-5); pH Urine 5.5 (4.5-7.5)
[2023-11-23 19:02] LABS: Adenovirus PCR Not Detected (NotDetected); Bordetella parapertussis PCR Not Detected (NotDetected); Bordetella pertussis PCR Not Detected (NotDetected); Chlamydia pneumoniae PCR Not Detected (NotDetected); Coronavirus 229E PCR Not Detected (NotDetected); Coronavirus CoV-2 (COVID19)PCR Not Detected (NotDetected); Coronavirus HKU1 PCR Not Detected (NotDetected); Coronavirus NL63 PCR Not Detected (NotDetected); Coronavirus OC43PCR Not Detected (NotDetected); Human Metapneumovirus PCR Not Detected (NotDetected); Influenza A PCR Not Detected (NotDetected); Influenza B PCR Not Detected (NotDetected); Mycoplasma pneumoniae PCR Not Detected (NotDetected); Parainfluenza Virus 1 PCR Not Detected (NotDetected); Parainfluenza Virus 2 PCR Not Detected (NotDetected); Parainfluenza Virus 3 PCR Not Detected (NotDetected); Parainfluenza Virus 4 PCR Not Detected (NotDetected); Respiratory Syncytial VirusPCR Not Detected (NotDetected); Rhinovirus/Enterovirus PCR Not Detected (NotDetected)
[2023-11-23] MEDS: OPTIRAY 320 100ml IV ONE (19:13)
--- NOTE | 2023-11-23 19:56 | CT Scan Report ---
Exam(s): CT HEAD Without Contrast EXAM: CT Head Without Intravenous Contrast CLINICAL HISTORY: Reason for exam: headache. TECHNIQUE: Axial computed tomography images of the head/brain without intravenous contrast. CTDI is 38 mGy and DLP is 546 mGy-cm. Automated exposure control was utilized for the study. A dose lowering technique was utilized adhering to the principles of ALARA. COMPARISON: No relevant prior studies available. FINDINGS: Brain: Unremarkable. No hemorrhage. No significant white matter disease. No edema. Ventricles: Unremarkable. No ventriculomegaly. Bones/joints: Unremarkable. No acute fracture. Soft tissues: Unremarkable. Sinuses: Unremarkable as visualized. No acute sinusitis. Mastoid air cells: Unremarkable as visualized. No mastoid effusion. IMPRESSION: No acute intracranial abnormality Electronically signed by: Rasheed Garcia MD 11/23/23 19:55 PM
--- NOTE | 2023-11-23 20:00 | CT Scan Report ---
Exam(s): CT ABDOMEN + PELVIS With Contrast IV Amt: 91 ml optiray 320 EXAM: CT Abdomen and Pelvis With Intravenous Contrast CLINICAL HISTORY: Reason for exam: abdominal pain, prior gastric bypass. TECHNIQUE: Axial computed tomography images of the abdomen and pelvis with intravenous contrast. CTDI is 38 mGy and DLP is 546 mGy-cm. Automated exposure control was utilized for the study. A dose lowering technique was utilized adhering to the principles of ALARA. CONTRAST: Patient received 91 ml optiray 320 of IV contrast COMPARISON: No relevant prior studies available. FINDINGS: Lung bases: Unremarkable. No mass. No consolidation. ABDOMEN: Liver: Unremarkable. No mass. Gallbladder and bile ducts: Unremarkable. No calcified stones. No ductal dilation. Pancreas: Unremarkable. No mass. No ductal dilation. Spleen: Unremarkable. No splenomegaly. Adrenals: Unremarkable. No mass. Kidneys and ureters: 1.2 cm nonobstructing stone seen in the left kidney. 1.1 cm nonobstructing stone seen in the right kidney.. No solid mass. No hydronephrosis. Stomach and bowel: There is status post gastric bypass surgery. No mucosal thickening. No there is mild prominence of the small bowel distal to the gastrojejunostomy anastomosis site with transition point at the Yanet-en-Y anastomosis site. PELVIS: Appendix: No findings to suggest acute appendicitis. Bladder: Unremarkable. No mass. Reproductive: Unremarkable as visualized. ABDOMEN and PELVIS: Intraperitoneal space: Unremarkable. No free air. No significant fluid collection. Bones/joints: No acute fracture. No dislocation. L4/5 and L5/S1 degenerative disc disease with posterior disc osteophyte complex causing mild spinal canal stenosis. Vasculature: Unremarkable. No abdominal aortic aneurysm. Lymph nodes: Unremarkable. No enlarged lymph nodes. IMPRESSION: Mildly dilated proximal jejunum, suggestive of partial small bowel obstruction Bilateral nonobstructing nephrolithiasis. Electronically signed by: Rasheed Garcia MD 11/23/23 20:00 PM
--- NOTE | 2023-11-23 20:13 | Emergency Department Note ---
Impression & Plan Partial obstruction of small intestine, Headache, Nausea & vomiting ED Provider Note NAME: PROMIES MARCUS AGE: 57 SEX: Female INFORMANT: Patient ED PROVIDER(S): Duane Reynoso MD CHIEF COMPLAINT: Headache and nausea and vomiting PLAN: Disposition: Admitted Outpatient prescription management: none Referral: None MEDICAL DECISION MAKING: Patient presented because of headache, nausea, vomiting abdominal pain. She had a nonfocal neurologic examination. She had some epigastric tenderness but no peritoneal findings on examination. She was afebrile. No nuchal rigidity. Patient was feeling somewhat better just after Zofran. She was hydrated. Given the fact that she still had the headache and the nausea she was given Compazine, Tylenol, and Benadryl. Patient had a negative head CT. Headache seems consistent with migraine and patient states feels similar to her prior migraines. Unfortunately she has a partial small bowel obstruction noted on CT imaging. Her COVID and BioFire testing were negative. CBC and chemistry panels were unremarkable. Urinalysis is questionable patient has no urinary symptoms. LFTs and lipase unremarkable. Further management in the hospital will be necessary. Consultation was made with Dr. Wells staffing branch manager of the [facility] service. Patient was evaluated in the ER for further management. Care/management discussed with: none Level of care consideration(s): After review of the information above and other included data, I feel the patient requires escalation of care to admission Triage Nursing notes: reviewed and agree them. Vital Signs: reviewed and remarkable for no significant abnormalities Additional History obtained from: none Chronic Medical/Social Conditions affecting care: Gastric bypass status Prior/ Outside/ External records reviewed: none Differential Diagnosis: Diagnostics, independently interpreted by me: ECG: none Cardiac Monitoring: Cardiac monitoring ordered by me: The patient was placed on continuous cardiac monitoring and observed. It revealed a normal sinus rhythm at 72 beats per minute without ectopy or evidence of dysrhythmia. Medical decision rules: none Imaging studies: Head CT: A noncontrast CT scan of the head was performed and was negative for tumor, fracture, intracranial hemorrhage, or other acute pathology. CT scan of the abdomen pelvis reveals a partial small bowel obstruction. HPI: 57 year old Female arrives for evaluation of abd pain and headaches. This started a week ago and is persisting. The patient also notes the following associated symptoms, photophobia, nausea, vomiting, weakness. The patient has tried a muscle relaxer relieving factors. Current pain is rated as 7/10. Pt denies LOC, fevers, chills, diaphoresis, visual changes, neck pain, chest pain, breathing difficulties, back pain, melena, hematochezia, urinary symptoms, numbness, lymphadenopathy, rash, or other complaints. . PAST MEDICAL HISTORY: See Below, diabetes, migraines PAST SURGICAL HISTORY: See Below, gastric bypass, appy, joanne SOCIAL HISTORY: See Below, HOME MEDICATIONS: See Below ALLERGIES: See Below VITALS: See Below PHYSICAL EXAMINATION: GENERAL: Awake, alert, well-appearing, in no distress HENT: Normocephalic, atraumatic. Oropharynx unremarkable. EYES: Normal conjunctiva. Sclera non-icteric. PERRLA. EOMI. Fundi normal. NECK: Inspection normal. Non-tender. Supple. No nuchal rigidity. FROM. No masses. RESPIRATORY: Clear to auscultation. No wheezes. No rales. Normal respiratory effort. CARDIAC: Normal rate. Normal rhythm. No murmurs. No rubs. Extremities warm and well perfused. Pulses equal. No JVD. GI: Soft, non-distended. Epigastric tenderness to palpation. No rebound or guarding. No masses. RECTAL: Deferred. MUSCULOSKELETAL: Atraumatic. Chest examination reveals no tenderness. The back is symmetrical on inspection without obvious abnormality. There is no CVA tenderness to palpation. No joint edema. LOWER EXTREMITIES: Calves are equal size bilaterally and non-tender. No edema. No discoloration. NEURO: Normal sensorium. No sensory or motor deficits noted. Cranial nerves II through XII intact. Normal rapid alternating movements. No drift. SKIN: No rash or jaundice noted. PROCEDURES: none CRITICAL CARE: none OBSERVATION NOTE: none Past Med/Surg History Problem List (Updated 11/24/23 @ 01:57 by Duane Reynoso MD) Nausea & vomiting (Acute) Headache (Acute) Partial obstruction of small intestine (Acute) Partial small bowel obstruction Hypothyroidism Gastrointestinal foreign body (Acute) Intra-abdominal abscess Sepsis Status post gastric surgery (Acute) Pleural effusion on left (Acute) Hyperlipidemia (Chronic) UTI (urinary tract infection) Hydronephrosis with obstructing calculus Encounter for pre-operative examination Otalgia Type 2 diabetes mellitus (Chronic) Medical History History of COVID-19 2020 > not hospitalized Seasonal allergies Abdominal pain, LLQ Cervicalgia Constipation Dyslipidemia GERD without esophagitis Hydronephrosis Hyperlipidemia Migraine headache Nephrolithiasis Hx of neck injury as a young child had a bad fall and injured her neck to the point she was unable to move at all for 1 week -> after a home visit of a doctor she has no problems since. Spinal stenosis History of skin cancer all resolved Fatty liver Nausea and vomiting after administration of anesthetic agent Surgical History History of tooth extraction History of tonsillectomy History of appendectomy History of cholecystectomy Hx of foot operation right tarsal tunnel release History of gastric bypass History of esophagogastroduodenoscopy (EGD) History of colonoscopy S/P epidural steroid injection H/O bladder repair surgery bladder tack x2 S/P laparoscopic hysterectomy with LSO S/P right knee arthroscopy Hx of radical excision of skin lesion History of cystoscopy with stone basketing Status post laser lithotripsy of ureteral calculus Family History Father Myocardial infarction Cancer Uncle Myocardial infarction Heart disease Uncle Myocardial infarction Mother Diabetes Allergies Asthma COPD (chronic obstructive pulmonary disease) Grandmother (Maternal) Diabetes Denies family history of No family history of adverse response to anesthesia Stroke Social History Smoking Status: Never smoker Second Hand Exposure: Yes (parents smoked when pt was child); Do You Dip or Chew Tobacco: No; Hx Alcohol Use: No Hx Substance Use: No Preferred Language: Macedonian Communication Ability: Effective Water Resource Engineering Specialist Required: No Beliefs That Will Affect Care: None marital status: Current Living Situation: Spouse current occupational status: employed 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 How many Children do You have: 2 Other Information That Helps Us Care for You: No Feels Safe at Home: Yes Safety Concerns: Feels Safe At This Time Assistive Devices: Glasses Allergies Allergies Allergy/AdvReac Type Severity Reaction Status Date / Time clindamycin Allergy Intermediate Fatigued Verified 09/17/23 08:50 codeine AdvReac Severe Migraine Verified 09/17/23 08:50 levofloxacin [From Levaquin] AdvReac Severe Dizziness Verified 09/17/23 08:50 Home Meds Home Medications Medication Instructions Recorded Confirmed cyclobenzaprine 10 mg tablet 10 mg PO DAILY PRN Muscle 05/18/19 11/23/23 Spasm/migraines sumatriptan succinate 50 mg tablet 50 mg PO DAILY PRN Migraine 05/18/19 11/23/23 (Imitrex) Headache cyanocobalamin (vitamin B-12) 1,000 mcg IM MONTHLY 12/22/19 11/23/23 1,000 mcg/mL injection solution ergocalciferol (vitamin D2) 1,250 50,000 unit PO 2XWK 12/22/19 11/23/23 mcg (50,000 unit) capsule (Vitamin D2) blood sugar diagnostic (Accu-Chek 02/19/20 11/29/20 Guide test strips) pen needle, diabetic 32 gauge x 02/19/20 11/29/20 5/32" (BD Ultra-Fine Aaliyah Pen Needle) tirzepatide 5 mg/0.5 mL 5 mg subcut WK 04/23/23 11/23/23 subcutaneous pen injector (Neena) clobetasol 0.05 % topical ointment 0.5 g topical HS 09/17/23 11/23/23 levothyroxine 25 mcg tablet 25 mcg PO QAM 09/17/23 11/23/23 metformin 500 mg tablet 500 mg PO BID 09/17/23 11/23/23 pantoprazole 40 mg tablet,delayed 40 mg PO QAM 09/17/23 09/17/23 release pediatric multivitamin no.76 2 tab PO QAM 09/17/23 11/23/23 (Flintstones Complete chewable tablet) rosuvastatin 10 mg tablet 10 mg PO HS 09/17/23 11/23/23 Previous Rx's Medication Instructions Recorded lancets (Accu-Chek Fastclix Lancet #50 ea 05/20/19 Drum) ondansetron 4 mg disintegrating 4 mg PO Q6 PRN nausea and vomiting 05/31/22 tablet #14 tabs Results & Data (ED) Vital Signs Vital Signs - 24 hr 11/23/23 17:03 11/23/23 20:43 11/23/23 21:05 Temperature 36.6 C Temperature Source Temporal Artery Scan Pulse Rate 84 93 H Pulse Rate [Apical] 76 Pulse Rhythm Regular Pulse Strength Normal Respiratory Rate 18 16 Respiratory Effort / Characteristics Non-Labored Respiratory Depth Normal Respiratory Pattern Regular Blood Pressure 150/82 H Blood Pressure [Right Arm] 167/75 H Blood Pressure Mean 104 Blood Pressure Mean [Right Arm] 105 Pulse Oximetry 98 97 Oxygen Delivery Method Room Air Room Air Sepsis Recent Fever Within 48 Hours No Sepsis New/Unexplained Change in Mental Status No Sepsis Action Taken by Nursing No Action Required Laboratory Data 11/23/23 17:14 11/23/23 17:14 Lab Results 11/23/23 Range/Units 17:14 WBC 9.22 (4.8-10.8) K/ul RBC 4.70 (4.20-5.40) M/uL Hgb 14.1 (12.0-16.0) g/dl Hct 40.6 (37.0-47.0) % MCV 86.4 (80.0-100.0) fL MCH 30.0 (25.0-34.0) pg MCHC 34.7 (32.0-36.0) g/dL RDW Std Deviation 37.3 (36.4-46.3) fL RDW Coeff of Sayda 11.8 (11.5-14.5) % Plt Count 238 (130-400) K/uL MPV 10.8 (9.4-12.4) fL Immature Gran % (Auto) 0.3 % Neut % (Auto) 57.9 % Lymph % (Auto) 29.9 % Sumter % (Auto) 9.7 % Eos % (Auto) 1.5 % Baso % (Auto) 0.7 % Neut # (Auto) 5.34 (1.40-6.50) K/uL Lymph # (Auto) 2.76 (1.20-3.40) K/uL Sumter # (Auto) 0.89 H (0.11-0.59) K/uL Eos # (Auto) 0.14 (0.00-0.50) K/uL Baso # (Auto) 0.06 (0.00-0.20) K/uL Immature Gran # (Auto) 0.03 (0.01-0.20) K/uL Sodium 140 (136-145) mmol/L Potassium 3.7 (3.5-5.1) mmol/L Chloride 104 (98-107) mmol/L Carbon Dioxide 27 (21-32) mmol/L Anion Gap 9 (3-11) BUN 15 (6-23) mg/dl Creatinine 0.68 (0.6-1.2) mg/dl Est Cr Clr Drug Dosing 91.0 ml/min Est GFR ( Amer) 112.5 ml/min Est GFR (Non-Af Amer) 97.1 ml/min BUN/Creatinine Ratio 22.1 H (10-20) Glucose 82 (70-99(Fasting)) mg/dl Calcium 9.9 (8.6-10.3) mg/dl Phosphorus 4.7 (2.5-4.9) mg/dl Magnesium 1.9 (1.7-2.4) mg/dl Total Bilirubin 0.9 (0.2-1.0) mg/dl AST 28 (13-39) U/L ALT 36 (7-52) U/L Alkaline Phosphatase 87 (34-104) U/L Total Protein 7.7 (6.0-8.3) gm/dl Albumin 4.8 (3.4-5.0) gm/dl Globulin 2.9 (2.5-4.0) gm/dl Albumin/Globulin Ratio 1.7 (0.9-2) Lipase 20 (11-82) U/L Urine Color Yellow Urine Appearance Cloudy A (Clear) Urine pH 5.5 (4.5-7.5) Ur Specific Ogilvie 1.008 (1.000-1.030) Urine Protein Negative (Negative) Urine Glucose (UA) Negative (Negative) Urine Ketones Negative (Negative) Urine Blood Negative (Negative) Urine Nitrite Negative (Negative) Urine Bilirubin Negative (Negative) Urine Urobilinogen Negative (Negative) Ur Leukocyte Esterase 3+ H (Negative) Urine WBC (Auto) >50 H (0-5) /hpf Urine RBC (Auto) 0-2 (0-2) /hpf U Hyaline Cast (Auto) 3-5 H (0-2) /lpf U Epithel Cells (Auto) 0-2 (0-2) /hpf Urine Bacteria (Auto) None Seen (None Seen) Urine Yeast Present A (None Prsent) Adenovirus (PCR) Not Detected (NotDetected) B. pertussis DNA (PCR) Not Detected (NotDetected) B.parapertussis DNA PCR Not Detected (NotDetected) C. pneumoniae DNA (PCR) Not Detected (NotDetected) Coronavirus OC43 (PCR) Not Detected (NotDetected) Coronavirus HKU1 (PCR) Not Detected (NotDetected) Coronavirus 229E (PCR) Not Detected (NotDetected) SARS-CoV-2 (PCR) Not Detected (NotDetected) Coronavirus NL63 (PCR) Not Detected (NotDetected) Human Metapneumovir PCR Not Detected (NotDetected) Influenza Type A (PCR) Not Detected (NotDetected) Influenza Type B (PCR) Not Detected (NotDetected) M. pneumoniae (PCR) Not Detected (NotDetected) Parainfluenza 1 (PCR) Not Detected (NotDetected) Parainfluenza 2 (PCR) Not Detected (NotDetected) Parainfluenza 3 (PCR) Not Detected (NotDetected) Parainfluenza 4 (PCR) Not Detected (NotDetected) RSV (PCR) Not Detected (NotDetected) Entero/Rhino (PCR) Not Detected (NotDetected) Administered Medications Lactated Ringer's (Lr) 1,000 mls @ 80 mls/hr IV .[id number] FRED Stop: 11/24/23 23:48 Last Admin: 11/23/23 23:44 Dose: 80 mls/hr Documented By: ALDO Discontinued Medications Diphenhydramine HCl (Diphenhydramine 50 Mg/Ml Vial) 12.5 mg IV NOW STA Stop: 11/23/23 20:21 Last Admin: 11/23/23 20:46 Dose: 12.5 mg Documented By: HERRERA Sodium Chloride (Nss) 1,000 mls @ 999 mls/hr IV .Q1H1M ONE Stop: 11/23/23 18:06 Last Infusion: 11/23/23 18:32 Dose: Infused Documented By: Admin: 11/23/23 17:31 Dose: 999 mls/hr Documented By: MUMTAZ Prochlorperazine (Compazine) 2 mls @ 1 mls/min IV ONE ONE Stop: 11/23/23 20:21 Last Admin: 11/23/23 20:49 Dose: 1 mls/min Documented By: HERRERA Magnesium Sulfate/Dextrose (Magnesium Sulfate / D5w) 1 gm in 100 mls @ 50 mls/hr IV ONE ONE Stop: 11/23/23 22:19 Last Infusion: 11/24/23 00:00 Dose: Infused Documented By: Admin: 11/23/23 20:55 Dose: 50 mls/hr Documented By: HERRERA Sodium Chloride (Nss) 1,000 mls @ 125 mls/hr IV .Q8H FRED Stop: 12/23/23 20:29 Last Infusion: 11/24/23 00:01 Dose: Infused Documented By: Admin: 11/23/23 20:46 Dose: 125 mls/hr Documented By: HERRERA Ioversol (Optiray 320 100ml) 91 ml IV ONCE ONE Stop: 11/23/23 19:13 Last Admin: 11/23/23 19:13 Dose: 91 ml Documented By: SO Ondansetron HCl (Ondansetron Inj 2 Mg/Ml 2 Ml Vial) 4 mg IV NOW STA Stop: 11/23/23 17:07 Last Admin: 11/23/23 17:31 Dose: 4 mg Documented By: MUMTAZ Imaging Data Radiologist's Impression: Abdomen/Pelvis CT 11/23/23 17:07 Exam(s): CT ABDOMEN + PELVIS With Contrast IV Amt: 91 ml optiray 320 EXAM: CT Abdomen and Pelvis With Intravenous Contrast CLINICAL HISTORY: Reason for exam: abdominal pain, prior gastric bypass. TECHNIQUE: Axial computed tomography images of the abdomen and pelvis with intravenous contrast. CTDI is 38 mGy and DLP is 546 mGy-cm. Automated exposure control was utilized for the study. A dose lowering technique was utilized adhering to the principles of ALARA. CONTRAST: Patient received 91 ml optiray 320 of IV contrast COMPARISON: No relevant prior studies available. FINDINGS: Lung bases: Unremarkable. No mass. No consolidation. ABDOMEN: Liver: Unremarkable. No mass. Gallbladder and bile ducts: Unremarkable. No calcified stones. No ductal dilation. Pancreas: Unremarkable. No mass. No ductal dilation. Spleen: Unremarkable. No splenomegaly. Adrenals: Unremarkable. No mass. Kidneys and ureters: 1.2 cm nonobstructing stone seen in the left kidney. 1.1 cm nonobstructing stone seen in the right kidney.. No solid mass. No hydronephrosis. Stomach and bowel: There is status post gastric bypass surgery. No mucosal thickening. No there is mild prominence of the small bowel distal to the gastrojejunostomy anastomosis site with transition point at the Yanet-en-Y anastomosis site. PELVIS: Appendix: No findings to suggest acute appendicitis. Bladder: Unremarkable. No mass. Reproductive: Unremarkable as visualized. ABDOMEN and PELVIS: Intraperitoneal space: Unremarkable. No free air. No significant fluid collection. Bones/joints: No acute fracture. No dislocation. L4/5 and L5/S1 degenerative disc disease with posterior disc osteophyte complex causing mild spinal canal stenosis. Vasculature: Unremarkable. No abdominal aortic aneurysm. Lymph nodes: Unremarkable. No enlarged lymph nodes. IMPRESSION: Mildly dilated proximal jejunum, suggestive of partial small bowel obstruction Bilateral nonobstructing nephrolithiasis. Electronically signed by: Rasheed Garcia MD 11/23/23 20:[address] 11/23/23 18:11 Exam(s): CT HEAD Without Contrast EXAM: CT Head Without Intravenous Contrast CLINICAL HISTORY: Reason for exam: headache. TECHNIQUE: Axial computed tomography images of the head/brain without intravenous contrast. CTDI is 38 mGy and DLP is 546 mGy-cm. Automated exposure control was utilized for the study. A dose lowering technique was utilized adhering to the principles of ALARA. COMPARISON: No relevant prior studies available. FINDINGS: Brain: Unremarkable. No hemorrhage. No significant white matter disease. No edema. Ventricles: Unremarkable. No ventriculomegaly. Bones/joints: Unremarkable. No acute fracture. Soft tissues: Unremarkable. Sinuses: Unremarkable as visualized. No acute sinusitis. Mastoid air cells: Unremarkable as visualized. No mastoid effusion. IMPRESSION: No acute intracranial abnormality Electronically signed by: Rasheed Garcia MD 11/23/23 19:55 PM Discharge Plan Visit Data Chief Complaint: Referred by Doctor Stated Complaint: REF BY DOC,N/V/D, HEADACHE ED Provider: Duane Reynoso Discharge Problem: Partial obstruction of small intestine, Headache, Nausea & vomiting Patient Disposition: Admitted As Inpatient Discharge Instructions Interventions: ED Discharge Assessment Last Done: 11/23/23 22:52
[2023-11-23] MEDS: SODIUM CHLORIDE 0.9% 1,000 ML IV SCH (20:46)
[2023-11-23] MEDS: diphenhydrAMINE 50 MG/ML VIAL IV STA (20:46)
[2023-11-23] MEDS: PROCHLORPERAZINE 2 ML IV ONE (20:49)
[2023-11-23] MEDS: MAGNESIUM SULFATE / D5W 1 GM/100 ML BAG IV ONE (20:55)
--- NOTE | 2023-11-23 21:25 | History & Physical Report ---
Date of Service November 23, 2023 Assessment & Plan (1) Partial small bowel obstruction: Plan: Patient with abdominal pain, improving. Denies nausea or vomiting at present. Imaging as above with suggestion of partial SBO. Patient reports she is passing gas. Exam findings with negative pain, no distention and normoactive bowel sounds. Uncertain etiology of abdominal pain earlier in the week - seemingly improved. Patient is on Mounjaro at home - consideration if abdominal pain continues. -Admit to medical -Maintain NPO status, aspiration precautions -Gentle hydration - LR at 80mL/hr x 2L -Zofran PRN -Morphine PRN -General Surgery consultation appreciated (2) Migraine headache: Plan: Patient with migraine headache. She reports that Tylenol typically resolves her headache -Tylenol PRN Plan Chronic Medical Issues Diabetes - Well controlled. Last [id number]=3.8 on 02/07/20. Patient on Metformin and Mounjaro at home. -Hold home medications -ISS -Goal blood sugar 110 - 140 Hypothyroidism - Chronic. Last TSH WNL in 2019 -Check TSH with AM labs -Continue Synthroid Hyperlipidemia - Chronic -Continue Crestor F/E/N- LR at 80mL/hr, electrolytes WNL, NPO for now Ppx - Lovenox 40 Code - Full Dispo - Admit to medical History of Present Illness Chief Complaint: abdominal pain Primary Care Provider: Ramses Ng Promise Reed is a 57yo female with history of DM, HLP, GERD, s/p gastric bypass surgery [place] [facility] [place] by a anastomotic leak. Patient presents today with abdominal pain. Patient developed severe upper abdominal pain approximately one week ago. She thought maybe this was secondary to a GI illness because she had some family members that were similarly ill. Her abdominal pain did improve on its own. On 11/20 she developed a severe headache/migraine with some episodic dizziness. Today her abdominal pain returned. Pain is in the LUQ mostly. She has been able to eat but then develops some nausea and non-bloody/non-bilious vomiting. She had a normal BM this AM and has been passing flatus. She reports her baseline bowel habits are that she won't have a BM for 3-4 days then has an explosive BM. She denies abdominal pain or nausea at present. No distention. Her headache persists as well - bitemporal and at the top of her head. Associated with some photophobia and nausea. Symptoms typical of her migraines. In the ER she is afebrile, HD stable ER Course: Benadryl Magnesium Zofran NSS Prochlorperazine Allergies Allergy/AdvReac Type Severity Reaction Status Date / Time clindamycin Allergy Intermediate Fatigued Verified 09/17/23 08:50 codeine AdvReac Severe Migraine Verified 09/17/23 08:50 [facility] AdvReac Severe Dizziness Verified 09/17/23 08:50 Home Medications Medication Instructions Recorded Confirmed Type cyclobenzaprine 10 mg tablet 10 mg PO DAILY PRN Muscle 05/18/19 11/23/23 History Spasm/migraines sumatriptan succinate 50 mg tablet 50 mg PO DAILY PRN Migraine 05/18/19 11/23/23 History (Imitrex) Headache lancets (Accu-Chek Fastclix Lancet #50 ea 05/20/19 11/29/20 Rx Drum) cyanocobalamin (vitamin B-12) 1,000 mcg IM MONTHLY 12/22/19 11/23/23 History 1,000 mcg/mL injection solution ergocalciferol (vitamin D2) 1,250 50,000 unit PO 2XWK 12/22/19 11/23/23 History mcg (50,000 unit) capsule (Vitamin D2) blood sugar diagnostic (Accu-Chek 02/19/20 11/29/20 History Guide test strips) pen needle, diabetic 32 gauge x 02/19/20 11/29/20 History 5/32" (BD Ultra-Fine Aaliyah Pen Needle) ondansetron 4 mg disintegrating 4 mg PO Q6 PRN nausea and vomiting 05/31/22 09/17/23 Rx tablet #14 tabs tirzepatide 5 mg/0.5 mL 5 mg subcut WK 04/23/23 11/23/23 History subcutaneous pen injector (Neena) clobetasol 0.05 % topical ointment 0.5 g topical HS 09/17/23 11/23/23 History levothyroxine 25 mcg tablet 25 mcg PO QAM 09/17/23 11/23/23 History metformin 500 mg tablet 500 mg PO BID 09/17/23 11/23/23 History pantoprazole 40 mg tablet,delayed 40 mg PO QAM 09/17/23 09/17/23 History release pediatric multivitamin no.76 2 tab PO QAM 09/17/23 11/23/23 History (Flintstones Complete chewable tablet) rosuvastatin 10 mg tablet 10 mg PO HS 09/17/23 11/23/23 History Past Med/Surg History Problem List Partial small bowel obstruction Hypothyroidism Gastrointestinal foreign body (Acute) Intra-abdominal abscess Sepsis Status post gastric surgery (Acute) Pleural effusion on left (Acute) Hyperlipidemia (Chronic) UTI (urinary tract infection) Hydronephrosis with obstructing calculus Encounter for pre-operative examination Otalgia Type 2 diabetes mellitus (Chronic) Medical History History of COVID-19 2020 > not hospitalized Seasonal allergies Abdominal pain, LLQ Cervicalgia Constipation Dyslipidemia GERD without esophagitis Hydronephrosis Hyperlipidemia Migraine headache Nephrolithiasis Hx of neck injury as a young child had a bad fall and injured her neck to the point she was unable to move at all for 1 week -> after a home visit of a doctor she has no problems since. Spinal stenosis History of skin cancer all resolved Fatty liver Nausea and vomiting after administration of anesthetic agent Surgical History History of tooth extraction History of tonsillectomy History of appendectomy History of cholecystectomy Hx of foot operation right tarsal tunnel release History of gastric bypass History of esophagogastroduodenoscopy (EGD) History of colonoscopy S/P epidural steroid injection H/O bladder repair surgery bladder tack x2 S/P laparoscopic hysterectomy with LSO S/P right knee arthroscopy Hx of radical excision of skin lesion History of cystoscopy with stone basketing Status post laser lithotripsy of ureteral calculus Family History Father Myocardial infarction Cancer Uncle Myocardial infarction Heart disease Uncle Myocardial infarction Mother Diabetes Allergies Asthma COPD (chronic obstructive pulmonary disease) Grandmother (Maternal) Diabetes Denies family history of No family history of adverse response to anesthesia Stroke Social History Smoking Status: Never smoker Second Hand Exposure: Yes (parents smoked when pt was child); Do You Dip or Chew Tobacco: No; Hx Alcohol Use: No Hx Substance Use: No Preferred Language: Nepali Communication Ability: Effective Ratchet Setter Required: No Beliefs That Will Affect Care: None marital status: Current Living Situation: Spouse current occupational status: employed 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 How many Children do You have: 2 Other Information That Helps Us Care for You: No Feels Safe at Home: Yes Safety Concerns: Feels Safe At This Time Assistive Devices: Glasses Review of Systems Review of Systems: All systems reviewed & are unremarkable except as noted in HPI & below Physical Exam Physical Exam: General: patient resting comfortably, NAD, non-toxic in appearance, AA&O x 4 Skin: warm, dry, intact, no rashes or lesions HEENT: NC/AT, PERRL, EOMI, anicteric sclera, conjunctiva without injection, external ear normal to inspection and nontender, nares patent, moist mucus membranes, dentition intact, no oropharyngeal lesions, neck supple, trachea midline, no LAD, no thyromegaly, no JVD Heart: +S1/S2, regular, no m/r/g Lungs: equal air entry bilaterally, no rales/rhonchi/wheezes Abd: +BS, soft, NT/ND, no masses/organomegaly/ascites Ext: warm, 2+ pulses in UE/LE bilaterally, no clubbing/cyanosis or edema Neuro: nonfocal, patient AA&O x 4, speech intact, no facial droop, moving all extremities on command with equal strength 5/5 Results & Data Results & Data Vital Signs (Past 12 Hours) Vital Signs Temp Pulse Pulse Resp BP BP Pulse Ox 11/23/23 21:05 93 H 11/23/23 20:43 76 16 167/75 H 97 11/23/23 17:03 36.6 C 84 18 150/82 H 98 O2 Del Method 11/23/23 21:05 11/23/23 20:43 Room Air 11/23/23 17:03 Room Air Laboratory Results Laboratory Results WBC 9.22 K/ul (4.8-10.8) 11/23/23 17:14 RBC 4.70 M/uL (4.20-5.40) 11/23/23 17:14 Hgb 14.1 g/dl (12.0-16.0) 11/23/23 17:14 Hct 40.6 % (37.0-47.0) 11/23/23 17:14 MCV 86.4 fL (80.0-100.0) 11/23/23 17:14 MCH 30.0 pg (25.0-34.0) 11/23/23 17:14 MCHC 34.7 g/dL (32.0-36.0) 11/23/23 17:14 RDW Std Deviation 37.3 fL (36.4-46.3) 11/23/23 17:14 RDW Coeff of Sayda 11.8 % (11.5-14.5) 11/23/23 17:14 Plt Count 238 K/uL (130-400) 11/23/23 17:14 MPV 10.8 fL (9.4-12.4) 11/23/23 17:14 Immature Gran % (Auto) 0.3 % 11/23/23 17:14 Neut % (Auto) 57.9 % 11/23/23 17:14 Lymph % (Auto) 29.9 % 11/23/23 17:14 [place] % (Auto) 9.7 % 11/23/23 17:14 Eos % (Auto) 1.5 % 11/23/23 17:14 Baso % (Auto) 0.7 % 11/23/23 17:14 Neut # (Auto) 5.34 K/uL (1.40-6.50) 11/23/23 17:14 Lymph # (Auto) 2.76 K/uL (1.20-3.40) 11/23/23 17:14 [place] # (Auto) 0.89 K/uL (0.11-0.59) H 11/23/23 17:14 Eos # (Auto) 0.14 K/uL (0.00-0.50) 11/23/23 17:14 Baso # (Auto) 0.06 K/uL (0.00-0.20) 11/23/23 17:14 Immature Gran # (Auto) 0.03 K/uL (0.01-0.20) 11/23/23 17:14 Sodium 140 mmol/L (136-145) 11/23/23 17:14 Potassium 3.7 mmol/L (3.5-5.1) 11/23/23 17:14 Chloride 104 mmol/L (98-107) 11/23/23 17:14 Carbon Dioxide 27 mmol/L (21-32) 11/23/23 17:14 Anion Gap 9 (3-11) 11/23/23 17:14 BUN 15 mg/dl (6-23) 11/23/23 17:14 Creatinine 0.68 mg/dl (0.6-1.2) 11/23/23 17:14 Est Cr Clr Drug Dosing 91.0 ml/min 11/23/23 17:14 Est GFR ( Amer) 112.5 ml/min 11/23/23 17:14 Est GFR (Non-Af Amer) 97.1 ml/min 11/23/23 17:14 BUN/Creatinine Ratio 22.1 (10-20) H 11/23/23 17:14 Glucose 82 mg/dl (70-99(Fasting)) 11/23/23 17:14 Calcium 9.9 mg/dl (8.6-10.3) 11/23/23 17:14 Phosphorus 4.7 mg/dl (2.5-4.9) 11/23/23 17:14 Magnesium 1.9 mg/dl (1.7-2.4) 11/23/23 17:14 Total Bilirubin 0.9 mg/dl (0.2-1.0) 11/23/23 17:14 AST 28 U/L (13-39) 11/23/23 17:14 ALT 36 U/L (7-52) 11/23/23 17:14 Alkaline Phosphatase 87 U/L (34-104) 11/23/23 17:14 Total Protein 7.7 gm/dl (6.0-8.3) 11/23/23 17:14 Albumin 4.8 gm/dl (3.4-5.0) 11/23/23 17:14 Globulin 2.9 gm/dl (2.5-4.0) 11/23/23 17:14 Albumin/Globulin Ratio 1.7 (0.9-2) 11/23/23 17:14 Lipase 20 U/L (11-82) 11/23/23 17:14 Urine Color Yellow 11/23/23 17:14 Urine Appearance Cloudy (Clear) A 11/23/23 17:14 Urine pH 5.5 (4.5-7.5) 11/23/23 17:14 Ur Specific [place] 1.008 (1.000-1.030) 11/23/23 17:14 Urine Protein Negative (Negative) 11/23/23 17:14 Urine Glucose (UA) Negative (Negative) 11/23/23 17:14 Urine Ketones Negative (Negative) 11/23/23 17:14 Urine Blood Negative (Negative) 11/23/23 17:14 Urine Nitrite Negative (Negative) 11/23/23 17:14 Urine Bilirubin Negative (Negative) 11/23/23 17:14 Urine Urobilinogen Negative (Negative) 11/23/23 17:14 Ur Leukocyte Esterase 3+ (Negative) H 11/23/23 17:14 Urine WBC (Auto) >50 /hpf (0-5) H 11/23/23 17:14 Urine RBC (Auto) 0-2 /hpf (0-2) 11/23/23 17:14 U Hyaline Cast (Auto) 3-5 /lpf (0-2) H 11/23/23 17:14 U Epithel Cells (Auto) 0-2 /hpf (0-2) 11/23/23 17:14 Urine Bacteria (Auto) None Seen (None Seen) 11/23/23 17:14 Urine Yeast Present (None Prsent) A 11/23/23 17:14 Adenovirus (PCR) Not Detected (NotDetected) 11/23/23 17:14 B. pertussis DNA (PCR) Not Detected (NotDetected) 11/23/23 17:14 B.parapertussis DNA PCR Not Detected (NotDetected) 11/23/23 17:14 C. pneumoniae DNA (PCR) Not Detected (NotDetected) 11/23/23 17:14 Coronavirus OC43 (PCR) Not Detected (NotDetected) 11/23/23 17:14 Coronavirus HKU1 (PCR) Not Detected (NotDetected) 11/23/23 17:14 Coronavirus 229E (PCR) Not Detected (NotDetected) 11/23/23 17:14 SARS-CoV-2 (PCR) Not Detected (NotDetected) 11/23/23 17:14 Coronavirus NL63 (PCR) Not Detected (NotDetected) 11/23/23 17:14 Human Metapneumovir PCR Not Detected (NotDetected) 11/23/23 17:14 Influenza Type A (PCR) Not Detected (NotDetected) 11/23/23 17:14 Influenza Type B (PCR) Not Detected (NotDetected) 11/23/23 17:14 M. pneumoniae (PCR) Not Detected (NotDetected) 11/23/23 17:14 Parainfluenza 1 (PCR) Not Detected (NotDetected) 11/23/23 17:14 Parainfluenza 2 (PCR) Not Detected (NotDetected) 11/23/23 17:14 Parainfluenza 3 (PCR) Not Detected (NotDetected) 11/23/23 17:14 Parainfluenza 4 (PCR) Not Detected (NotDetected) 11/23/23 17:14 RSV (PCR) Not Detected (NotDetected) 11/23/23 17:14 Entero/Rhino (PCR) Not Detected (NotDetected) 11/23/23 17:14 Impressions Abdomen/Pelvis CT 11/23/23 17:07 Exam(s): CT ABDOMEN + PELVIS With Contrast IV Amt: 91 ml optiray 320 EXAM: CT Abdomen and Pelvis With Intravenous Contrast CLINICAL HISTORY: Reason for exam: abdominal pain, prior gastric bypass. TECHNIQUE: Axial computed tomography images of the abdomen and pelvis with intravenous contrast. CTDI is 38 mGy and DLP is 546 mGy-cm. Automated exposure control was utilized for the study. A dose lowering technique was utilized adhering to the principles of ALARA. CONTRAST: Patient received 91 ml optiray 320 of IV contrast COMPARISON: No relevant prior studies available. FINDINGS: Lung bases: Unremarkable. No mass. No consolidation. ABDOMEN: Liver: Unremarkable. No mass. Gallbladder and bile ducts: Unremarkable. No calcified stones. No ductal dilation. Pancreas: Unremarkable. No mass. No ductal dilation. Spleen: Unremarkable. No splenomegaly. Adrenals: Unremarkable. No mass. Kidneys and ureters: 1.2 cm nonobstructing stone seen in the left kidney. 1.1 cm nonobstructing stone seen in the right kidney.. No solid mass. No hydronephrosis. Stomach and bowel: There is status post gastric bypass surgery. No mucosal thickening. No there is mild prominence of the small bowel distal to the gastrojejunostomy anastomosis site with transition point at the Yanet-en-Y anastomosis site. PELVIS: Appendix: No findings to suggest acute appendicitis. Bladder: Unremarkable. No mass. Reproductive: Unremarkable as visualized. ABDOMEN and PELVIS: Intraperitoneal space: Unremarkable. No free air. No significant fluid collection. Bones/joints: No acute fracture. No dislocation. L4/5 and L5/S1 degenerative disc disease with posterior disc osteophyte complex causing mild spinal canal stenosis. Vasculature: Unremarkable. No abdominal aortic aneurysm. Lymph nodes: Unremarkable. No enlarged lymph nodes. IMPRESSION: Mildly dilated proximal jejunum, suggestive of partial small bowel obstruction Bilateral nonobstructing nephrolithiasis. Electronically signed by: Rasheed Garcia MD 11/23/23 20:[address] 11/23/23 18:11 Exam(s): CT HEAD Without Contrast EXAM: CT Head Without Intravenous Contrast CLINICAL HISTORY: Reason for exam: headache. TECHNIQUE: Axial computed tomography images of the head/brain without intravenous contrast. CTDI is 38 mGy and DLP is 546 mGy-cm. Automated exposure control was utilized for the study. A dose lowering technique was utilized adhering to the principles of ALARA. COMPARISON: No relevant prior studies available. FINDINGS: Brain: Unremarkable. No hemorrhage. No significant white matter disease. No edema. Ventricles: Unremarkable. No ventriculomegaly. Bones/joints: Unremarkable. No acute fracture. Soft tissues: Unremarkable. Sinuses: Unremarkable as visualized. No acute sinusitis. Mastoid air cells: Unremarkable as visualized. No mastoid effusion. IMPRESSION: No acute intracranial abnormality Electronically signed by: Rasheed Garcia MD 11/23/23 19:55 PM Code Status & VTE Plan VTE Prophylaxis Plan VTE Prophylaxis will be ordered: Yes PG Care Time/CCT Total # of Minutes Spent Total Time Spent with Patient: Total time spent is greater than 50% in coordination of care (as documented) at patient's floor/unit and/or counseling patient: Coding Level of Care Code 10440 INT INP/OBS CARE 2/55MIN Diagnoses Partial small bowel obstruction K56.600 Migraine headache G43.909
--- NOTE | 2023-11-23 22:37 | Surgery Consultation ---
<Statement entered by Cisco Leary, - 11/24/23 08:22> This case was discussed with the surgical PA, I agree with this plan Date of Consultation November 23, 2023 Assessment & Plan (1) Partial small bowel obstruction: The patient is being admitted on the hospitalist service. From surgery perspective we recommend the following: Implement n.p.o. status Hydrate her with IV fluids supplementing electrolytes as needed Follow serial labs Provide antiemetics as needed By CT scan the patient has a partial small bowel obstruction but at the time of my exam her abdomen was entirely benign and she is nontoxic-appearing. She is normotensive without fever, tachycardia or leukocytosis Given the above I feel conservative management as noted above is warranted without the need for any surgical intervention The patient has not had any emesis in nearly 11 hours. Given this fact and the fact that her abdominal exam is benign I do not feel we need to place an NG tube but this may need to be reconsidered if she has deterioration of her abdominal exam or has further emesis Additional recommendations will be forthcoming based on her clinical course as it unfolds History of Present Illness Reason for Consultation: Partial small bowel obstruction History of Present Illness Patient notes that she had a history of gastric bypass in 2011 and ultimately had a revision of her gastric bypass in March 2023 [facility] (she notes that there is an issue with her stomach pouch requiring revision). Patient notes that she presented to the emergency department secondary to stomach pain. She has had some generalized stomach pain without radiation approximately 1 week. In addition she has had some intermittent headaches. She notes that she is generally fatigued and had some nausea and vomiting today at approximately 11:30 AM. She says she has not had any further emesis since that time. She also notes she had a normal bowel movement today. She denies any fevers, shakes, or chills. She notes that she has never had a small bowel obstruction in the past. Also of note, the patient notes that she was previously taking Ozempic and is currently taking Mounjaro which she is trying to be weaned off of. S this is a 57-year-old female who presented to the hospital secondary to headache and some vague abdominal pain. ana arrival to hospital patient has had labs and imaging which independent reviewed. CT scan of the head showed no acute intracranial process. CT scan abdomen pelvis showed the patient had some prominence of the small bowel distal to the gastrojejunostomy anastomosis with a transition point near the anastomosis site. Interpreting radiologist felt that this was suggestive of a partial small bowel obstruction. Labs included CBC her white blood cell count, hemoglobin, hematocrit, and platelet count are normal. Chemistry profile showed sodium and potassium as well as the BUN and creatinine were normal. There is no elevation of LFTs or lipase. Urinalysis showed cloudy urine with 3+ leukocyte Estrace and pyuria with greater than 50 white blood cells per high-power field. This testing was negative for nitrites and bacteria. She did have a bio fire study performed and all viruses tested for were negative. At the time of my interview she was resting comfortably in bed and she was in no distress. Allergies Allergy/AdvReac Type Severity Reaction Status Date / Time clindamycin Allergy Intermediate Fatigued Verified 09/17/23 08:50 codeine AdvReac Severe Migraine Verified 09/17/23 08:50 levofloxacin [From Levaquin] AdvReac Severe Dizziness Verified 09/17/23 08:50 Home Medications Medication Instructions Recorded Confirmed Type cyclobenzaprine 10 mg tablet 10 mg PO DAILY PRN Muscle 05/18/19 11/23/23 History Spasm/migraines sumatriptan succinate 50 mg tablet 50 mg PO DAILY PRN Migraine 05/18/19 11/23/23 History (Imitrex) Headache lancets (Accu-Chek Fastclix Lancet #50 ea 05/20/19 11/29/20 Rx Drum) cyanocobalamin (vitamin B-12) 1,000 mcg IM MONTHLY 12/22/19 11/23/23 History 1,000 mcg/mL injection solution ergocalciferol (vitamin D2) 1,250 50,000 unit PO 2XWK 12/22/19 11/23/23 History mcg (50,000 unit) capsule (Vitamin D2) blood sugar diagnostic (Accu-Chek 02/19/20 11/29/20 History Guide test strips) pen needle, diabetic 32 gauge x 02/19/20 11/29/20 History " (BD Ultra-Fine Aaliyah Pen Needle) ondansetron 4 mg disintegrating 4 mg PO Q6 PRN nausea and vomiting 05/31/22 09/17/23 Rx tablet #14 tabs tirzepatide 5 mg/0.5 mL 5 mg subcut WK 04/23/23 11/23/23 History subcutaneous pen injector (Neena) clobetasol 0.05 % topical ointment 0.5 g topical HS 09/17/23 11/23/23 History levothyroxine 25 mcg tablet 25 mcg PO QAM 09/17/23 11/23/23 History metformin 500 mg tablet 500 mg PO BID 09/17/23 11/23/23 History pantoprazole 40 mg tablet,delayed 40 mg PO QAM 09/17/23 09/17/23 History release pediatric multivitamin no.76 2 tab PO QAM 09/17/23 11/23/23 History (Flintstones Complete chewable tablet) rosuvastatin 10 mg tablet 10 mg PO HS 09/17/23 11/23/23 History Patient History Medical History History of COVID-19 2020 > not hospitalized Seasonal allergies Abdominal pain, LLQ Cervicalgia Constipation Dyslipidemia GERD without esophagitis Hydronephrosis Hyperlipidemia Migraine headache Nephrolithiasis Hx of neck injury as a young child had a bad fall and injured her neck to the point she was unable to move at all for 1 week -> after a home visit of a doctor she has no problems since. Spinal stenosis History of skin cancer all resolved Fatty liver Nausea and vomiting after administration of anesthetic agent Surgical History History of tooth extraction History of tonsillectomy History of appendectomy History of cholecystectomy Hx of foot operation right tarsal tunnel release History of gastric bypass History of esophagogastroduodenoscopy (EGD) History of colonoscopy S/P epidural steroid injection H/O bladder repair surgery bladder tack x2 S/P laparoscopic hysterectomy with LSO S/P right knee arthroscopy Hx of radical excision of skin lesion History of cystoscopy with stone basketing Status post laser lithotripsy of ureteral calculus Family History Father Myocardial infarction Cancer Uncle Myocardial infarction Heart disease Uncle Myocardial infarction Mother Diabetes Allergies Asthma COPD (chronic obstructive pulmonary disease) Grandmother (Maternal) Diabetes Denies family history of No family history of adverse response to anesthesia Stroke Social History Smoking Status: Never smoker Second Hand Exposure: Yes (parents smoked when pt was child); Do You Dip or Chew Tobacco: No; Hx Alcohol Use: No Hx Substance Use: No Preferred Language: Grenadian Communication Ability: Effective Terrazzo Finisher Helper Required: No Beliefs That Will Affect Care: None marital status: Current Living Situation: Spouse current occupational status: employed 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 It was completely benign and nontender to palpation. She had several well-healed laparoscopic incisions. Musculoskeletal: No calf tenderness Skin: no rashes Neurologic: moves all extremities Psychiatric: A+Ox3, euthymic affect Results & Data Vital Signs (Past 12 Hours) Vital Signs Temp Pulse Pulse Resp BP BP Pulse Ox 11/23/23 21:59 85 18 168/82 H 90 11/23/23 21:05 93 H 11/23/23 20:43 76 16 167/75 H 97 11/23/23 17:03 36.6 C 84 18 150/82 H 98 O2 Del Method 11/23/23 21:59 Room Air 11/23/23 21:05 11/23/23 20:43 Room Air 11/23/23 17:03 Room Air PG Care Time/CCT Total # of Minutes Spent Total Time Spent with Patient: Total time spent is greater than 50% in coordination of care (as documented) at patient's floor/unit and/or counseling patient: Coding Level of Care Code 75807 IN/OBS CONSULT LVL 5,80M Diagnoses Partial small bowel obstruction K56.600
[2023-11-23] MEDS ORDERED: GLUCOSE 10 TAB/TUBE PO PRN (22:49)
[2023-11-23] MEDS ORDERED: GLUCOSE 40% GEL 15 GM TUBE PO PRN (22:49)
[2023-11-23] MEDS ORDERED: ONDANSETRON INJ 2 MG/ML 2 ML VIAL IV PRN (22:49)
[2023-11-23] MEDS ORDERED: DEXTROSE 50% 50 ML SYRINGE IV PRN (22:49)
[2023-11-23] MEDS ORDERED: MoRPHine SULFATE 2 MG/ML CARP IV PRN ×2 (22:49)
[2023-11-23] MEDS ORDERED: GLUCAGON FOR INJ 1 MG VIAL SQ PRN (22:49)
[2023-11-23] MEDS ORDERED: CARBOHYDRATES FOR HYPOGLYCEMIA PO PRN (22:49)
[2023-11-23 23:13] LABS: Magnesium 1.9 mg/dl (1.7-2.4); Phosphorus 4.7 mg/dl (2.5-4.9)
[2023-11-23] MEDS: LACTATED RINGER'S 1,000 ML IV SCH (23:44)
[2023-11-24] MEDS: INSULIN ASPART PER UNIT CHARGE SC SCH ×4 (05:44→17:18)
[2023-11-24] MEDS: LEVOTHYROXINE SODIUM 25 MCG TABLET PO SCH (05:45)
[2023-11-24] MEDS: ACETAMINOPHEN 325 MG TAB PO PRN (05:46)
[2023-11-24 07:00] LABS: Hematocrit (blood only) 35.5 % (37.0-47.0); Hemoglobin 12.1 g/dl (12.0-16.0); Mean Corpuscular Hgb Conc 34.1 g/dL (32.0-36.0); Mean Corpuscular Volume 87.9 fL (80.0-100.0); Platelet Count 167 K/uL (130-400); RDW Coefficient of Variation 11.9 % (11.5-14.5); RDW Standard Deviation 38.5 fL (36.4-46.3); Red Blood Count 4.04 M/uL (4.20-5.40); White Blood Count 6.07 K/ul (4.8-10.8)
[2023-11-24 07:07] LABS: BUN Creatinine Ratio 16.4 (10-20); Calcium 8.9 mg/dl (8.6-10.3); Creatinine Clr Calc Pharmacy 112.8 ml/min; Est GFR (African American) 120.7 ml/min; Est GFR (Non-African American) 104.1 ml/min; Potassium 3.7 mmol/L (3.5-5.1)
--- OUTSIDE RECORDS SUMMARY | 2023-11-24 07:08 | External Medical Summary | Continuity of Care Document ---
Author Name Unknown Organization [facility] er, Address [address] [place] [address] Phone [phone] Problems Active Problems Provider Date Gastroesophageal reflux [...] Social History Type Date Description Comments Sex Female Tobacco Use Reviewed: 04/07/22 Never Smoked Cigarette s Tobacco Use Reviewed: 04/07/22 Never Smoked Cigars Tobacco Use Reviewed: 04/07/22 Never Smoked A Pipe Smoking Status Reviewed: 10/11/23 Never Smoked A Pipe Smokeless Tobacco 04/07/2022 Never Used Smokeless To bacco ETOH Use Rarely consumes alcohol Recreational Drug Use Denies Drug Use Allergies and adverse reactions Active Allergies Criticality Reaction | Severity Comments Date Levaquin Unable to assess criticality 08/10/2017 Codeine Unable to assess criticality Headache 04/27/2019 Clindamyocin Unable to assess criticality 03/31/2020 Inactive Allergies Penicillins Unable to assess criticality 02/24/2017 Medications Active Medications SIG Qnty Indications Order ing Provider Date Fjpzcjxprf6NG/10ML Suspension 10ml by mouth three times a day prior to meals and once before bed as needed 1260ml Millicent Johnston MD 10/11/2023 Zphachtnqy17jd/5ML Suspension Rec 5mL twice daily 450ml Millicent Johnston MD 10/11/2023 Metformin [id number] Tablets take 1 tablet by mouth twice daily 180tabs E11.65 Millicent Johnston MD 06/09/2023 Levothyroxine Cjtlum13icq Tablets 1 by mouth every day 90tabs E03.9 Millicent Johnston MD 06/09/2023 Cyclobenzaprine SQO13va Tablets Take 1 Tablet By Mouth Once Daily as Needed 30tabs Millicent Johnston MD 10/06/2022 Freestyle Lite TestStrips Use to check up to three times daily Dx: E11.9 300units Millicent Johnston MD 04/08/2022 BD Pen Needle/Aaliyah/Ultra -Fine/32G X 4mm32G X 4 mm Misc use with insulin as advised Dx; E11.9 100units Millicent Johnston MD 03/31/2021 Sqodfxxmsrxddh3511lot/M L Solution inject 1ml Im once monthly 3units D51.9 Millicent Johnston MD 02/21/2020 Vitamin D (Ergocalciferol)1.25mg (65193 Ut) Capsules take 2 capsules by mouth once a week 24caps E55.9 Millicent Johnston MD 08/03/2019 Rosuvastatin Ranxuwc71wj Tablets 1 by mouth every day 90tabs E78.2 Millicent Johnston MD 07/09/2018 Xdcrcsy346yl Tablets 1 tab by mouth as needed migraine onset; can be repeated 2 hours later 9tabs Frederic Mcgee JR, MD Freestyle LancetsMisc check blood sugar up to three times a day Dx E11.65 E11.65 Unknown Freestyle TestStrips use to check sugars up to three times daily Dx E11.65 E11.65 Unknown Flintstones Tqkmwcll85ve Chewtabs 2 by mouth every day Unknown Pantoprazole Uaebja89jz Tablets DR Unknown History Medications Svftzqwons04ha Tablets 1 by mouth twice daily 180tabs Millicent Johnston MD 10/11/2023 - 10/11/2023 Medications Administered in Office Medication SIG Qnty Indications Ordering Provider Date Injection Vitamin B-12 Up To 1000 mcgInjection Lab - [place] 2023 Injection Vitamin B-12 Up To 1000 mcgInjection Ramses brown PA-C 10/11/2023 Injection Vitamin B-12 Up To 1000 mcgInjection Ramsesgauri brown PA-C 08/09/2023 Injection Vitamin B-12 Up To 1000 mcgInjection Ramsesgauri brown PA-C 06/09/2023 Injection Vitamin B-12 Up To 1000 mcgInjection Millicent Johnston MD 09/2023 Injection Vitamin B-12 Up To 1000 mcgInjection Ramses DMary brown PA-C 04/02/2023 Injection Ketorolac Trometha mine Per 15 mg/.5cc (Toradol)Injection Ramses fatima PA-C 03/12/2023 Injection Vitamin B-12 Up To 1000 mcgInjection Millicent Johnston MD 02/06 Injection Vitamin B-12 Up To 1000 mcgInjection Ramses DMary brown PA-C 02/05/2023 Injection Vitamin B-12 Up To 1000 mcgInjection Ramses DMary brown PA-C 01/04/2023 Injection Vitamin B-12 Up To 1000 mcgInjection Ramses DMary brown PA-C 08/13/2022 Injection Vitamin B-12 Up To 1000 mcgInjection Ramses DMary brown PA-C 07/15/2022 Injection Vitamin B-12 Up To 1000 mcgInjection Millicent Johnston MD 05/07 Injection Vitamin B-12 Up To 1000 mcgInjection Ramses D. Margarita brown PA-C 05/06/2022 Injection Vitamin B-12 Up To 1000 mcgInjection Ramses D. Margarita brown PA-C 04/07/2022 Injection Vitamin B-12 Up To 1000 mcgInjection Ramses D. Margarita brown PA-C 01/28/2022 Injection Vitamin B-12 Up To 1000 mcgInjection Ramses D. Margarita brown PA-C 12/29/2021 Injection Vitamin B-12 Up To 1000 mcgInjection Meme MMary ompson, RAIL SIGNAL MECHANIC 12/05/2021 Injection Vitamin B-12 Up To 1000 mcgInjection Meme MMary ompson, RAIL SIGNAL MECHANIC 10/27/2021 Injection Vitamin B-12 Up To [...] B-12 Up To 1000 mcgInjection Lab - [place] 2020 Injection Dexamethasone Sodi um Phosphate, 1 MGInjection Ramses D. MADONNA Ng 12/02/2020 Injection Methylprednisolone Acetate 40 MGInjection Ramses D. MADONNA Ng 12/02/2020 Injection Vitamin B-12 Cyanocobalamin To 1000 mcgInjection Ramses D. Johanna holden PA-C 11/25/2020 Injection Kenalog 10 MG NDC [id number] Ramses D. L MADONNA moffett 10/11/2020 Injection Ketorolac Trometha mine Per 15 mg/.5cc (Toradol)Injection Ramses D. Minesh fatima PA-C 10/11/2020 Injection Dexamethasone Sodi um Phosphate, 1 MGInjection Ramses D. MADONNA Ng 10/11/2020 Injection Vitamin B-12 Cyanocobalamin To 1000 mcgInjection Meme smith, [employer]IL SIGNAL MECH[employer]IC 09/26/2020 Injection Vitamin B-12 Cyanocobalamin To 1000 mcgInjection Ramses D. Johanna holden PA-C 08/30/2020 Injection Methylprednisolone Acetate 40 MGInjection Ramses D. MADONNA Ng 07/30/2020 Injection Vitamin B-12 Cyanocobalamin To 1000 mcgInjection Ramses D. Johanna holden PA-C 07/26/2020 Injection Vitamin B-12 Up To 1000 mcgInjection Lab - [place] 2020 Injection Vitamin B-12 Up To 1000 mcgInjection Meme marshall, RAIL SIGNAL MECHANIC 05/02/2020 Injection Vitamin B-12 Up To [...] Injection Vitamin B-12 Up To 1000 mcgInjection Armses D. Margarita brown PA-C 10/30/2019 Injection Vitamin B-12 Up To 1000 mcgInjection Ramses D. Margarita brown PA-C 09/28/2019 Injection Vitamin B-12 Up To 1000 mcgInjection Ramses brown, MADONNA 08/24/2019 Injection Vitamin B-12 Up To 1000 mcgInjection Ramses D. Margarita brown, MADONNA 08/18/2019 Injection Vitamin B-12 Up To 1000 mcgInjection Ramses Shivam brown, MADONNA 08/11/2019 Injection Ketorolac Trometha mine Per 15 mg/.5cc (Toradol)Injection Ramses fatima PA-C 08/10/2017 Injection Dexamethasone Sodi um Phosphate, 1 MGInjection Ramses Ng PA-C 08/10/2017 Immunizations CPT Code Status Date Vaccine Lot # [id number] Given 12/09/2021 Influenza Virus Vaccine, Quadrivalent (Cciiv4), Derived From Cell [id number] U-FLU Given 12/09/2021 Influenza,Unspecified as1 [id number] [id number] Given 03/04/2021 Moderna Sars-Co v-2 (Cov-19) vacc,100 mcg/ 0.5 mL 12Y+EMR Doc Only [id number] Given 01/29/2021 Moderna Sars-Co v-2 (Cov-19) vacc,100 mcg/ 0.5 mL 12Y+EMR Doc Only [id number] U-FLU Given 01/13/2021 Influenza,Unspecified 69142 Given 01/13/2021 Influenza Virus Vaccine, Quadrivalent (Cciiv4), Derived From Cell [id number] U-FLU Given 12/11/2019 Influenza,Unspecified 47801 Given 12/11/2019 Influenza Virus Vaccine, Quadrivalent (Cciiv4), Derived From 6 Given 01/09/2019 Influenza Virus Vaccine, Quadrivalent (Cciiv4), Derived From Cell [id number] U-FLU Given 01/09/2019 Influenza,Unspecified U-FLU Given 01/05/2017 Influenza,Unspecified U-FLU Given 03/16/2012 Influenza,Unspecified 18827 Given 04/18/1999 TB Intradermal Test U-POLIO Given 01/25/1978 Polio,Unspecified 31932 Given 01/25/1978 Poliovirus Vaccine, (IPV) [id number] Given 06/16/1972 MMR Vaccine U-DTAP Given 09/20/1967 DTaP,Unspecified 21523 Given 09/20/1967 APmX-Sav-EQA (Pentacel) V accine 11442 Refused 09/26/2020 Moderna Sars-Co v-2 (Cov-19) vacc,100 mcg/ 0.5 mL 12Y+EMR Doc Only [id number] Refused 08/03/2019 Pneumococcal Vaccine/Pneu movax 23 [id number] Refused 08/03/2019 Shingrix Vital Signs Date Vital Result Comment 10/11/2023 2:25pm BP Systolic 122 mmHg BP Diastolic 80 mmHg Body Temperature 97.3 F Heart Rate 80 /min Respiratory Rate 15 /min Weight 175.12 lb Weight 79.437 kg Height 64 inches 5'4" BMI (Body Mass Index) 30.1 kg/m2 O2 % BldC Oximetry 96 % [place] Body Weight 120 lb 06/09/2023 2:00pm BP Systolic 130 mmHg BP Diastolic 78 mmHg Body Temperature 97.4 F Heart Rate 98 /min Respiratory Rate 14 /min Weight 206.00 lb Weight 93.442 kg Height 64 inches 5'4" BMI (Body Mass Index) 35.4 kg/m2 O2 % BldC Oximetry 95 % [place] Body Weight 120 lb Results Test Acquired Date Facility Test Result H/L Range Note Microalbumin Urine 09/06/2023 [facility]. [address] [place], [place] [id number] [phone] Urine Creat 112 mg/dL Comment Microalbumin 7.2 mg/dL High 0.0-1.8 1 ug/mgCREATININ E 64 ug/mg High 0-29 Urinalysis,Cul t If Indicated 09/06/2023 [facility]. [address] [place], [place] [id number] [phone] RFLX Culture COMMENT Urinalysis 09/06/2023 [facility]. [address] [place] [address] Color COMMENT 2 Appearance COMMENT Clear Spec.Grav. COMMENT 1.005-1.0 25 Leukocytes COMMENT Negative Nitrite COMMENT Negative PH COMMENT 6.0-7.5 Protein COMMENT Negative Urine Glucose COMMENT Negative Ketone COMMENT Negative Urobilinogen COMMENT E.U./DL Normal Bilirubin COMMENT Negative Blood COMMENT Negative WBC-U COMMENT /HPF 0-5/HPF RBC-U COMMENT /HPF 0-5/HPF Bacteria COMMENT None Seen Squamous COMMENT /HPF 0-5/HPF Manual Diff 09/06/2023 [facility]. [address] [place] [address] Seg 65 45-75 Lymph 29 20-45 [place] 4 0-10 Eosin 2 0-6 Baso 0 0-2 CBC No Diff 09/06/2023 [facility]. [address] [place] [address] [phone] WBC 7.6 10^3/M3 3.1-9.2 RBC 4.68 10^6/M3 3.70-5.50 HGB 13.6 GR/DL 11.5-16.1 HCT 41.6 % 34.5-47.8 MCV 89.0 CUMICR 82.6-95.8 MCH 29.1 PICOGR 27.9-32.9 MCHC 32.7 % 32.6-35.4 RDW 13.5 % 11.4-14.6 PLT 221 10^3/M3 140-350 MPV 9.4 CUMICR 7.0-10.6 Microalbumin Urine 09/06/2023 [facility]. [address] [place] [address] [phone] Urine Creat COMMENT mg/dL Comment Microalbumin COMMENT mg/dL 0.0-1 .8 3 ug/mgCREATININ E COMMENT ug/mg Low 0-29 4 Laboratory test finding 09/06/2023 [facility]. [address] [place], [place] [id number] Magnesium 1.8 mg/dL 1.7-2.8 VB12 >1500 pg/mL High 230-1050 5 Vitd-25Oh 77 ng/mL 30-100 Phosphorus 4.3 mg/dL 2.5-4.8 Uric Acid 4.6 mg/dL 2.5-7.5 Hba1c 09/06/2023 [facility]. [address] [place] [address] [phone] A1c 5.30 % 4.70-6.50 6 T3/T4/TSH 09/06/2023 [facility]. [address] [place] [address] T3 1.5 ng/mL 0.7-1.7 T4 12.8 g /dL High 4.0-11.0 TSH 1.15 uIU/mL 0.50-6.00 Lipid 09/06/2023 [facility]. [address] [place] [address] Cholesterol 133 mg/dL 0-200 7 Triglyceride 146 mg/dL 0-150 8 HDLD 39 mg/dL See Comment 9 Measured LDL 75 mg/dL 0-130 10 Calc VLDL 29.2 mg/dL See Comment 11 Chol/HDL 3.4 RATIO See Comment 12 Non-HDL 94 mg/dL See Comment 13 Comp. Met 09/06/2023 [facility]. [address] [place] [address] Glucose 100 mg/dL 70-110 BUN 14 mg/dL 6-25 Creatinine 0.7 mg/dL 0.5-1.2 Sodium 143 mEq/L 135-145 Potassium 4.0 mEq/L 3.5-5.0 Chloride 104 mEq/L 95-107 Co-2 27 mEq/L 24-31 Alk Phos 79 IU/L 43-122 Alt(SGPT) 34 IU/L 10-40 Ast(Sgot) 28 IU/L 3-42 T.Bilirubin 0.7 mg/dL 0.1-1.3 Calcium 9.9 mg/dL 8.5-10.6 Tot.Protein 6.8 g/dL 5.8-8.0 Albumin 4.2 g/dL 3.0-5.2 Globulin 2.6 g/dL 2.0-3.4 GFR 92 ML/MIN/1.73SQM >60 Urine Culture 09/06/2023 [facility]. [address] [place], [place] [id number] Urine Source URINE Urc Comment INSIGNIFICANT GR <SEE NOTE> 14 Urinalysis 09/06/2023 [facility]. [address] [place], [place] [id number] Color YELLOW Appearance CLOUDY Abnormal Clear Spec.Grav. 1.018 1.005-1.0 25 Leukocytes LARGE Abnormal Negative Nitrite NEGATIVE Negative PH 5.5 Low 6.0-7.5 Protein TRACE Abnormal Negative Urine Glucose NEGATIVE Negative Ketone NEGATIVE Negative Urobilinogen NORMAL E.U./DL Norm al Bilirubin NEGATIVE Negative Blood NEGATIVE Negative WBC-U TNTC /HPF Abnormal 0-5/HPF RBC-U NONE SEEN /HPF 0-5/HPF Bacteria TRACE None Seen Squamous 0-2 /HPF 0-5/HPF Caox Crystal 1+ /HPF Abnormal Not Present Budding Yeast PRESENT Abnormal None Seen Urinalysis,Cul t If Indicated 09/06/2023 [facility]. [address] [place] [address] [phone] RFLX Culture YES Comp. Met 06/02/2023 [facility]. [address] [place], [place] [id number] Glucose 82 mg/dL 70-110 BUN 12 mg/dL 6-25 Creatinine 0.5 mg/dL 0.5-1.2 Sodium 143 mEq/L 135-145 Potassium 3.8 mEq/L 3.5-5.0 Chloride 103 mEq/L 95-107 Co-2 23 mEq/L Low 24-31 Alk Phos 67 IU/L 43-122 Alt(SGPT) 48 IU/L High 10-40 Ast(Sgot) 35 IU/L 3-42 T.Bilirubin 0.5 mg/dL 0.1-1.3 Calcium 9.3 mg/dL 8.5-10.6 Tot.Protein 6.8 g/dL 5.8-8.0 Albumin 3.8 g/dL 3.0-5.2 Globulin 3.0 g/dL 2.0-3.4 GFR 135 ML/MIN/1.73SQM >60 Lipid 06/02/2023 [facility]. [address] [place], [place] [id number] Cholesterol 151 mg/dL 0-200 15 Triglyceride 181 mg/dL High 0-150 1 6 HDLD 33 mg/dL See Comment 17 Measured LDL 96 mg/dL 0-130 18 Calc VLDL 36.2 mg/dL See Comment 19 Chol/HDL 4.6 RATIO See Comment 20 Non-HDL 118 mg/dL See Comment 21 T3/T4/TSH 06/02/2023 [facility]. [address] [place], [place] [id number] T3 1.4 ng/mL 0.7-1.7 T4 14.6 g /dL High 4.0-11.0 TSH 1.02 uIU/mL 0.50-6.00 Hba1c 06/02/2023 [facility]. [address] [place] [address] A1c 5.50 % 4.70-6.50 22 CBC W/Diff 06/02/2023 [facility]. [address] [place] [address] WBC 9.8 10^3/M3 High 3.1-9.2 RBC 4.60 10^6/M3 3.70-5.50 HGB 13.6 GR/DL 11.5-16.1 HCT 41.1 % 34.5-47.8 MCV 89.4 CUMICR 82.6-95.8 MCH 29.7 PICOGR 27.9-32.9 MCHC 33.2 % 32.6-35.4 RDW 14.6 % 11.4-14.6 PLT 228 10^3/M3 140-350 MPV 10.0 CUMICR 7.0-10.6 %Neut 62.6 % 40.0-75.0 %Lymph 25.8 % 17.0-45.0 %Reno 9.0 % 1.0-11.0 %Eos 1.6 % 0.0-6.0 %Baso 1.0 % 0.0-2.0 #Neut 6.2 10^3/M3 1.5-8.0 #Lymph 2.5 10^3/M3 0.8-3.2 #Reno 0.9 10^3/M3 High 0.0-0.8 #Eos 0.2 10^3/m3 0.0-0.4 #Baso 0.1 10^3/m3 0.0-0.2 Laboratory test finding 06/02/2023 [facility]. [address] [place] [address] Magnesium 1.5 mg/dL Low 1.7-2.8 VB12 903 pg/mL 230-1050 Vitd-25Oh 72 ng/mL 30-100 Phosphorus 3.6 mg/dL 2.5-4.8 Uric Acid 7.2 mg/dL 2.5-7.5 Urinalysis,Cul t If Indicated 06/02/2023 [facility]. [address] [place] [address] RFLX Culture COMMENT Microalbumin Urine 06/02/2023 [facility]. [address] [place] [address] Urine Creat COMMENT mg/dL Comment Microalbumin COMMENT mg/dL 0.0-1 .8 23 ug/mgCREATININ E COMMENT ug/mg Low 0-29 24 Urinalysis 06/02/2023 [facility]. [address] [place] [address] Color COMMENT 25 Appearance COMMENT Clear Spec.Grav. COMMENT 1.005-1.0 25 Leukocytes COMMENT Negative Nitrite COMMENT Negative PH COMMENT 6.0-7.5 Protein COMMENT Negative Urine Glucose COMMENT Negative Ketone COMMENT Negative Urobilinogen COMMENT E.U./DL Normal Bilirubin COMMENT Negative Blood COMMENT Negative WBC-U COMMENT /HPF 0-5/HPF RBC-U COMMENT /HPF 0-5/HPF Bacteria COMMENT None Seen Squamous COMMENT /HPF 0-5/HPF 1 *[employer] USES MICROALBUMIN/CREATINE RATIO : *<30 ug/mg CREATININE IS CLASSIFIED NORMAL *30-300 ug/mg CREATININE IS CLASSIFIED CLINICAL MICROALBUMINURIA *>300 ug/mg CREATININE IS CLASSIFIED CLINICAL ALBUMINURIA CLASSIFICATION OF A PATIENT SHOULD BE BASED ON TWO OF THREE ABNORMAL RESULTS COLLECTED WITHIN A 3 TO 6 MONTH TIME FRAME* 2 ORDER PLACED, PER DOCUMENTATION (PER COLORED PAPER) SPECIMEN FOR TESTING NOT ACQUIRED TL 3 *[employer] USES MICROALBUMIN/CREATINE RATIO : *<30 ug/mg CREATININE IS CLASSIFIED NORMAL *30-300 ug/mg CREATININE IS CLASSIFIED CLINICAL MICROALBUMINURIA *>300 ug/mg CREATININE IS CLASSIFIED CLINICAL ALBUMINURIA CLASSIFICATION OF A PATIENT SHOULD BE BASED ON TWO OF THREE ABNORMAL RESULTS COLLECTED WITHIN A 3 TO 6 MONTH TIME FRAME* 4 CANNOT CALCULATE RATIO WHEN MALB < 0.7 5 B12 COMMENT SERUM B12 LEVELS >1500 MG/DL ARE NOT DILUTED AND REANALYZED. ELEVATED B12 LEVELS ARE NOT CONSIDERED TOXIC. 6 MEAN GLUCOSE IN mg/d L/A1c% POOR CONTROL FAIR CONTROL GOOD CONTROL EXCELLENT CONTROL 360-14 210-9 180-8 120-6 330-13 150-7 90-5 300-12 270-11 240-10 7 CHOLESTEROL Less than 200mg/dl Low risk 201-239 mg/dl Borderline risk Equal to or greater 240mg/dl High risk 8 TRIGLYCERIDES Less than 150mg/dl Normal 150-199mg/dl Borderline 200-499mg/dl High Greater than 500mg/dl Very High 9 HDL <40mg/dl Elevated Risk 41-59mg/dl Risk >=60mg/dl Least Risk 10 LDL <100mg/dl Optimal 100-129mg/dl Near Optimal 130-159mg/dl Borderline High 160-189mg/dl High >=190 Very High 11 VLDL Less than 30mg/dl Normal 12 CHOL/HDL <4.0 Optimal 4.0-5.0 Borderline >6.0 High Risk 13 NON-HDL 30mg/dl higher than LDL Target 14 INSIGNIFICANT GROWTH 15 CHOLESTEROL Less than 200mg/dl Low risk 201-239 mg/dl Borderline risk Equal to or greater 240mg/dl High risk 16 TRIGLYCERIDES Less than 150mg/dl Normal 150-199mg/dl Borderline 200-499mg/dl High Greater than 500mg/dl Very High 17 HDL <40mg/dl Elevated Risk 41-59mg/dl Risk >=60mg/dl Least Risk 18 LDL <100mg/dl Optimal 100-129mg/dl Near Optimal 130-159mg/dl Borderline High 160-189mg/dl High >=190 Very High 19 VLDL Less than 30mg/dl Normal 20 CHOL/HDL <4.0 Optimal 4.0-5.0 Borderline >6.0 High Risk 21 NON-HDL 30mg/dl higher than LDL Target 22 MEAN GLUCOSE IN mg/d L/A1c% POOR CONTROL FAIR CONTROL GOOD CONTROL EXCELLENT CONTROL 360-14 210-9 180-8 120-6 330-13 150-7 90-5 300-12 270-11 240-10 23 *[employer] USES MICROALBUMIN/CREATINE RATIO : *<30 ug/mg CREATININE IS CLASSIFIED NORMAL *30-300 ug/mg CREATININE IS CLASSIFIED CLINICAL MICROALBUMINURIA *>300 ug/mg CREATININE IS CLASSIFIED CLINICAL ALBUMINURIA CLASSIFICATION OF A PATIENT SHOULD BE BASED ON TWO OF THREE ABNORMAL RESULTS COLLECTED WITHIN A 3 TO 6 MONTH TIME FRAME* 24 CANNOT CALCULATE RATIO WHEN MALB < 0.7 25 ORDER PLACED, PER DOCUMENTATION (PER COLORED PAPER) SPECIMEN FOR TESTING NOT ACQUIRED TL Procedures Date Code Description Status 11/10/2023 78227 Inj Subcutaneous Or Intramus cular Completed 11/10/2023 J3420 Injection Vitamin B-12 Up To 1000 mcg Completed 10/11/2023 J3420 Injection Vitamin B-12 Up To 1000 mcg Completed 10/11/2023 41585 Inj Subcutaneous Or Intramus cular Completed 10/11/2023 3079F PVRP Diastolic BP 80-89 MMHG Completed 10/11/2023 3074F PVRP Systolic BP <130 mmHg C ompleted 10/11/2023 3044F PVRP HGB-A1c <7.0% Completed 09/06/2023 79736 Venipuncture Routine [facility] ed 08/09/2023 55935 Inj Subcutaneous Or Intramus cular Completed 08/09/2023 J3420 Injection Vitamin B-12 Up To 1000 mcg Completed 06/09/2023 J3420 Injection Vitamin B-12 Up To 1000 mcg Completed 06/09/2023 75161 Inj Subcutaneous Or Intramus cular Completed 06/09/2023 3078F PVRP Diastolic BP <80 mmHg C ompleted 06/09/2023 3075F PVRP Systolic BP 130 To 139 MMHG Completed 06/09/2023 3044F PVRP HGB-A1c <7.0% Completed 06/02/2023 66492 Venipuncture Routine [facility] ed 04/01/2023 [id number] Mammogram Completed 12/23/2022 [id number] Colonoscopy Completed Medical Devices Description No Information Available Encounters Type Date Location Provider Dx Diagnosis Office Visit 10/11/2023 2:30p Justus Ng PA-C I10 Essential (primary) hypertension E78.2 Mixed hyperlipidemia E11.65 Type 2 diabetes bib itus with hyperglycemia K31.84 Gastroparesis D51.9 Vitamin B12 deficien cy anemia, unspecified Office Visit 06/09/2023 2:00p Justus moffett PA-C Z00.01 Encounter for general adult medical exam w abnormal findings I10 Essential (primary) hypertension E78.5 Hyperlipidemia, unsp ecified E11.65 Type 2 diabetes bib itus with hyperglycemia E03.9 Hypothyroidism, unsp ecified Assessments Date Code Description Provider 11/10/2023 D51.9 Vitamin B12 deficiency anemi a, unspecified Millicent Johnston MD 10/11/2023 I10 Essential (primary) hyperten sushma Ramses Ng PA-C 10/11/2023 E78.2 Mixed hyperlipidemia Ramses Ng PA-C 10/11/2023 E11.65 Type 2 diabetes mellitus wit h hyperglycemia Ramses Ng PA-C 10/11/2023 K31.84 Gastroparesis Ramses brown PA-C 10/11/2023 D51.9 Vitamin B12 deficiency anemi a, unspecified Ramses Ng PA-C 09/06/2023 E78.5 Hyperlipidemia, unspecified Ramses Ng PA-C 09/06/2023 R73.01 Impaired fasting glucose Orlando Johnston MD 09/06/2023 R73.01 Impaired fasting glucose Lab - [place] 09/06/2023 E78.5 Hyperlipidemia, unspecified Millicent Johnston MD 09/06/2023 E78.5 Hyperlipidemia, unspecified Lab - [place] 09/06/2023 K21.0 Gastro-esophagea l reflux disease with esophagitis Millicent Johnston MD 09/06/2023 K21.0 Gastro-esophagea l reflux disease with esophagitis Lab - [place] 09/06/2023 E78.2 Mixed hyperlipidemia Millicent Johnston MD 09/06/2023 E78.2 Mixed hyperlipidemia Lab - [place] 09/06/2023 E61.2 Magnesium deficiency Millicent Johnston MD 09/06/2023 E61.2 Magnesium deficiency Lab - [place] 09/06/2023 D51.9 Vitamin B12 deficiency anemi a, unspecified Millicent Johnston MD 09/06/2023 D51.9 Vitamin B12 deficiency anemi a, unspecified Lab - [place] 09/06/2023 E55.9 Vitamin D deficiency, unspec ified Millicent Johnston MD 09/06/2023 E55.9 Vitamin D deficiency, unspec ified Lab - [place] 09/06/2023 N39.0 Urinary tract infection, sit e not specified Millicent Johnston MD 09/06/2023 N39.0 Urinary tract infection, sit e not specified Lab - [place] 09/06/2023 I10 Essential (primary) hyperten sushma Millicent Johnston MD 09/06/2023 I10 Essential (primary) hyperten sushma Lab - [place] 09/06/2023 Z00.01 Encounter for ge neral adult medical examination with abnormal findings Millicent Johnston MD 09/06/2023 Z00.01 Encounter for ge neral adult medical examination with abnormal findings Lab - [place] 09/06/2023 E11.65 Type 2 diabetes mellitus wit h hyperglycemia Millicent Johnston MD 09/06/2023 E11.65 Type 2 diabetes mellitus wit h hyperglycemia Lab - [place] 08/09/2023 D51.9 Vitamin B12 deficiency anemi a, unspecified Ramses Ng PA-C 06/09/2023 Z00.01 Encounter for ge neral adult medical examination with abnormal findings Ramses Ng PA-C 06/09/2023 I10 Essential (primary) hyperten sushma Ramses Ng PA-C 06/09/2023 E78.5 Hyperlipidemia, unspecified Ramses Ng PA-C 06/09/2023 E11.65 Type 2 diabetes mellitus wit h hyperglycemia Ramses Ng PA-C 06/09/2023 E03.9 Hypothyroidism, unspecified Ramses Ng PA-C 06/02/2023 R73.01 Impaired fasting glucose Orlando Johnston MD 06/02/2023 R73.01 Impaired fasting glucose Ben Ng PA-C 06/02/2023 E78.5 Hyperlipidemia, unspecified Millicent Johnston MD 06/02/2023 E78.5 Hyperlipidemia, unspecified Ramses Ng PA-C 06/02/2023 K21.0 Gastro-esophagea l reflux disease with esophagitis Millicent Johnston MD 06/02/2023 K21.0 Gastro-esophagea l reflux disease with esophagitis Ramses Ng PA-C 06/02/2023 E78.2 Mixed hyperlipidemia Millicent Johnston MD 06/02/2023 E78.2 Mixed hyperlipidemia Ramses Ng PA-C 06/02/2023 E61.2 Magnesium deficiency Millicent Johnston MD 06/02/2023 E61.2 Magnesium deficiency Ramses Ng PA-C 06/02/2023 D51.9 Vitamin B12 deficiency anemi a, unspecified Millicent Johnston MD 06/02/2023 D51.9 Vitamin B12 deficiency anemi a, unspecified Ramses Ng PA-C 06/02/2023 E55.9 Vitamin D deficiency, unspec ified Millicent Johnston MD 06/02/2023 E55.9 Vitamin D deficiency, unspec ified Ramses Ng PA-C 06/02/2023 N39.0 Urinary tract infection, sit e not specified Millicent Johnston MD 06/02/2023 N39.0 Urinary tract infection, sit e not specified Ramses Ng PA-C 06/02/2023 I10 Essential (primary) hyperten sushma Millicent Johnston MD 06/02/2023 I10 Essential (primary) hyperten sushma Ramses Ng PA-C 06/02/2023 Z00.01 Encounter for ge neral adult medical examination with abnormal findings Millicent Johnston MD 06/02/2023 Z00.01 Encounter for ge neral adult medical examination with abnormal findings Ramses gN PA-C 06/02/2023 E11.65 Type 2 diabetes mellitus wit h hyperglycemia Millicent Johnston MD 06/02/2023 E11.65 Type 2 diabetes mellitus wit h hyperglycemia Ramses Ng PA-C 06/02/2023 R73.01 Impaired fasting glucose Lab - [place] 06/02/2023 E78.5 Hyperlipidemia, unspecified Lab - [place] 06/02/2023 K21.0 Gastro-esophagea l reflux disease with esophagitis Lab - [place] 06/02/2023 E78.2 Mixed hyperlipidemia Lab - [place] 06/02/2023 E61.2 Magnesium deficiency Lab - [place] 06/02/2023 D51.9 Vitamin B12 deficiency anemi a, unspecified Lab - [place] 06/02/2023 E55.9 Vitamin D deficiency, unspec ified Lab - [place] 06/02/2023 N39.0 Urinary tract infection, sit e not specified Lab - [place] 06/02/2023 I10 Essential (primary) hyperten sushma Lab - [place] 06/02/2023 Z00.01 [facility]counter [facility] examination with abnormal findings Lab - [place] 06/02/2023 E11.65 Type 2 diabetes mellitus wit h hyperglycemia Lab - [place] Plan of Treatment Future Appointment(s):* 01/12/2024 8:15 am - [place] * 12/13/2023 9:15 am - [place] * 02/17/2024 8:15 am - Ramses Ng PA-C at [place] 10/11/2023 - Ramses Ng PA-C* I10 Essential (primary) hypertension* Comments:* Controlling without medication Low-sodium diet Patient verbalizes understanding of care plan / instructions. * Recommendations:* Low-salt diet. Exercise. Continue medication as directed. * E78.2 Mixed hyperlipidemia* Comments:* Continue current medication. Continue current medication. Continue current medication. Decrease sugar and carbohydrates in diet Increase physical activity and exercises tolerated * Recommendations:* Low-fat, low-cholesterol diet. Exercise. * E11.65 Type 2 diabetes mellitus with hyperglycemia* Comments:* Patient verbalizes understanding of care plan / instructions. [facility] Labs discussed * Recommendations:* Follow diabetic diet. Continue medications as prescribed. * K31.84 Gastroparesis* Comments:* Patient verbalizes understanding of care plan / instructions. Consider Reglan * Follow up:* Follow up 4 months * D51.9 Vitamin B12 deficiency anemia, unspecified * All* New Medication:* Sucralfate 1 GM/10ML - 10ml by mouth three times a day prior to meals and once before bed as needed * Famotidine 40 mg/5ML - 5mL twice daily * Famotidine 40 mg - 1 by mouth twice daily Functional Status Description No Information Available Mental Status Description No Information Available Referrals Description No Information Available
--- OUTSIDE RECORDS SUMMARY | 2023-11-24 07:08 | External Medical Summary | Continuity of Care Document ---
Author Name Unknown Organization [facility] er, Address [address] [place] [address] Phone [phone] Problems Active Problems Provider Date Gastroesophageal reflux [...] SIG Qnty Indications Order ing Provider Date Wcimyqquqs1YX/10ML Suspension 10ml by mouth three times a day prior to meals and once before bed as needed 1260ml Millicent Johnston MD 10/11/2023 Lsqizfgclz56qr/5ML Suspension Rec 5mL twice daily 450ml Millicent Johnston MD 10/11/2023 Metformin ELN915dd Tablets take 1 tablet by mouth twice daily 180tabs E11.65 Millicent Johnston MD 06/09/2023 Levothyroxine Lsrrkx35vya Tablets 1 by mouth every day 90tabs E03.9 Millicent Johnston MD 06/09/2023 Cyclobenzaprine ZWY49tt Tablets Take 1 Tablet By Mouth Once Daily as Needed 30tabs Millicent Johnston MD 10/06/2022 Freestyle Lite TestStrips Use to check up to three times daily Dx: E11.9 300units Millicent Johnston MD 04/08/2022 BD Pen Needle/Aaliyah/Ultra -Fine/32G X 4mm32G X 4 mm Misc use with insulin as advised Dx; E11.9 100units Millicent Johnston MD 03/31/2021 Skzcwzathjzzkb9447gjs/M L Solution inject 1ml Im once monthly 3units D51.9 Millicent Johnston MD 02/21/2020 Vitamin D (Ergocalciferol)1.25mg (94610 Ut) Capsules take 2 capsules by mouth once a week 24caps E55.9 Millicent Johnston MD 08/03/2019 Rosuvastatin Smgdame52mr Tablets 1 by mouth every day 90tabs E78.2 Millicent Johnston MD 07/09/2018 Igflunm108wl Tablets 1 tab by mouth as needed migraine onset; can be repeated 2 hours later 9tabs Frederic Mcgee JR, MD Freestyle LancetsMisc check blood sugar up to three times a day Dx E11.65 E11.65 Unknown Freestyle TestStrips use to check sugars up to three times daily Dx E11.65 E11.65 Unknown Flintstones Wjpdfyjx84tx Chewtabs 2 by mouth every day Unknown Pantoprazole Adzztz18jq Tablets DR Unknown History Medications Bsoaxvhqqh37wu Tablets 1 by mouth twice daily 180tabs Millicent Johnston MD 10/11/2023 - 10/11/2023 Medications Administered in Office Medication SIG Qnty Indications Ordering Provider Date Injection Vitamin B-12 Up To 1000 mcgInjection Lab - [place] 2023 Injection Vitamin B-12 Up To 1000 [...] Up To 1000 mcgInjection Meme MMary ompson, IT NETWORK ARCHITECT 12/05/2021 Injection Vitamin B-12 Up To 1000 mcgInjection Meme MMary ompson, IT NETWORK ARCHITECT 10/27/2021 Injection Vitamin B-12 Up To 1000 [...] B-12 Up To 1000 mcgInjection Lab - [place] 2020 Injection Dexamethasone Sodi um Phosphate, 1 MGInjection Ramses D. MADONNA Ng 12/02/2020 Injection Methylprednisolone Acetate 40 MGInjection Ramses D. MADONNA Ng 12/02/2020 Injection Vitamin B-12 Cyanocobalamin To 1000 mcgInjection Ramses D. Johanna holden PA-C 11/25/2020 Injection Kenalog 10 MG NDC [id number] Ramses D. L MADONNA moffett 10/11/2020 Injection Ketorolac Trometha mine Per 15 mg/.5cc (Toradol)Injection Ramses D. Minesh fatima PA-C 10/11/2020 Injection Dexamethasone Sodi um Phosphate, 1 MGInjection Ramses D. MADONNA Ng 10/11/2020 Injection Vitamin B-12 Cyanocobalamin To 1000 mcgInjection Meme smith, IT NETWORK ARCHITECT 09/26/2020 Injection Vitamin B-12 Cyanocobalamin To 1000 mcgInjection Ramses D. Johanna holden PA-C 08/30/2020 Injection Methylprednisolone Acetate 40 MGInjection Ramses D. MADONNA Ng 07/30/2020 Injection Vitamin B-12 Cyanocobalamin To 1000 mcgInjection Ramses D. Johanna holden PA-C 07/26/2020 Injection Vitamin B-12 Up To 1000 mcgInjection Lab - [place] 2020 Injection Vitamin B-12 Up To 1000 mcgInjection Meme marshall, IT NETWORK ARCHITECT 05/02/2020 Injection Vitamin B-12 Up To 1000 mcgInjection Ramses D. Margarita brown PA-C 04/01/2020 Injection Vitamin B-12 Up To 1000 mcgInjection Ramses D. Margarita brown PA-C 03/05/2020 Injection Vitamin B-12 Up To 1000 mcgInjection Ramses D. Margarita brown PA-C 01/30/2020 Injection Dexamethasone Sodi um Phosphate, 1 MGInjection Ramses D. MADONNA Ng 01/15/2020 Injection Vitamin B-12 Up To 1000 mcgInjection Ramess D. Margarita brown PA-C 01/01/2020 Injection Vitamin [...] CPT Code Status Date Vaccine Lot # [id number] Given 12/09/2021 Influenza Virus Vaccine, Quadrivalent (Cciiv4), Derived From Cell [id number] U-FLU Given 12/09/2021 Influenza,Unspecified as1 [id number] 20925 Given 03/04/2021 Moderna Sars-Co v-2 (Cov-19) vacc,100 mcg/ 0.5 mL 12Y+EMR Doc Only [id number] 81363 Given 01/29/2021 Moderna Sars-Co v-2 (Cov-19) vacc,100 mcg/ 0.5 mL 12Y+EMR Doc Only [id number] U-FLU Given 01/13/2021 Influenza,Unspecified 40608 Given 01/13/2021 Influenza Virus Vaccine, Quadrivalent (Cciiv4), Derived From Cell [id number] U-FLU Given 12/11/2019 Influenza,Unspecified 13917 Given 12/11/2019 Influenza Virus Vaccine, Quadrivalent (Cciiv4), Derived From 7 Given 01/09/2019 Influenza Virus Vaccine, Quadrivalent (Cciiv4), Derived From Cell [id number] U-FLU Given 01/09/2019 Influenza,Unspecified U-FLU Given 01/05/2017 Influenza,Unspecified U-FLU Given 03/16/2012 Influenza,Unspecified 58351 Given 04/18/1999 TB Intradermal Test U-POLIO Given 01/25/1978 Polio,Unspecified 48114 Given 01/25/1978 Poliovirus Vaccine, (IPV) 88623 Given 06/16/1972 MMR Vaccine U-DTAP Given 09/20/1967 DTaP,Unspecified 51139 Given 09/20/1967 FMsX-Ltp-YNO (Pentacel) V accine [id number] Refused 09/26/2020 Moderna Sars-Co v-2 (Cov-19) vacc,100 mcg/ 0.5 mL 12Y+EMR Doc Only [id number] Refused 08/03/2019 Pneumococcal Vaccine/Pneu movax 23 [id number] Refused 08/03/2019 Shingrix Vital Signs Date Vital Result Comment 10/11/2023 2:25pm BP Systolic 122 mmHg BP Diastolic 80 mmHg Body Temperature 97.3 F Heart Rate 80 /min Respiratory Rate 15 /min Weight 175.12 lb Weight 79.437 kg Height 64 inches 5'4" BMI (Body Mass Index) 30.1 kg/m2 O2 % BldC Oximetry 96 % [place] Body Weight 120 lb 06/09/2023 2:00pm BP Systolic 130 mmHg BP Diastolic 78 mmHg Body Temperature 97.4 F Heart Rate 98 /min Respiratory Rate 14 /min Weight 206.00 lb Weight 93.442 kg Height 64 inches 5'4" BMI (Body Mass Index) 35.4 kg/m2 O2 % BldC Oximetry 95 % [place] Body Weight 120 lb Results Test Acquired Date Facility Test Result H/L Range Note Microalbumin Urine 09/06/2023 [facility]. [address] [place], [place] [id number] [phone] Urine Creat 112 mg/dL Comment Microalbumin 7.2 mg/dL High 0.0-1.8 1 ug/mgCREATININ E 64 ug/mg High 0-29 Urinalysis,Cul t If Indicated 09/06/2023 [facility]. [address] [place], [place] [id number] RFLX Culture COMMENT Urinalysis 09/06/2023 [facility]. [address] [place] [address] [phone] Color COMMENT 2 Appearance COMMENT Clear Spec.Grav. COMMENT 1.005-1.0 25 Leukocytes COMMENT Negative Nitrite COMMENT Negative PH COMMENT 6.0-7.5 Protein COMMENT Negative Urine Glucose COMMENT Negative Ketone COMMENT Negative Urobilinogen COMMENT E.U./DL Normal Bilirubin COMMENT Negative Blood COMMENT Negative WBC-U COMMENT /HPF 0-5/HPF RBC-U COMMENT /HPF 0-5/HPF Bacteria COMMENT None Seen Squamous COMMENT /HPF 0-5/HPF Manual Diff 09/06/2023 [facility]. [address] [place] [address] [phone] Seg 65 45-75 Lymph 29 20-45 [place] 4 0-10 Eosin 2 0-6 Baso 0 0-2 CBC No Diff 09/06/2023 [facility]. [address] [place] [address] WBC 7.6 10^3/M3 3.1-9.2 RBC 4.68 10^6/M3 3.70-5.50 HGB 13.6 GR/DL 11.5-16.1 HCT 41.6 % 34.5-47.8 MCV 89.0 CUMICR 82.6-95.8 MCH 29.1 PICOGR 27.9-32.9 MCHC 32.7 % 32.6-35.4 RDW 13.5 % 11.4-14.6 PLT 221 10^3/M3 140-350 MPV 9.4 CUMICR 7.0-10.6 Microalbumin Urine 09/06/2023 [facility]. [address] [place] [address] Urine Creat COMMENT mg/dL Comment Microalbumin COMMENT mg/dL 0.0-1 .8 3 ug/mgCREATININ E COMMENT ug/mg Low 0-29 4 Laboratory test finding 09/06/2023 [facility]. [address] [place], [place] [id number] Magnesium 1.8 mg/dL 1.7-2.8 VB12 >1500 pg/mL High 230-1050 5 Vitd-25Oh 77 ng/mL 30-100 Phosphorus 4.3 mg/dL 2.5-4.8 Uric Acid 4.6 mg/dL 2.5-7.5 Hba1c 09/06/2023 [facility]. [address] [place] [address] A1c 5.30 % 4.70-6.50 6 T3/T4/TSH 09/06/2023 [facility]. [address] [place] [address] T3 1.5 ng/mL 0.7-1.7 T4 12.8 g /dL High 4.0-11.0 TSH 1.15 uIU/mL 0.50-6.00 Lipid 09/06/2023 [facility] [address] [place] [address] Cholesterol 133 mg/dL 0-200 7 Triglyceride 146 mg/dL 0-150 8 HDLD 39 mg/dL See Comment 9 Measured LDL 75 mg/dL 0-130 10 Calc VLDL 29.2 mg/dL See Comment 11 Chol/HDL 3.4 RATIO See Comment 12 Non-HDL 94 mg/dL See Comment 13 Comp. Met 09/06/2023 [facility]. [address] [place] [address] [phone] Glucose 100 mg/dL 70-110 BUN 14 mg/dL [...] GFR 92 ML/MIN/1.73SQM >60 Urine Culture 09/06/2023 [facility]. [address] [place], [place] [id number] [phone] Urine Source URINE Urc Comment INSIGNIFICANT GR <SEE NOTE> 14 Urinalysis 09/06/2023 [facility]. [address] [place], [place] [id number] Color YELLOW Appearance CLOUDY Abnormal Clear Spec.Grav. [...] None Seen Urinalysis,Cul t If Indicated 09/06/2023 [facility]. [address] [place] [address] RFLX Culture YES Comp. Met 06/02/2023 [facility]. [address] [place], [place] [phone] Glucose 82 mg/dL 70-110 BUN 12 mg/dL [...] 2.0-3.4 GFR 135 ML/MIN/1.73SQM >60 Lipid 06/02/2023 [facility]. [address] [place], [place] [id number] [phone] Cholesterol 151 mg/dL 0-200 15 Triglyceride 181 mg/dL High 0-150 1 6 HDLD 33 mg/dL See Comment 17 Measured LDL 96 mg/dL 0-130 18 Calc VLDL 36.2 mg/dL See Comment 19 Chol/HDL 4.6 RATIO See Comment 20 Non-HDL 118 mg/dL See Comment 21 T3/T4/TSH 06/02/2023 [facility]. [address] [place], [place] [phone] T3 1.4 ng/mL 0.7-1.7 T4 14.6 g /dL High 4.0-11.0 TSH 1.02 uIU/mL 0.50-6.00 Hba1c 06/02/2023 [facility]. [address] [place] [address] A1c 5.50 % 4.70-6.50 22 CBC W/Diff 06/02/2023 [facility]. [address] [place] [address] [phone] WBC 9.8 10^3/M3 High 3.1-9.2 RBC 4.60 10^6/M3 3.70-5.50 HGB 13.6 GR/DL 11.5-16.1 HCT 41.1 % 34.5-47.8 MCV 89.4 CUMICR 82.6-95.8 MCH 29.7 PICOGR 27.9-32.9 MCHC 33.2 % 32.6-35.4 RDW 14.6 % 11.4-14.6 PLT 228 10^3/M3 140-350 MPV 10.0 CUMICR 7.0-10.6 %Neut 62.6 % 40.0-75.0 %Lymph 25.8 % 17.0-45.0 %[place] 9.0 % 1.0-11.0 %Eos 1.6 % 0.0-6.0 %Baso 1.0 % 0.0-2.0 #Neut 6.2 10^3/M3 1.5-8.0 #Lymph 2.5 10^3/M3 0.8-3.2 #[place] 0.9 10^3/M3 High 0.0-0.8 #Eos 0.2 10^3/m3 0.0-0.4 #Baso 0.1 10^3/m3 0.0-0.2 Laboratory test finding 06/02/2023 [facility]. [address] [place] [address] Magnesium 1.5 mg/dL Low 1.7-2.8 VB12 903 pg/mL 230-1050 Vitd-25Oh 72 ng/mL 30-100 Phosphorus 3.6 mg/dL 2.5-4.8 Uric Acid 7.2 mg/dL 2.5-7.5 Urinalysis,Cul t If Indicated 06/02/2023 [facility]. [address] [place] [address] RFLX Culture COMMENT Microalbumin Urine 06/02/2023 [facility]. [address] [place] [address] Urine Creat COMMENT mg/dL Comment Microalbumin COMMENT mg/dL 0.0-1 .8 23 ug/mgCREATININ E COMMENT ug/mg Low 0-29 24 Urinalysis 06/02/2023 [facility]. [address] [place] [address] [phone] Color COMMENT 25 Appearance COMMENT Clear Spec.Grav. COMMENT 1.005-1.0 25 Leukocytes COMMENT Negative Nitrite COMMENT Negative PH COMMENT 6.0-7.5 Protein COMMENT Negative Urine Glucose COMMENT Negative Ketone COMMENT Negative Urobilinogen COMMENT E.U./DL Normal Bilirubin COMMENT Negative Blood COMMENT Negative WBC-U COMMENT /HPF 0-5/HPF RBC-U COMMENT /HPF 0-5/HPF Bacteria COMMENT None Seen Squamous COMMENT /HPF 0-5/HPF 1 *[employer] USES MICROALBUMIN/CREATINE RATIO : [...] FOR TESTING NOT ACQUIRED TL 3 *[employer] USES MICROALBUMIN/CREATINE RATIO : [...] 150-7 90-5 300-12 270-11 240-10 23 *[employer] USES MICROALBUMIN/CREATINE RATIO : [...] TL Procedures Date Code Description Status 11/10/2023 J3420 Injection Vitamin B-12 Up To 1000 mcg Completed 10/11/2023 J3420 Injection Vitamin B-12 Up To 1000 mcg Completed 10/11/2023 46878 Inj Subcutaneous Or Intramus cular Completed 10/11/2023 3079F PVRP Diastolic BP 80-89 MMHG Completed 10/11/2023 3074F PVRP Systolic BP <130 mmHg C ompleted 10/11/2023 3044F PVRP HGB-A1c <7.0% Completed 09/06/[address] [facility] ed 08/09/2023 J3420 Injection Vitamin B-12 Up To 1000 mcg Completed 08/09/2023 04331 Inj Subcutaneous Or Intramus cular Completed 06/09/2023 J3420 Injection Vitamin B-12 Up To 1000 mcg Completed 06/09/2023 3044F PVRP HGB-A1c <7.0% Completed 06/09/2023 3075F PVRP Systolic BP 130 To 139 MMHG Completed 06/09/2023 3078F PVRP Diastolic BP <80 mmHg C ompleted 06/09/2023 23076 Inj Subcutaneous Or Intramus cular Completed 06/02/[address] [facility] ed 05/13/2023 J3420 Injection Vitamin B-12 Up To 1000 mcg Completed 05/13/2023 96517 Inj Subcutaneous Or Intramus cular Completed 04/01/2023 [id number] Mammogram Completed 12/23/2022 [id number] Colonoscopy Completed Medical Devices Description No Information [...] unsp ecified Assessments Date Code Description Provider 10/11/2023 I10 Essential (primary) hyperten sushma Ramses [...] 09/06/2023 R73.01 Impaired fasting glucose Lab - [place] 09/06/2023 E78.5 Hyperlipidemia, unspecified Millicent Johnston MD 09/06/2023 E78.5 Hyperlipidemia, unspecified Lab - [place] 09/06/2023 K21.0 Gastro-esophagea l reflux disease with esophagitis Millicent Johnston MD 09/06/2023 K21.0 Gastro-esophagea l reflux disease with esophagitis Lab - [place] 09/06/2023 E78.2 Mixed hyperlipidemia Millicent Johnston MD 09/06/2023 E78.2 Mixed hyperlipidemia Lab - [place] 09/06/2023 E61.2 Magnesium deficiency Millicent Johnston MD 09/06/2023 E61.2 Magnesium deficiency Lab - [place] 09/06/2023 D51.9 Vitamin B12 deficiency anemi a, unspecified Millicent Johnston MD 09/06/2023 D51.9 Vitamin B12 deficiency anemi a, unspecified Lab - [place] 09/06/2023 E55.9 Vitamin D deficiency, unspec ified Millicent Johnston MD 09/06/2023 E55.9 Vitamin D deficiency, unspec ified Lab - [place] 09/06/2023 N39.0 Urinary tract infection, sit e not specified Millicent Johnston MD 09/06/2023 N39.0 Urinary tract infection, sit e not specified Lab - [place] 09/06/2023 I10 Essential (primary) hyperten sushma Millicent Johnston MD 09/06/2023 I10 Essential (primary) hyperten sushma Lab - [place] 09/06/2023 Z00.01 Encounter for ge neral adult medical examination with abnormal findings Millicent Johnston MD 09/06/2023 Z00.01 Encounter for ge neral adult medical examination with abnormal findings Lab - [place] 09/06/2023 E11.65 Type 2 diabetes mellitus wit h hyperglycemia Millicent Johnston MD 09/06/2023 E11.65 Type 2 diabetes mellitus wit h hyperglycemia Lab - [place] 08/09/2023 D51.9 Vitamin B12 deficiency anemi a, [...] examination with abnormal findings Ramses Ng PA-C 06/02/2023 E11.65 Type 2 diabetes mellitus wit h hyperglycemia Millicent Johnston MD 06/02/2023 E11.65 Type 2 diabetes mellitus wit h hyperglycemia Ramses Ng PA-C 06/02/2023 R73.01 Impaired fasting glucose Lab - [place] 06/02/2023 E78.5 Hyperlipidemia, unspecified Lab - [place] 06/02/2023 K21.0 Gastro-esophagea l reflux disease with esophagitis Lab - [place] 06/02/2023 E78.2 Mixed hyperlipidemia Lab - [place] 06/02/2023 E61.2 Magnesium deficiency Lab - [place] 06/02/2023 D51.9 Vitamin B12 deficiency anemi a, unspecified Lab - [place] 06/02/2023 E55.9 Vitamin D deficiency, unspec ified Lab - [place] 06/02/2023 N39.0 Urinary tract infection, sit e not specified Lab - [place] 06/02/2023 I10 Essential (primary) hyperten sushma Lab - [place] 06/02/2023 Z00.01 [facility] [place] 06/02/2023 E11.65 Type 2 diabetes mellitus wit h hyperglycemia Lab - [place] 05/13/2023 D51.9 Vitamin B12 deficiency anemi a, unspecified Millicent Johnston MD Plan of Treatment Future Appointment(s):* 01/12/2024 8:15 am - [place] * 12/13/2023 9:15 am - [place] * 02/17/2024 8:15 am - Ramses Ng PA-C at [place] 10/11/2023 - Ramses Ng PA-C* I10 Essential [...] understanding of care plan / instructions. [email or web address] Labs discussed * Recommendations:* Follow diabetic diet. [...]
--- OUTSIDE RECORDS SUMMARY | 2023-11-24 07:08 | External Medical Summary | Continuity of Care Document ---
Author Name Unknown Organization [facility] [id number] [place] [id number] Address [address] [place] [phone] Care Team Providers Care A P Mechanic Name Role Phone Ramses Ng Primary Care Physician [phone] [id number] Date(s): 10/28/23 - 10/28/23 [facility] [facility] Sports Medicine [address] [place] [address] Encounter Diagnosis Arthritis of both feet(Discharge Diagnosis) - 10/28/23 Degenerative joint disease (DJD) of lumbar spine(Discharge Diagnosis) - 10/28/23 Tarsal tunnel syndrome of right side(Discharge Diagnosis) - 10/28/23 Plantar fasciitis, right(Discharge Diagnosis) - 10/28/23 Neuropathy(Discharge Diagnosis) - 10/28/23 Pernicious anemia(Discharge Diagnosis) - 10/28/23 Discharge Disposition: Home or Self Care Attending Physician: TRACE Ledbetter Christina L Allergies, Adverse Reactions, Alerts Substance Criticality Severity Reaction Reaction Severity Status codeine migraine trigger Act silvino clindamycin Abdominal pain Diarrhea Active Levaquin memory loss Vomiting Vertigo Nausea Active Assessment and Plan Extracted from: Title:Follow Up Visit Author:TRACE Ledbetter, Dusty Tompkins Date:10/28/23 1.Arthritis of both feet Very long discussion with patient today that I have 5 main things I want her to do First isto have a repeatultrasound evaluation to see what thenerve/Baxters nerve and the canal looks liketo evaluate if the nerve is further inflamedto evaluate the plantar fascia if it is further inflamed and to evaluatethe musculature surrounding Baxters nerve to see if there is any atrophy perhaps would benefit from another injection in this area. I still have concerns about performinga Baxters nerve releasebecause I feel her pain is likely multifactorialfrom this history of bilateral ankle fracturesas well as her lower back issues. I provided a consult for patient to see Dr. Tsaifor possible repeat back injection as she is having worsening back painshe is also noting to me that when she walks upstairsshe is losing her balance and at times feels she cannot lift her right footalmost send discussion sounds like symptoms consistent with a right foot dropperhaps this is secondary toa nerve impingement issue from her lower back which she does notably have. I provided her blood work for vitamin B12 and folic acid to more further evaluate. I do feel that even though her orthotics are not comfortablewe can keep revising them until we get some level of comfortshe did not bring them today which I would have preferred because and I could evaluate them better to make suggestionsbut I did advise she bring them back and meet with Jeevan to have these adjusted. She should also follow-up with orthopedicsfor further evaluation. Patient is understandingshe had no further questions or concerns recommend follow-up in 3 months I spent 6 minute planning including prepping note and chart review. I spent 18 minute hthy-iv-irik interaction with patient addressing issuesdiscussed in visit today. I spent 5 minute time in postop visitplanning including note finishing in depart process. Total time spent on patient visit 29 minutes. 2.Degenerative joint disease (DJD) of lumbar spine 3.Tarsal tunnel syndrome of right side 4.Neuropathy 5.Pernicious anemia 6.Plantar fasciitis, right Immunizations Given and Recorded Vaccine Date Status Refusal Reason SARS-CoV-2 (COVID-19) mRNA-1273 vaccine 1 03/04/21 Recorded SARS-CoV-2 (COVID-19) mRNA-1273 vaccine 2 01/29/21 Recorded poliovirus vaccine, inactivated 3 01/25/78 Recorde d diphth/haemophilus/pertuss/tetanus/polio 4 09/20/67 Recorded 1Result Comment: 2022-10-06: Historical information-source unspecified 2Result Comment: 2022-10-06: Historical information-source unspecified 3Result Comment: 2022-10-06: Historical information-source unspecified 4Result Comment: 2022-10-06: Historical information-source unspecified Medications cyanocobalamin 1000 mcg/mL injectable solution INJECT 1 ML ONCE A WEEK FOR 4 WEEKS THEN ONCE MONTHLY Start Date: 09/29/19 Status: Ordered ergocalciferol 1.25 mg (50,000 intl units) oral capsule Start: 04/25/23 1:06:00 PM EST, 9 each, TAKE 2 CAPSULES BY MOUTH ONCE A WEEK Start Date: 04/25/23 Status: Ordered Flexeril 10 mg oral tablet Start: 04/07/23 2:32:00 PM EST, 1 tab, PO, tid, Disp# 15 tab, Refills: 1, PRN: as needed for spasm, Pharmacy: [facility] Start Date: 04/07/23 Status: Ordered Flintstones Multivitamins Start: 10/26/23 3:00:00 PM EDT, 2 tabs, PO, Daily Start Date: 10/26/23 Status: Ordered levothyroxine 25 mcg (0.025 mg) oral tablet Start: 07/02/23 3:26:00 PM EDT, 1 tab, PO, Daily Start Date: 07/02/23 Status: Ordered metFORMIN 500 mg oral tablet Start: 07/23/23 10:28:00 AM EDT, 1 tab, PO, bid Start Date: 07/23/23 Status: Ordered Mounjaro Start: 02/02/23 10:31:00 AM EST, 5 mg =, subQ, qSunday Start Date: 02/02/23 Status: Ordered Mycolog-II topical cream Start: 10/26/23 3:40:00 PM EDT, See Instructions, Disp# 30 g, Apply a thin layer to external genitalia as needed, Pharmacy: [facility]/pharmacy #[id number] Start Date: 10/26/23 Status: Ordered pantoprazole 40 mg oral delayed release tablet Start: 07/28/23 8:03:00 AM EDT, 1 tab, PO, Daily, Disp# 90 tab, Pharmacy: [facility] Start Date: 07/28/23 Status: Ordered rosuvastatin 10 mg oral tablet Start: 05/04/23 11:41:00 AM EST, 1 tab, PO, Daily Start Date: 05/04/23 Status: Ordered Mental Status 10/28/23 Barriers to Learning one year Vision imp airment, Other: wears glasses Mandatory Health Literacy Documentation Yes Health Literacy Communication Barriers N ever Primary Language Greek Problem List Condition Confirmation Course Effective Dates Status H ealth Status Informant Extruding suture Confirmed Active Arthrofibrosis of ankle joint Confirmed Active Ankle pain Confirmed Active Foot pain Confirmed Active Facet arthropathy, lumbar Confirmed Active Back pain with radiation Confirmed Active Bacterial pneumonia Confirmed Active Bacteriuria Confirmed Active Arthritis of both feet Confirmed Active Nerve compression Confirmed Active Constipation Confirmed Active Alternating constipation and diarrhea Confirmed Active Cystocele with prolapse Confirmed Active Cystocele Confirmed Active Diabetes 1 Confirmed 07/2018 Active DJD (degenerative joint disease) Confirmed Active Facial rash 2 Confirmed 03/2021 Active Flank pain Confirmed Active Right foot pain Confirmed Active Nondisplaced fracture of right fibula Confirmed Active GERD (gastroesophageal reflux disease) Confirmed Active History of dysplastic nevus Confirmed Active Gastric bypass status for obesity Confirmed Active History of kidney stones Confirmed Active Elevated cholesterol Confirmed Active Hyperlipidemia Confirmed Active 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, 4 Confirmed 09/26/19 Active Johnson metatarsalgia Confirmed Active Elevated LFTs Confirmed Active Low back pain Confirmed Active Lumbar radiculopathy, right Confirmed Active 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 Active Migraines Confirmed Active Nephrolithiasis Confirmed Active Neuropathy Confirmed Active Right knee pain Confirmed Active Pre-op exam Confirmed Active Neuritis of foot Confirmed Active Pernicious anemia Confirmed Active Plantar fasciitis Confirmed Active Plantar fasciitis, right Confirmed Active Preop examination Confirmed Active Lumbar disc disease Confirmed Active Right flank pain Confirmed Active RUQ pain Confirmed Active S/P gastric bypass Confirmed Active Sacroiliitis Confirmed Active Spring ligament tear Confirmed Active Fatty liver Confirmed Active Pes planus of right foot Confirmed Active Tarsal tunnel syndrome of right side Confirmed Active Weight disorder Confirmed Active 1Type 2 2upper chest, forehead, chin Urine 40 THOUSAND COLONIES/ML ESCHERICHIA COLI 4>100 THOUSAND COLONIES/ML ESCHERICHIA COLI (MDRO) present in urine collected 09/26/2019 Diagnosis Diagnosis Type Effective Dates Health Status Clinical Service Informant Arthritis of both feet Discharge Diagnosis 10/28/23 Non-Specified Degenerative joint disease (DJD) of lumbar spine Discharge Diagnosis 10/28/23 Non-Specified Tarsal tunnel syndrome of right side Discharge Diagnosis 10/28/23 Non-Specified Neuropathy Discharge Diagnosis 10/28/23 Non-Specified Plantar fasciitis, right Discharge Diagnosis 10/28/23 Non-Specified Pernicious anemia Discharge Diagnosis 10/28/23 Non-Specified Procedures Procedure Date Related Diagnosis Body Site Status Esophagogastroduodenoscopy w ith removal of food 09/17/23 Completed Partial gastrectomy; revisio n of gastrojejunostomy 1 04/07/23 Completed Colonoscopy 2 12/23/22 Completed EGD - esophagogastroduodenoscopy 3 12/23/[address] of abdomen and pelvis 4, 5 05/31/[address] of abdomen and pelvis 6, 7 11/29/20 Completed Colonoscopy 8 12/29/19 Completed Upper GI endoscopy 9 12/29/19 Comp leted Laboratory findings data interpretation 10 11/09/19 Completed Anterior colporrhaphy 10/16/19 Com pleted [...] Appendectomy 1992 Completed Cholecystectomy 1991 Completed Hysterectomy 1990 Completed 1Robotic revision of gastrojejunostomy; partial gastrectomy; gastroscopy; hiatal hernia repair with mesh. 2The rectum, sigmoid colon, descending colon, splenic flexure, trasverse colon, hepatic flexure, ascending colon, cecum and recto-sigmoid colon are normall. No specimens collected. Repeat in 5 years. 3Normal esophagus. Gastric bypass with normal-sized pouch and intact staple line. Gastrojejunal anastomosis characterized by healthy appearing mucosa, biopsied. Noemal examined duodenum, biopsied. 4body of report s/p joanne, nl pancreas, renal cyst, umbilical hernia, fatty liver 5Impression: 1. No acute abnormalities and in particular no evidence of hydronephrosis or hydroureter in this patient with right-sided flank pain. Nonobstructive stones are seen. 2. Hepatic steatosis. 6Impression: 1. There are no acute infectious or inflammatory findings in the abdomen or pelvis. 2. There are punctate nonobstructing renal calculi. 3. Postoperative change is consistent with previous Yanet-en-Y gastric bypass surgery. No bowel obstruction is seen. 4. Additional findings as above. 7body of report s/p joanne, pancreas atrophy, tiny HH, focal dilatation at distal anastomosis likely from denervation similar to prev CT 02/2020., mild fecal retention, umbilical hernia, 8The entire examined colon is normal. The examined portion of the ileum was normal. No specimens collected. Repeat in 10 years. 9Z-line regular, 36 cm from the incisors. Normal esophagus. Yanet-en-Y gastrojejunostomy with gastrojejunal anastomosis characterized by healthy appearing mucosa. Normal examined duodenum. No specimens collected 10Outside labs 11/06/2019 CMP ALT 60 H, Lipids chol 268 H, Trigs 254 H, T3 and TSH nl, T4 H. HgbA1c 5.9%, CBC WBC 10.9 H, Mg nl, B12 nll, Vit D nl, UA small leukocytes, 1+ bacteria. 11Right ovary remains Results Laboratory List Name Date Folate Level. (Folate-ARLN) 10/28/23 Vitamin B12 Level. (Vitamin B12 Level-AR LN) 10/28/23 Most recent to oldest [Reference Range]: 1 Folate-[facility] 16.0 ng/mL 1 (10/28/23 10:46 AM) Vitamin W35-Pwmpb [200-1100 pg/mL] 504 p g/mL 2 (10/28/23 10:46 AM) 1Result Comment: Reference Range Low: <3.4 Borderline: 3.4-5.4 Normal: >5.4 Specimen Received d/t: 10/28/2023 22:42:00 Lab test performed by: [employer] [employer] [address] [place] [address] Suresh Oliva MD 2Result Comment: Specimen Received d/t: 10/28/2023 22:42:00 Lab test performed by: [facility] [employer] [address] [place] [id number] Oliva MD Social History Social History Type Response Smoking Status Never smoked cigaret gregory Sex Female Sex Representation Female (finding) Implantable Device List Procedure Provider Procedure Date Device Type Site Unknown Unknown 04/07/23 Unknown Unknown Device Identifier Serial Number Lot or Batch Number Manufacturing Date Expiration Date Distinct Identification Code MRI Safety Implantable Status Assigning Authority Unknown Unknown [id number] Unknown 07/04/25 Unknown Unknown Active Unknown Unknown Unknown n/a Unknown 11/17/25 Unknown Unknown Active Unkn own Procedure Provider Procedure Date Device Type Site Unknown Unknown 05/05/19 Unknown Unknown Device Identifier Serial Number Lot or Batch Number Manufacturing Date Expiration Date Distinct Identification Code MRI Safety Implantable Status Assigning Authority Unknown Unknown [id number] Unknown Unknown Unknown Unknown Active Unknown Ortho Outpt Note * TRACE Ledbetter Christina L: PERFORM Event Display: Ortho Outpt Note Authored Date: Chief Complaint right heel pain follow-up, pt states it is not better Primary Care Provider MADONNA Ng, Ramses [place] Subjective Patient is a very pleasant 57-year-old female presenting today for follow- uplast seen August 30, 2023. She has a history of tarsal tunnel pain of the right foot. Had an EMG in [id number] was notably still experiencing symptoms consistent with persistent numbness on the sole of the right foot, had a follow- up EMG after the surgery that showed normalizationof the onset latencyprolongation with decreased amplitude and resolution of the active dene rvation as previouslynoted. Complicating historythat includes tarsal tunnel surgery was doing wellthen started to worsenhad worsening numbness and burningcorrelating to the plantar medial aspect of the right footgrowththen broke both of her ankles which were treated nonoperativelyand likely developed posttraumatic arthritis in both anklesalso has a history of lumbosacral degenerative arthritis. I had recommended an ultrasound evaluationfurther Baxters nerveI felt sometimes people can develop irritation around the nerveI discussed that the nerve sits in a canal surrounded by 2 muscle bellies that can cause atrophy of the muscle belliescompressingthe nerve and giving people symptoms consistent with Planter fasciitisdiscussed if symptoms did not improve to an acceptabledegreecould consider Baxters nerve release. She had an ultrasound which showed enlargement of Baxters nerveinjection was given in e noted significant improvement with regards to her heel but was still having tenderness along the arch. -Last visit I discussed several issues that could be leading to her inflammation and numbnessI did feel she needed to give the injection more timethe other etiology may be her back arthritisI provided her a prescription for orthotic refurbishment she follows up today. Review of Systems Revisional bariatric surgeryhistory of fractures kidney stones frequent headaches and numbness Objective Physical Exam Problem focused right lower extremity: Dorsalis pedis pulse palpable 2 out of 4, posterior tibial pulse palpable 2 out of 4, capillary refill time less than 3 seconds,skin turgor is good to all digits of the right foot pedal hair is present. Gross sensation is intact to all digits of the right foot. Patient is noting today that she has numbnessof the right third, fourth, fifth digitsshe is also having considerablepain to palpationof the plantar medial right heel. There is no associatederythema there is no ecchymosis. In the medialarea of thelaciniate ligament and tarsal tunnelarea of the ankleI appreciate some varicose veins but certainly nothing that appearssignificantthat could bepossibly leading to varicose veins andwrapping and encouraging around the posterior tibial nerve. Patient does have a history of vitamin B12 deficiencyshe received B12 shots had blood work inJuly that showed B12 within normal limitsmy curiosity is is if the folic acid levelis not adequate because certainly folic acid is requiredfor the proper absorption of vitamin B12 and can continue to lead to pernicious anemiaI think this is notable to evaluate because of patient's numbness she is experiencing. Continues to have possible inflammation of Baxters nerve,I am really not able tocause a positive Tinel's signbutcomplicating things is his history of lumbosacral arthritisas well as posttraumatic arthritis from previous bilateral ankle fractureswhich is certainly complicating the way she stands and walksas well as her pain she is likely experiencing. MRI, EMG, x-rays from 2021 and 2022 reviewed today as well as lumbar spineMRI reviewed at previous follow-up Assessment/Plan 1.Arthritis of both feet Very long discussion with patient today that I have 5 main things I want her to do First isto have a repeatultrasound evaluation to see what thenerve/Baxters nerve and the canal looks liketo evaluate if the nerve is further inflamedto evaluate the plantar fascia if itis further inflamed and to evaluatethe musculature surrounding Baxters nerve to see if there is any atrophy perhaps would benefit from another injection in this area. I still have concerns about performinga Baxters nerve releasebecause I feel her pain is likely multifactorialfrom this history of bilateral ankle fracturesas well as her lower back issues. I provided a consult for patient to see Dr. Tsaifor possible repeat back injection as she is having worsening back painshe is also noting to me that when she walks upstairsshe is losing her balance and at times feels she cannot lift her right footalmost send discussion sounds like symptoms consistent with a right foot dropperhaps this is secondary toa nerve impingement issue from her lower back which she does notably have. I provided her blood work for vitamin B12 and folic acid to more further evaluate. I do feel that even though her orthotics are not comfortablewe can keep revising them until we get some level of comfortshe did not bring them today which I would have preferred because and Icould evaluate them better to make suggestionsbut I did advise she bring them back and meet with Jeevan to have these adjusted. She should also follow-up with orthopedicsfor further evaluation. Patient is understandingshe had no further questions or concerns recommend follow-up in 3 months I spent 6 minute planning including prepping note and chart review. I spent 18 [id number] interaction with patient addressing issuesdiscussed in visit today. I spent 5 minute time in postop visitplanning including note finishing in depart process. Total time spent on patient visit 29 minutes. 2.Degenerative joint disease (DJD) of lumbar spine 3.Tarsal tunnel syndrome of right side 4.Neuropathy 5.Pernicious anemia 6.Plantar fasciitis, right Electronic Signature on File Electronically Reviewed/Signed by: Isamar Ledbetter DPM Author Signature Dt/Tm:10/28/2023 10:23 AM Division of Sports Medicine CLR Patient Care team information Care Team Personnel Name: MADONNA Ng, Ramses [place] Position: Referring Member Role: Primary Care Provider Address: [address] [address] [place] Name: Karma Gomez Position: HIS Supervisor_P Member Role: HIS Lifetime Name: Norma Miles Brittani Position: Pharmacist Member Role: Pharmacy - Lifetime Care Team Related Persons Name: SAMAN MARCUS Name: SAMAN MARCUS
--- OUTSIDE RECORDS SUMMARY | 2023-11-24 07:09 | External Medical Summary | Continuity of Care Document ---
Author Name Unknown Organization [address] Address [address] [place] [address] [id number] Care Team Providers Care Nursing Faculty Name Role Phone Ramses Ng Primary Care Physician [phone] [facility] [id number] Date(s): 10/26/23 - 10/26/[address] - Specialties Entrance A, [address] [place] [phone] Encounter Diagnosis Body mass index [BMI] 29.0-29.9, adult(Discharge Diagnosis) - 10/26/23 Vulvar rash(Discharge Diagnosis) - 10/26/23 Vulvar itching(Discharge Diagnosis) - 10/26/23 Discharge Disposition: Home or Self Care Attending Physician: AVEL Adams Ellen Elizabeth Referring Physician: AVEL Santana Anna L Allergies, Adverse Reactions, Alerts Substance Criticality Severity Reaction Reaction Severity Status codeine migraine trigger Act silvino clindamycin Abdominal pain Diarrhea Active Levaquin memory loss Vomiting Vertigo Nausea Active Assessment and Plan 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 Pt to f/u in one month. 2.Vulvar itching Immunizations Given and Recorded Vaccine Date Status [...] 1, PRN: as needed for spasm, Pharmacy: [facility] Start Date: 04/07/23 Status: Ordered Flintstones [...] layer to external genitalia as needed, Pharmacy: [facility]/pharmacy #[id number] Start Date: 10/26/23 Status: Ordered pantoprazole 40 mg oral delayed release tablet Start: 07/28/23 8:03:00 AM EDT, 1 tab, PO, Daily, Disp# 90 tab, Pharmacy: [facility] Start Date: 07/28/23 Status: Ordered rosuvastatin 10 mg oral tablet Start: 05/04/23 11:41:00 AM EST, 1 tab, PO, Daily Start Date: 05/04/23 Status: Ordered Mental Status 10/26/23 Barriers to Learning one year Vision imp airment, Other: wears glasses Mandatory Health Literacy Documentation Yes Health Literacy Communication Barriers N ever Primary Language Guyanese Problem List Condition Confirmation Course Effective Dates [...] Diagnosis Diagnosis Type Effective Dates Health Status Cl inical Service Informant Vulvar rash Discharge Diagnosis 10/26/23 Vulvar itching Discharge Diagnosis 10/26/23 Body mass index [BMI] 29.0-29.9, adult Discharge Diagnosis 10/26/23 Non-Specified Procedures Procedure Date Related Diagnosis Body [...] leukocytes, 1+ bacteria. 11Right ovary remains Results Orders for Microbiology Reports Name Date Molecular Vaginitis Panel (VAGINITIS NARANJO EL) 10/26/23 Microbiology Reports TEST:Vaginitis Panel STATUS:Auth (Verified) BODY SITE: SOURCE:Genital COLLECTED DATE/TIME:10/26/23 3:30 PM Status FINAL 10/26/2023 ORGANISM:Bianca glabrate/krusei DNA detected Susceptibilty: Bianca glabrate/krusei DNA detected Tested Drug Vital Signs Most recent to oldest [Reference Range]: 1 Height 162.5 cm (10/26/23 3:04 PM) Patient Weight 78.0 kg (10/26/23 3:04 PM) Body Mass Index 29.54 kg/m2 (10/26/23 3:04 PM) Heart Rate 77 bpm (10/26/23 3:04 PM) Blood Pressure 111/75mmHg (10/26/23 3:04 PM) BP Location # 1 Left Arm (10/26/23 3:04 PM) Social History Social History Type Response Smoking Status Never smoked cigaret gregory Sex Female Sex Representation Female (finding) Implantable Device List Procedure Provider Procedure Date Device Type Site Unknown Unknown 04/07/23 Unknown Unknown Device Identifier Serial Number Lot or Batch Number Manufacturing Date Expiration Date Distinct Identification Code MRI Safety Implantable Status Assigning Authority Unknown Unknown [id number] Unknown 07/04/25 Unknown Unknown Active Unknown Unknown Unknown n/a Unknown 11/17/25 Unknown Unknown Active Unkn own Procedure Provider Procedure Date Device Type Site Unknown Unknown 05/05/19 Unknown Unknown Device Identifier Serial Number Lot or Batch Number Manufacturing Date Expiration Date Distinct Identification Code MRI Safety Implantable Status Assigning Authority Unknown Unknown [id number] Unknown Unknown Unknown Unknown Active Unknown Gynecology Outpt Note * AVEL Adams, Elvira Virgen: PERFORM Event Display: Gynecology Outpt Note Authored Date: Chief Complaint 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 She states the symptoms started and worsened after a short stay in the hospital for after her gastric bypass surgery. She was placed on multiple antibiotics andwas treated with two doses of diflucan but it never improved. She was seen by Nu Santana in 07/2023 with the thought that it was due to lichen sclerosis. Shewas prescribed clotrimazole and to follow up in three months but her symptoms did not improve. No biopsy was performed at thattime. 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 Pt to f/u in one month. 2.Vulvar itching Problem List/Past Medical History Ongoing Alternating constipation and diarrhea Ankle pain Arthritis of both feet Arthrofibrosis of ankle joint Back pain with radiation Bacterial pneumonia Bacteriuria Constipation Cystocele Cystocele with prolapse Degenerative joint disease (DJD) of lumbar spine Diabetes DJD (degenerative joint disease) Elevated cholesterol Elevated LFTs Extruding suture Facet arthropathy, lumbar Facial rash Fatty liver Flank pain Foot pain Gastric bypass status for obesity GERD (gastroesophageal reflux disease) History of dysplastic nevus History of kidney stones Hyperlipidemia Low back pain Lumbar disc disease Lumbar radiculopathy, right MDRO (multiple drug resistant organisms) resistance Migraines Johnson metatarsalgia Nephrolithiasis Nerve compression Neuritis of foot Nondisplaced fracture of right fibula Pes planus of right foot Plantar fasciitis Plantar fasciitis, right Pre-op exam Preop examination Right flank pain Right foot pain Right knee pain RUQ pain S/P gastric bypass Sacroiliitis Sleep apnea| Status: Inactive Spring ligament tear Tarsal tunnel syndrome of right side Weight disorder Resolved Dysphagia MORBID OBESITY RHEUMATOID ARTHRITIS Procedure/Surgical History Esophagogastroduodenoscopy with removal of food| Service Date: 4Partial gastrectomy;revision of gastrojejunostomy| Service Date: 4Colonoscopy| Service Date: 12/23/2022EGD - esophagogastroduodenoscopy| Service Date: 3CT of abdomen and pelvis| Service Date: 3CT of abdomen and pelvis| Service Date: 11/29/2020Upper GI endoscopy| Service Date: 12/29/2019Colonoscopy| Service Date: 12/29/2019Laboratory findings data interpretation| Service Date: 11/09/2019Uterosacral ligament| Service Date: 10/16/2019Cystourethroscopy| Service Date: 10/16/2019Anterior colporrhaphy| Service Date: 10/16/2019Kidney stone surgery| Service Date: 05/2019Kidney stone surgery| Service Date: 05/05/2019Meniscal repair- right knee| Service Date: 02/2018Tarsal tunnel release- right foot| Service Date: 2015Cystotomy| Service Date: 10/19/2011Removal of Lap Band, Conversion to Gastric bypass| Service Date: 05/20/2011Gastric bypass| Service Date: nterior colporrhaphy| Service Date: ladder Suspension| Service Date:2009Lap Band AP Standard| Service Date: 12/22/2006ppendectomy| Service Date: 1992Cholecystectomy| Service Date: 1991Hysterectomy| Service Date: 1990 Medications cyanocobalamin(cyanocobalamin 1000 mcg/mL injectable solution) cyclobenzaprine(Flexeril 10 mg oral tablet), 10 mg= 1 tab, PO, tid, PRN, 1 refills ergocalciferol(ergocalciferol 1.25 mg (50,000 intl units) oral capsule) levothyroxine(levothyroxine 25 mcg (0.025 mg) oral tablet), 25 mcg= 1 tab, PO, Daily metFORMIN(metFORMIN 500 mg oral tablet), 500 mg= 1 tab, PO, bid multivitamin(Flintstones Multivitamins), 2 tabs, PO, Daily nystatin-triamcinolone topical(Mycolog-II topical cream), See Instructions pantoprazole(pantoprazole 40 mg oral delayed release tablet), 40 mg= 1 tab, PO, Daily rosuvastatin(rosuvastatin 10 mg oral tablet), 10 mg= 1 tab, PO, Daily tirzepatide(Mounjaro), 5 mg, subQ, qSunday Allergies Levaquinmemory loss, Vomiting, Vertigo, Nausea clindamycinAbdominal pain, Diarrhea codeinemigraine trigger Social History Smoking Status Never smoked cigarettes Alcohol - Denies Alcohol Use Employment/School Status:Employed Home/Environment Lives with:Spouse Substance Abuse - Denies Substance Abuse Tobacco - Denies Tobacco Use Family History Blood clotting disorder: Negative: Mother, Father and MGM. DVT - Deep vein thrombosis: Negative: Mother, Father and MGM. Diabetes: Mother, MGM and Maternal Aunt. Diabetes mellitus: MGM. Heart disease: Father, Paternal Uncle, Paternal Uncle and Paternal Uncle. Pancreatic cancer..: Father. Health Status Family Member(s) Immunizations Vaccine Date Status SARS-CoV-2 (COVID-19) mRNA-1273 vaccine 03/04/2021 Recorded Comments : 2022-10-06: Historical information-source unspecified SARS-CoV-2 (COVID-19) mRNA-1273 vaccine 01/29/2021 Recorded Comments : 2022-10-06: Historical information-source unspecified poliovirus vaccine, inactivated 01/25/1978 Recorded Comments : 2022-10-06: Historical information-source unspecified diphth/haemophilus/pertuss/tetanus/polio 09/20/1967 Recorded Comments : 2022-10-06: Historical information-source unspecified Electronic Signature on File Electronically Reviewed/Signed by: AVEL Kelley Author Signature Dt/Tm:10/26/2023 03:52 PM Division of Women's Health [facility] Patient Care team information Care Team Personnel Name: MADONNA Ng, Ramses [place] Position: Referring Member Role: Primary Care Provider Address: [address] Name: Karma Gomez Position: HIS Supervisor_P Member Role: HIS Lifetime Name: Norma Miles Brittani Position: Pharmacist Member Role: Pharmacy - Lifetime Care Team Related Persons Name: SAMAN MARCUS Name: SAMAN MARCUS"
--- OUTSIDE RECORDS SUMMARY | 2023-11-24 07:09 | External Medical Summary ---
Author Name Unknown Address Unknown Organization : Laboratory Report Ordering Provider Test Date Status Khloe Penn 10/28/2023 10:47:00 Final Observation Date Value Abnormality Reference (Units ) Status Folate [Mass/volume] in Serum or Plasma 10/29/2023 05:23:00 16.0 (ng/mL) Final Reference Range
Low: <3 .4
Borderline: 3.4-5.4
Normal: >5.4

Specimen Received d/t: 10/28/2023 22:42:00

Lab test performed by:
[facility], [facility]
[address]
[place] [phone]
Suresh Oliva MD Performing Location
--- OUTSIDE RECORDS SUMMARY | 2023-11-24 07:09 | External Medical Summary ---
Author Name Unknown Address Unknown Organization : Laboratory Report Ordering Provider Test Date Status Khloe Penn 10/28/2023 10:47:00 Final Observation Date Value Abnormality Reference (Units ) Status Cobalamin (Vitamin B12) [Mass/volume] in Serum or Plasma 10/29/2023 05:23:00 [id number] (pg/mL) Final
Specimen Received d/t: 10/28/2023 22:42:00

Lab test performed by:
[facility]
[address]
[place] [phone]
Suresh Oliva MD Performing Location
[2023-11-24 07:22] LABS: Thyroid Stimulating Hormone 1.491 uIu/ml (0.300-4.500)
[2023-11-24] MEDS ORDERED: GLUCOSE 40% GEL 15 GM TUBE PO PRN (07:56)
[2023-11-24] MEDS ORDERED: GLUCOSE 10 TAB/TUBE PO PRN (07:56)
[2023-11-24] MEDS ORDERED: GLUCAGON FOR INJ 1 MG VIAL SQ PRN (07:56)
[2023-11-24] MEDS ORDERED: DEXTROSE 50% 50 ML SYRINGE IV PRN (07:56)
--- NOTE | 2023-11-24 08:22 | Surgery Progress Note ---
<Statement entered by Cisco Leary DO - 11/24/23 09:37> I have seen and examined this patient this am. 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 Abdomen benign. KUB no impressive for SBO. Ambulate aggressively and may start clear liquids when passing flatus. Surgery will follow up in the am. Date of Service November 24, 2023 Assessment & Plan (1) Partial small bowel obstruction: Plan: pt denies abd pain , n/v - flatus and BM heading to xray for KUB abd soft non tender VSS , WBC wnl will follow up later this AM Admission and Anticipated Discharge Date Admission Date: November 23, 2023 Subjective Pt denies abd pain seen in pena w/c headed to xray Review of Systems Gastrointestinal: no abdominal pain, no nausea and no vomiting Physical Exam Respiratory: normal respiratory effort and able to speak in complete sentences; no respiratory distress Cardiovascular: Rate/Rhythm: regular rate Gastrointestinal (Abdomen): Inspection/Auscultation: abdomen not distended Percussion/Palpation: abdomen soft; abdomen nontender Results & Data Vital Signs (Past 12 Hours) Vital Signs Temp Pulse Pulse Resp BP Pulse Ox O2 Del Method 11/24/23 07:31 97.7 F 77 16 122/77 97 Room Air 11/23/23 22:58 Room Air 11/23/23 22:49 97.5 F L 72 16 157/77 H 97 Room Air 11/23/23 21:59 85 18 168/82 H 90 Room Air 11/23/23 21:05 93 H 11/23/23 20:43 76 16 167/75 H 97 Room Air Results CBC w Diff Results: RBC 4.04 M/uL (4.20-5.40) L 11/24/23 WBC 6.07 K/ul (4.8-10.8) 11/24/23 Hgb 12.1 g/dl (12.0-16.0) 11/24/23 Hct 35.5 % (37.0-47.0) L 11/24/23 MCV 87.9 fL (80.0-100.0) 11/24/23 MCH 30.0 pg (25.0-34.0) 11/24/23 MCHC 34.1 g/dL (32.0-36.0) 11/24/23 RDW Standard Deviation 38.5 fL (36.4-46.3) 11/24/23 RDW Coefficient of Variation 11.9 % (11.5-14.5) 11/24/23 Plt Count 167 K/uL (130-400) 11/24/23 MPV 10.0 fL (9.4-12.4) 11/24/23 Neutrophils (%) (Auto) 57.9 % 11/23/23 Lymphocytes (%) (Auto) 29.9 % 11/23/23 Monocytes # (Auto) 0.89 K/uL (0.11-0.59) H 11/23/23 Eosinophils # (Auto) 0.14 K/uL (0.00-0.50) 11/23/23 Immature Granulocyte % (Auto) 0.3 % 11/23/23 Neutrophils # (Auto) 5.34 K/uL (1.40-6.50) 11/23/23 Lymphocytes # (Auto) 2.76 K/uL (1.20-3.40) 11/23/23 Monocytes # (Auto) 0.89 K/uL (0.11-0.59) H 11/23/23 Eosinophils # (Auto) 0.14 K/uL (0.00-0.50) 11/23/23 Basophils # (Auto) 0.06 K/uL (0.00-0.20) 11/23/23 Immature Granulocyte # (Auto) 0.03 K/uL (0.01-0.20) 4 PG Care Time/CCT Total # of Minutes Spent Total Time Spent with Patient: Total time spent is greater than 50% in coordination of care (as documented) at patient's floor/unit and/or counseling patient: Coding Level of Care Code 70421 SUB INP/OBS CARE 125MIN Diagnoses Partial small bowel obstruction K56.600
--- NOTE | 2023-11-24 08:40 | XRay Report ---
KUB CLINICAL HISTORY: Evaluate small bowel obstruction. COMPARISON STUDY: CT of the abdomen and pelvis November 23, 2023. FINDINGS: Cholecystectomy clips and several bowel anastomoses are incidentally noted. Contrast within the bladder from recent contrast-enhanced CT. Prominent jejunal loop is noted within the left upper quadrant, likely related to the jejunojejunal anastomosis. IMPRESSION: Prominent left upper quadrant jejunal loop, likely related to the jejunojejunal anastomo sis status post Yanet-en-Y gastric bypass. A partial small bowel obstruction could appear similar alth ough is considered less likely. ACT 112: Negative or not required by law. Electronically signed by: Guanaco Ness M.D. 11/24/2023 8:39 AM
[2023-11-24] MEDS: ENOXAPARIN INJ 40 MG/0.4 ML SYR SQ SCH (08:42)
--- NOTE | 2023-11-24 11:18 | Hospitalist Progress Note ---
<Statement entered by Dayanara Carrington MD - 11/24/23 17:20> I have reviewed vital signs, chart notes, labs and imaging. I have personally seen, evaluated and examined the patient. I have also discussed the management of the patient with the AFSANEH and I agree with the exam findings documented in the history and physical examination and the documented assessment and plan unless otherwise stated below. Promise Reed has a history of gastric bypass remotely with more recent revision this year, presents with abdominal pain nausea and vomiting and CT imaging suggestive of small bowel obstruction, likely a partial small bowel obstruction which is now resolving differential diagnosis is nausea vomiting induced by Mounjaro. on my exam she appears comfortable abdomen is soft nontender mildly distended no rebound rigidity or guarding active bowel tones are present she is already tolerating clear liquids. Reviewed abdominal x-ray film shows a dilated loop of small bowel, reviewed radiologist interpretation this may be related to postsurgical changes versus ongoing bowel obstruction. Clinically she appears to be resolving it. We will advance her diet as tolerated. I just discussed the Mounjaro with her and she had already been in the process of tapering it and does not need it anymore for diabetes control plans to discontinue it and she will follow-up with her primary care. Date of Service November 24, 2023 Assessment & Plan (1) Partial small bowel obstruction: Plan: Patient with abdominal pain, improving Denies nausea or vomiting at present. Imaging initially suggestive of partial SBO. Patient is still passing gas and having bowel movements. Exam findings with no distention and normoactive bowel sounds. Uncertain etiology of abdominal pain earlier in the week - seemingly improved. Patient is on Mounjaro at home - consideration if abdominal pain continues. -Patient changed to clear liquid diet per GI recommendations. -1/2 NSS with K started 2/2 previous NPO status and recent labs -Magnesium IV 2/2 previous n.p.o. status and recent labs -Zofran PRN -Morphine PRN -General Surgery consultation describes KUB as not impressive for SBO. Recommended starting clear liquids and advancing diet as tolerated. (2) Migraine headache: Plan: Patient with migraine headache. She reports that Tylenol typically resolves her headache. No active complaints. -Tylenol PRN Plan Chronic Medical Issues Diabetes - Well controlled. Last [id number]=0.8 on 12/2/20. Patient on Metformin and Mounjaro at home for diabetes control. -Hold home medications -ISS -Goal blood sugar 110 - 140 -Pending A1c results. Hypothyroidism - Chronic. Last TSH WNL in 2019 -Most recent TSH 1.491 -Continue Synthroid Hyperlipidemia - Chronic -Continue Crestor Allergies chronic -As needed cetirizine Asymptomatic bacteruria - UA suggestive of possible UTI. -Patient has no symptoms of UTI. Physical exam does not support diagnosis of UTI. VTE Prophylaxis - Lovenox 40 Code - Full Dispo - Pending ability to tolerate increase in diet. Admission and Anticipated Discharge Date Admission Date: November 23, 2023 Subjective Patient seen laying in bed at time of visit. Reports that her abdominal pain has been improving. States that she has continued to pass gas, and her last bowel movement was yesterday. Denies nausea, vomiting, diarrhea, urinary symptoms. Headache has improved. Review of Systems Eyes: Watering eyes Gastrointestinal: no abdominal pain, no nausea, no vomiting and no blood in stools Physical Exam Respiratory: normal respiratory effort, lungs clear to auscultation Cardiovascular: RRR, no murmur, no edema Gastrointestinal (Abdomen): Inspection/Auscultation: abdomen normal to inspection and normal bowel sounds; abdomen not distended Noted to have several well-healed laparoscopic scars. Results & Data Results & Data Vital Signs (Past 12 Hours) Vital Signs Temp Pulse Resp BP Pulse Ox O2 Del Method 11/24/23 07:31 36.5 C 77 16 122/77 97 Room Air Laboratory Results Abnormal lab results 11/23/23 11/24/23 Range/Units 17:14 06:28 RBC 4.04 L (4.20-5.40) M/uL Hct 35.5 L (37.0-47.0) % Russell # (Auto) 0.89 H (0.11-0.59) K/uL Chloride 109 H (98-107) mmol/L Creatinine 0.55 L (0.6-1.2) mg/dl BUN/Creatinine Ratio 22.1 H (10-20) Urine Appearance Cloudy A (Clear) Ur Leukocyte Esterase 3+ H (Negative) Urine WBC (Auto) >50 H (0-5) /hpf U Hyaline Cast (Auto) 3-5 H (0-2) /lpf Urine Yeast Present A (None Prsent)
[2023-11-24] MEDS ORDERED: Nursing to Pharmacy Communication SCH ×2 (11:45→14:30)
[2023-11-24] MEDS: SODIUM CHLOR 0.45% + 20MEQ KCL 20 MEQ/1,000 ML BAG IV SCH (12:22)
[2023-11-24] MEDS: CETIRIZINE HCL 10 MG TABLET PO ONE (12:22)
[2023-11-24] MEDS: MAGNESIUM SULFATE / D5W 1 GM/100 ML BAG IV ONE (12:29)
[2023-11-24] MEDS: CARBOHYDRATES FOR HYPOGLYCEMIA PO PRN (16:51)
--- NOTE | 2023-11-24 17:20 | Billing Data ---
Date of Service November 24, 2023 Coding Level of Care Code 83072 INT INP/OBS CARE
[2023-11-24] MEDS: ROSUVASTATIN CALCIUM 10 MG TAB PO SCH (20:36)
[2023-11-24 20:40] VITALS: RESP 16
[2023-11-25 06:58] LABS: Hematocrit (blood only) 36.5 % (37.0-47.0); Hemoglobin 12.9 g/dl (12.0-16.0); Mean Corpuscular Hemoglobin 30.2 pg (25.0-34.0); Mean Corpuscular Hgb Conc 35.3 g/dL (32.0-36.0); Mean Corpuscular Volume 85.5 fL (80.0-100.0); Mean Platelet Volume 10.5 fL (9.4-12.4); Platelet Count 186 K/uL (130-400); RDW Coefficient of Variation 11.9 % (11.5-14.5); RDW Standard Deviation 36.9 fL (36.4-46.3); Red Blood Count 4.27 M/uL (4.20-5.40); White Blood Count 6.55 K/ul (4.8-10.8)
[2023-11-25 07:17] LABS: BUN Creatinine Ratio 10.7 (10-20); Calcium 9.4 mg/dl (8.6-10.3); Creatinine Clr Calc Pharmacy 110.8 ml/min; Est GFR (Non-African American) 103.5 ml/min; Magnesium 1.9 mg/dl (1.7-2.4); Potassium 3.9 mmol/L (3.5-5.1)
[2023-11-25 07:25] LABS: Estimated Average Glucose 100 mg/dl; Hemoglobin A1C 5.1 % (4.5-5.6)
--- NOTE | 2023-11-25 07:43 | Surgery Progress Note ---
Date of Service November 25, 2023 Assessment & Plan (1) Partial small bowel obstruction: Plan: pt denies abd pain , n/v +flatus, no BM abd soft non tender VSS tolerating full liquids general surgery will sign off at this time , call with questions and concerns Admission and Anticipated Discharge Date Admission Date: November 23, 2023 Supervising Physician Co-Signing Physician Notes I agree with this plan. Subjective pt denies abd pain, +flatus no n/v Review of Systems Gastrointestinal: no abdominal pain, no nausea and no vomiting Physical Exam Respiratory: normal respiratory effort and able to speak in complete sentences; no respiratory distress Cardiovascular: Rate/Rhythm: regular rate Gastrointestinal (Abdomen): Inspection/Auscultation: abdomen not distended Percussion/Palpation: abdomen soft; abdomen nontender Results & Data Vital Signs (Past 12 Hours) Vital Signs Temp Pulse Resp BP Pulse Ox O2 Del Method 11/24/23 20:39 97.5 F L 72 16 127/71 98 Room Air PG Care Time/CCT Total # of Minutes Spent Total Time Spent with Patient: Total time spent is greater than 50% in coordination of care (as documented) at patient's floor/unit and/or counseling patient: Coding Level of Care Code 96429 SUB INP/OBS CARE 25MIN Diagnoses Partial small bowel obstruction K56.600
[2023-11-25 08:16] VITALS: BP 132/82; PULSE 95; TEMP 97.9; O2SAT 97
--- NOTE | 2023-11-25 12:24 | Discharge Summary ---
<Statement entered by Dayanara Carrington MD - 11/25/23 18:37> I have reviewed vital signs, chart notes, labs and imaging. I have personally seen, evaluated and examined the patient. I have also discussed the management of the patient with the AFSANEH and I agree with the exam findings documented in the history and physical examination and the documented assessment and plan unless otherwise stated below. On my exam she is awake alert appears well and is sitting in the chair abdomen is soft nontender and nondistended no rebound rigidity or guarding active bowel tones are present she has been passing flatus has not had BM yet however easily tolerated advancement of diet to low fiber for lunch today, small bowel obstruction has resolved and able to return home we provided some as needed antiemetic she stated she will not be taking Mounjaro ongoing because diabetes has essentially resolved mildly additions to the note below are that her nausea did resolve by the time of discharge and general surgery consulted, not gastroenterology Discharge Summary Date of Service November 25, 2023 Principal Dx & Hospital Course #1 = Principal Diagnosis (1) Partial small bowel obstruction: Patient is a 57-year-old female with a history of DM, migraine headaches, and s/p gastric bypass surgery performed at [facility] [place] and complicated by an anastomotic leak, with a revision and 2023. Patient had developed severe abdominal pain 1 week prior to coming to the hospital. Ultimately the abdominal pain resolved on its own but then returned with associated dizziness, nausea and vomiting. Initial imaging via CT suggested a partial SBO so gastroenterology was consulted on this case and repeat imaging via KUB suggested resolution of the obstruction. Patient continued to experience nausea, unclear if this is related to Mounjaro. Exam findings throughout entire hospital course revealed no distention and normoactive bowel sounds. Patient tolerated advancement in diet as expected. (2) Migraine headache: Patient initially presented with GI symptoms, and an associated headache. Tylenol was used to alleviate this symptom. Plan Asymptomatic bacteruria - UA suggestive of possible UTI. -Patient has no symptoms of UTI. Physical exam does not support diagnosis of UTI. Notes For Next Care Provider Medication Changes From Visit Patient states that Zofran causes her headaches. Provided patient with prescription for Compazine for as needed use to alleviate nausea/vomiting. Admission HPI Per Admitting Provider Promise Reed is a 57yo female with history of DM, HLP, GERD, s/p gastric bypass surgery performed at [facility] [place] complicated by a anastomotic leak. Patient presents today with abdominal pain. Patient developed severe upper abdominal pain approximately one week ago. She thought maybe this was secondary to a GI illness because she had some family members that were similarly ill. Her abdominal pain did improve on its own. On 11/20 she developed a severe headache/migraine with some episodic dizziness. Today her abdominal pain returned. Pain is in the LUQ mostly. She has been able to eat but then develops some nausea and non-bloody/non-bilious vomiting. She had a normal BM this AM and has been passing flatus. She reports her baseline bowel habits are that she won't have a BM for 3-4 days then has an explosive BM. She denies abdominal pain or nausea at present. No distention. Her headache persists as well - bitemporal and at the top of her head. Associated with some photophobia and nausea. Symptoms typical of her migraines. In the ER she is afebrile, HD stable ER Course: Benadryl Magnesium Zofran NSS Prochlorperazine Discharge Exam Patient sitting upright in bed at the time of exam. Respiratory normal respiratory effort, lungs clear to auscultation Cardiovascular RRR, no murmur, no edema Gastrointestinal (Abdomen) Inspection/Auscultation: abdomen normal to inspection and normal bowel sounds; abdomen not distended Discharge Plan Discharge Items Patient Disposition: Home - Self-Care Reason For Visit: ABDOMINAL PAIN, SBO Discharge Diagnosis: Small Bowel Obstruction Activity: Resume your previous activity Non-emergency contact: Primary Care Provider Call non-emergency contact if: you have any medication questions, your symptoms worsen, your pain is not controlled, your pain is worsening, your pain is unusual for you and your pain is concerning for you Follow-up/Referrals: Ramses Ng PA-C [Primary Care Provider] - Diet: Carb Consistent or DM2 Addtl Attending Provider Instructions: While in the hospital, you were diagnosed with a partial small bowel obstruction. While in the hospital we treated you with bowel rest and slowly increased her diet to tolerated. We also were able to manage your chronic headaches and resolve the nausea and vomiting that you are experiencing. Continue to be mindful of your diet until you start to feel back to normal. We will also provide you with medication in case the nausea/vomiting returns. Thank you, MADONNA Stern Pending Studies at Discharge: No Stand-Alone Forms: My [facility] [place], Smoking Cessation Medications and DC Order Prescriptions: New prochlorperazine maleate 5 mg tablet 5 mg PO DAILY PRN (Reason: nausea and vomiting) Qty: 10 0RF Continued (DME) Accu-Chek Guide test strips Strip See Rx Instructions .ROUTE .MEDSUPPLY Rx Instructions: As directed - check blood sugars 2-3 times a day; pharmacy - please APRIL - needs brand name. (DME) pen needle, diabetic [BD Ultra-Fine Aaliyah Pen Needle] 32 gauge x 5/32" needle See Rx Instructions .ROUTE .MEDSUPPLY Rx Instructions: Use to inject once a day as directed. cyclobenzaprine 10 mg tablet 10 mg PO DAILY PRN (Reason: Muscle Spasm/migraines) sumatriptan succinate [Imitrex] 50 mg Tablet 50 mg PO DAILY MDD 100 mg PRN (Reason: Migraine Headache) (DME) lancets [Accu-Chek Fastclix Lancet Drum] Misc See Rx Instructions .ROUTE .MEDSUPPLY Qty: 50 1RF Rx Instructions: As directed - check blood sugars twice a day cyanocobalamin (vitamin B-12) 1,000 mcg/mL Solution 1,000 mcg IM MONTHLY Patient Comments: due on 12/31/22 ergocalciferol (vitamin D2) [Vitamin D2] 1,250 mcg (50,000 unit) Capsule 50,000 unit PO 2XWK Patient Comments: /Wed Rx Instructions: On Tuesdays and Fridays Mounjaro 5 mg/0.5 mL pen injector 5 mg SUBCUT WK Rx Instructions: Sat/Sun metformin 500 mg tablet 500 mg PO BID levothyroxine 25 mcg tablet 25 mcg PO QAM pantoprazole 40 mg tablet,delayed release (DR/EC) 40 mg PO QAM clobetasol 0.05 % ointment 0.5 g TOPICAL HS Rx Instructions: Uses every other night - vaginal area rosuvastatin 10 mg tablet 10 mg PO HS Flintstones Complete Tablet,Chewable 2 tab PO QAM Discontinued ondansetron 4 mg tablet,disintegrating 4 mg PO Q6 PRN (Reason: nausea and vomiting) Qty: 14 0RF Discharge Orders: Discharge Order (Routine); Ordered 11/25/23 Ordered By: Jarred Pizano/Other Patient Handouts: Small Bowel Obstruction, Preventing Deep Vein Thrombosis Admission Data Admit Date/Time: 11/23/23 21:24 Attending Provider: Dayanara Carrington Admit Provider: Promise Wells Primary Care Provider: Ramses Ng Other Providers: Promise Wells; Cisco Leary Other Interventions: Discharge Summary Assessment (RN) Last Done: 11/25/23 12:43 Hospital Stay Data Consultations 11/23/23 21:00 ED Decision to Admit Stat 11/23/23 22:22 Consult General Surgery Routine Diagnostic Imagining Performed 11/23/23 17:07 CT abd pelvis IV con only Stat 11/23/23 18:11 CT head/brain wo con Stat Pending Results Patient Have Any Pending Studies at Discharge: No Discharge Instructions Given to Patient (Per Discharging Provider) While in the hospital, you were diagnosed with a partial small bowel obstruction. While in the hospital we treated you with bowel rest and slowly increased her diet to tolerated. We also were able to manage your chronic headaches and resolve the nausea and vomiting that you are experiencing. Continue to be mindful of your diet until you start to feel back to normal. We will also provide you with medication in case the nausea/vomiting returns. Thank you, MADONNA Stern Total Time Total Time Spent Total Time Spent (In Minutes): < 30 Coding Level of Care Code 19533 IN/OBS DISCH 30 MIN/LESS Diagnoses Partial small bowel obstruction K56.600 Migraine headache G43.909
== END 2023-11-25 13:04 | disposition home or self-care (01) | DRG 390 ==
LOC: ED 16:31 → 3E 21:24 → SUATTDRO 21:24 → 3E 22:52